=== PATIENT | female | born 1935 | race Caucasian/White ===

== ENCOUNTER → 2017-06-25 | Outpatient (CLI) | payer OTHER ==
[2017-06-25 12:34] LABS: BASO % 0.4 %; BASO ABS # 0.05 K/uL (0-0.2); EOS % 3.3 %; EOS ABS # 0.38 K/uL (0-0.5); HEMATOCRIT 41.9 % (37-47); IG# 0.01 K/uL (0.00-0.02); LYMPH % 25.4 %; LYMPH ABS # 2.89 K/uL (1.2-3.4); MEAN CELL VOLUME 92.9 fL (80-100); MEAN CORPUSCULAR HEMOGLOBIN 28.8 pg (25-34); MEAN PLATELET VOLUME 9.3 fL (7.4-10.4); MONO % 10.9 %; MONO ABS # 1.24 K/uL (0.11-0.59); NEUT % 59.9 %; NEUT ABS # 6.82 K/uL (1.4-6.5); PLATELET COUNT 523 K/uL (130-400); RED CELL DISTRIBUTION WIDTH CV 20.9 % (11.5-14.5); RED CELL DISTRIBUTION WIDTH SD 70.5 fL (36.4-46.3); WHITE BLOOD COUNT 11.39 K/uL (4.8-10.8)
[2017-06-25 12:59] LABS: ALBUMIN 3.4 gm/dl (3.4-5.0); ALT/SGPT 22 U/L (12-78); AST/SGOT 20 U/L (15-37); BLOOD UREA NITROGEN 23 mg/dl (7-18); CARBON DIOXIDE 32 mmol/L (21-32); CREATININE 0.82 mg/dl (0.60-1.20); GLUCOSE 84 mg/dl (70-99); POTASSIUM 4.1 mmol/L (3.5-5.1); SODIUM 138 mmol/L (136-145)
[2017-06-25 13:07] LABS: ALKALINE PHOSPHATASE 94 U/L (45-117); CHOLESTEROL 160 mg/dl (0-200); LDL CHOLESTEROL CALCULATED 76 mg/dl; TOTAL PROTEIN 7.3 gm/dl (6.4-8.2); TRANSFERRIN 253 mg/dl (200-360)
== END | disposition home or self-care (01) ==
LOC: C.LABMFLN 08:46
PROVIDERS: ATTEND Family Medicine
DX: E78.5 Hyperlipidemia, unspecified (principal); D64.9 Anemia, unspecified

== ENCOUNTER → 2017-07-31 | Outpatient (CLI) | payer OTHER ==
[2017-07-31 13:08] LABS: BASO % 0.3 %; BASO ABS # 0.03 K/uL (0-0.2); EOS % 1.1 %; EOS ABS # 0.13 K/uL (0-0.5); HEMATOCRIT 44.2 % (37-47); HEMOGLOBIN 13.9 g/dL (12.0-16.0); IG# 0.01 K/uL (0.00-0.02); LYMPH % 33.4 %; LYMPH ABS # 3.94 K/uL (1.2-3.4); MEAN CELL VOLUME 94.6 fL (80-100); MEAN CORPUSCULAR HEMOGLOBIN 29.8 pg (25-34); MEAN CORPUSCULAR HGB CONC 31.4 g/dl (32-36); MEAN PLATELET VOLUME 9.7 fL (7.4-10.4); MONO % 11.1 %; MONO ABS # 1.31 K/uL (0.11-0.59); NEUT ABS # 6.37 K/uL (1.4-6.5); PLATELET COUNT 481 K/uL (130-400); RED CELL DISTRIBUTION WIDTH SD 59.1 fL (36.4-46.3); WHITE BLOOD COUNT 11.79 K/uL (4.8-10.8)
== END | disposition home or self-care (01) ==
LOC: C.LABMFLN 09:23
PROVIDERS: ATTEND Family Medicine
DX: D64.9 Anemia, unspecified (principal)

== ENCOUNTER → 2017-09-04 | Outpatient (CLI) | payer OTHER ==
[2017-09-04 12:57] LABS: BASO % 0.3 %; BASO ABS # 0.04 K/uL (0-0.2); EOS % 1.5 %; EOS ABS # 0.17 K/uL (0-0.5); HEMATOCRIT 41.5 % (37-47); HEMOGLOBIN 13.6 g/dL (12.0-16.0); IG# 0.01 K/uL (0.00-0.02); LYMPH % 34.2 %; LYMPH ABS # 3.98 K/uL (1.2-3.4); MEAN CELL VOLUME 96.1 fL (80-100); MEAN CORPUSCULAR HEMOGLOBIN 31.5 pg (25-34); MEAN CORPUSCULAR HGB CONC 32.8 g/dl (32-36); MEAN PLATELET VOLUME 9.6 fL (7.4-10.4); MONO % 9.5 %; NEUT % 54.4 %; NEUT ABS # 6.33 K/uL (1.4-6.5); PLATELET COUNT 439 K/uL (130-400); RED CELL DISTRIBUTION WIDTH CV 15.2 % (11.5-14.5); RED CELL DISTRIBUTION WIDTH SD 53.1 fL (36.4-46.3); WHITE BLOOD COUNT 11.63 K/uL (4.8-10.8)
[2017-09-04 14:29] LABS: BLOOD UREA NITROGEN 20 mg/dl (7-18); CALCIUM 9.5 mg/dl (8.5-10.1); CARBON DIOXIDE 29 mmol/L (21-32); CREATININE 0.87 mg/dl (0.60-1.20); GLUCOSE 87 mg/dl (70-99); SODIUM 134 mmol/L (136-145)
[2017-09-04 14:32] LABS: TRANSFERRIN 307 mg/dl (200-360)
== END | disposition home or self-care (01) ==
LOC: C.LABMFLN 10:20
PROVIDERS: ATTEND Family Medicine
DX: D64.9 Anemia, unspecified (principal); I25.10 Atherosclerotic heart disease of native coronary artery without angina pectoris

== ENCOUNTER → 2017-09-24 | Outpatient (CLI) | payer OTHER ==
[2017-09-24 13:07] LABS: BASO % 0.2 %; BASO ABS # 0.03 K/uL (0-0.2); EOS % 1.5 %; HEMATOCRIT 40.9 % (37-47); HEMOGLOBIN 13.3 g/dL (12.0-16.0); IG# 0.02 K/uL (0.00-0.02); LYMPH ABS # 4.05 K/uL (1.2-3.4); MEAN CELL VOLUME 96.9 fL (80-100); MEAN CORPUSCULAR HEMOGLOBIN 31.5 pg (25-34); MEAN CORPUSCULAR HGB CONC 32.5 g/dl (32-36); MEAN PLATELET VOLUME 9.4 fL (7.4-10.4); MONO % 8.8 %; MONO ABS # 1.15 K/uL (0.11-0.59); NEUT % 58.3 %; NEUT ABS # 7.63 K/uL (1.4-6.5); PLATELET COUNT 490 K/uL (130-400); RED CELL DISTRIBUTION WIDTH CV 15.5 % (11.5-14.5); RED CELL DISTRIBUTION WIDTH SD 55.3 fL (36.4-46.3); WHITE BLOOD COUNT 13.08 K/uL (4.8-10.8)
[2017-09-24 13:32] LABS: BLOOD UREA NITROGEN 18 mg/dl (7-18); CALCIUM 9.1 mg/dl (8.5-10.1); CARBON DIOXIDE 33 mmol/L (21-32); CREATININE 0.92 mg/dl (0.60-1.20); GLUCOSE 76 mg/dl (70-99); POTASSIUM 4.1 mmol/L (3.5-5.1); SODIUM 139 mmol/L (136-145)
[2017-09-24 13:33] LABS: TRANSFERRIN 249 mg/dl (200-360)
== END | disposition home or self-care (01) ==
LOC: C.LABMFLN 09:15
PROVIDERS: ATTEND Family Medicine
DX: D64.9 Anemia, unspecified (principal); I25.10 Atherosclerotic heart disease of native coronary artery without angina pectoris

== ENCOUNTER → 2018-01-02 | Outpatient (CLI) | payer OTHER ==
[2018-01-02 12:36] LABS: BASO % 0.4 %; BASO ABS # 0.05 K/uL (0-0.2); EOS % 2.7 %; EOS ABS # 0.33 K/uL (0-0.5); HEMATOCRIT 42.3 % (37-47); HEMOGLOBIN 13.5 g/dL (12.0-16.0); IG# 0.01 K/uL (0.00-0.02); LYMPH % 39.3 %; LYMPH ABS # 4.89 K/uL (1.2-3.4); MEAN CELL VOLUME 97.5 fL (80-100); MEAN CORPUSCULAR HEMOGLOBIN 31.1 pg (25-34); MEAN CORPUSCULAR HGB CONC 31.9 g/dl (32-36); MEAN PLATELET VOLUME 9.5 fL (7.4-10.4); MONO % 11.1 %; MONO ABS # 1.38 K/uL (0.11-0.59); NEUT % 46.4 %; NEUT ABS # 5.77 K/uL (1.4-6.5); PLATELET COUNT 518 K/uL (130-400); RED CELL DISTRIBUTION WIDTH CV 13.9 % (11.5-14.5); RED CELL DISTRIBUTION WIDTH SD 49.7 fL (36.4-46.3); WHITE BLOOD COUNT 12.43 K/uL (4.8-10.8)
== END | disposition home or self-care (01) ==
LOC: C.LABMFLN 10:19
PROVIDERS: ATTEND Family Medicine
DX: D64.9 Anemia, unspecified (principal)

== ENCOUNTER 2019-09-22 16:28 | Inpatient (IN) ==
[2019-09-22] MEDS ORDERED: SODIUM CHLORIDE 0.9% 500 ML IV SCH (17:15)
--- NOTE | 2019-09-22 17:20 | Emergency Department Note ---
Impression & Plan Hypoxia, Mass of left lung, Atelectasis ED Provider Note NAME: IVAN SILVEIRA AGE: 83 SEX: F : 1935 ARRIVES VIA: Walk-In INFORMANT: Patient ED PROVIDER(S): Al Etienne DO CHIEF COMPLAINT: Shortness of breath HPI: Patient is an 83-year-old female who presents the ER for shortness of breath which started this past Friday. She notes that she was a previous smoker. No history of cancer. Shortness of breath has been getting gradually worse since Friday. She had an x-ray as an outpatient which showed a collapsed left upper lobe. She has pain on the left side of her chest which is been there since Friday as well. Pain has been fairly constant. Currently a 4 out of 10. No cough runny nose or fevers. No exposure to anyone with coronavirus. Denies any recent trips or travel. No travel out of state. No loss of taste or smell. No abdominal pain nausea vomiting diarrhea. No dysuria urgency or frequency. No other complaints with the exception of shortness of breath which is now resolved as she is on oxygen. ROS: See above HPI for pertinent positives & negatives. A total of 10 systems reviewed and were otherwise negative. PAST MEDICAL HISTORY:See Below PAST SURGICAL HISTORY:See Below FAMILY HISTORY:See Below SOCIAL HISTORY:See Below HOME MEDICATIONS:See Below ALLERGIES:See Below VITALS:See Below PHYSICAL EXAMINATION: GENERAL: Sitting up in bed, alert, well appearing, well nourished, no distress, non-toxic EYE EXAM: normal conjunctiva. PERRL and EOM's grossly intact. OROPHARYNX: no exudate, no erythema, lips, buccal mucosa, and tongue normal and mucous membranes are moist NECK: supple, no nuchal rigidity, no adenopathy, non-tender LUNGS: Loss of breath sounds in left upper lobe. Normal chest wall mechanics HEART: no murmurs, S1 normal and S2 normal ABDOMEN: abdomen soft, non-tender, normo-active bowel sounds, no masses, no rebound or guarding. BACK: Back is symmetrical on inspection and there is no deformity, no midline tenderness, no CVA tenderness. SKIN: no rashes and no bruising UPPER EXTREMITIES: upper extremities are grossly normal. LOWER EXTREMITIES: No pitting edema. Calves are equal bilateral NEURO EXAM: Normal sensorium, cranial nerves II-XII grossly intact, normal speech, no gross weakness of arms, no gross weakness of legs. MEDICAL DECISION MAKING: Patient is an 83-year-old female who presents the ER for left upper chest pain and shortness of breath which is been present since this past Friday. She had an x-ray performed as an outpatient which showed consolidation of the lung. She was referred into the ER. IV was established blood work was obtained. She was found to be hypoxic at 88% placed on 2 L nasal cannula. She had complete resolution of her symptoms at that time. Labs show mild leukocytosis of 12,000. Mild anemia at 11. INR unremarkable. BMP with a mild hypokalemia 2.9. She is given IV potassium. CO2 elevated at 33. LFTs bilirubin was unremarkable. Troponin was negative. BNP was elevated. UA was negative. COVID was negative and requested by the clay thrower. CT of the chest shows hilar adenopathy with a mass causing atelectasis. Discussed with the clay thrower and he was agreeable to keeping the patient here. Discussed with the hospitalist patient be admitted for further work-up. Patient was updated at bedside. Triage Nursing notes reviewed. Prior medical records reviewed Vital Signs: reviewed and remarkable for hypoxic Differential diagnosis: Differential diagnoses includes but is not limited to pneumonia, bronchitis, COPD/Asthma exacerbation, pneumothorax, pulmonary embolism, congestive heart failure, acute coronary syndrome ER treatment provided: See below Diagnostics interpreted by me: ECG: Sinus rhythm rate of 68 Normal axis T WI in the inferior leads Poor baseline PVC Normal QTC Cardiac Monitoring: An order was placed for continuous cardiac monitoring. The monitor shows a rate of 72 with sinus rhythm. Laboratory studies: As stated above and show below. Imaging studies: Portable AP upright 1 view of the chest shows n left mid lung/upper lobe infiltrate/atelectasis. CT of the chest shows left hilar mass causing atelectasis and collapse of the lung. Consultation(s): Discussed with Dr. Lopez from the clay thrower/stock wetter. Agreed with keeping the patient and recommended n.p.o. ED COURSE: Procedures: none Critical Care: I have personally spent 40 minutes of critical care time in the direct management of this patient. This includes bedside care, interpretation of diagnostic studies, and testing, discussion with consultants, patient, and family members, and other required patient management activities. This 40 minutes is in excess of all separately billable procedures. 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 Beliefs That Will Affect Care: None marital status: Current Living Situation: Alone current occupational status: retired Feels Safe at Home: Yes Smoking Status: Former smoker Tobacco Type: cigarettes ; Age Started Using Tobacco: 20 ; Age Quit Using Tobacco: 71 ; packs per day: 0.25 ; Second Hand Exposure: No ; Hx Alcohol Use: No Hx Substance Use: Yes substance use type: prescription drug Substance Use Type Other:: Hydrocodone-Acetaminophen Last Used Substance: Unknown Childhood Exposure to Second-Hand Smoke: No caffeine: Yes (tea and coffee) Dental Care, Regularly: Yes Physical Activity Frequency: Daily Seatbelt Use: always Sunscreen Use: Yes Do you think of yourself as: straight/heterosexual Allergies Allergies Allergy/AdvReac Type Severity Reaction Status Date / Time diclofenac Allergy Verified 09/21/19 10:57 dicloxacillin Allergy Verified 09/21/19 10:57 levofloxacin Allergy Verified 09/21/19 10:57 naproxen Allergy Verified 09/21/19 10:57 Penicillins Allergy Verified 09/21/19 10:57 risedronate sodium Allergy Verified 09/21/19 10:57 [From Actonel] Home Meds Home Medications Medication Instructions Recorded Confirmed rosuvastatin 20 mg tablet 20 mg PO HS tab 02/12/19 09/22/19 albuterol sulfate 2 puffs INHALATION Q4H PRN 09/22/19 09/22/19 albuterol sulfate 2.5 mg INHALATION QID 09/22/19 09/22/19 budesonide 1 mg INH QID 09/22/19 09/22/19 Previous Rx's Medication Instructions Recorded omeprazole 40 mg capsule,delayed 40 mg PO DAILY #90 cap 10/22/18 release Ca 600 mg-D3 800 unit-magnes 40 1 tab PO BID #180 tab 11/13/18 rb-sazh-krz-kevin-boron chewable tablet aspirin 81 mg tablet,delayed 81 mg PO DAILY #90 tab 11/13/18 release furosemide 40 mg tablet 40 mg PO DAILY #90 tab 07/05/19 metoprolol succinate 25 mg 12.5 mg PO DAILY #45 tab 11/13/18 tablet,extended release 24 hr multivitamin 1 tab PO DAILY #90 tab 11/13/18 nitroglycerin 0.4 mg sublingual 0.4 mg SL Q5M #30 tab 11/13/18 tablet Bifidobacterium infantis 4 mg 4 mg PO DAILY #30 cap 04/20/19 capsule acetaminophen 325 mg capsule 650 mg PO Q4H PRN #60 cap 04/20/19 chlorhexidine gluconate 0.12 % 15 ml BUCCAL BID #1500 ml 04/20/19 mouthwash cholecalciferol (vitamin D3) 50 2,000 units PO BID #30 tab 04/20/19 mcg (2,000 unit) tablet tiotropium bromide 18 mcg capsule 1 cap INH DAILY #20 puffs 05/06/19 with inhalation device tizanidine 2 mg capsule 1 mg PO TID PRN #90 cap 05/21/19 hydrocodone 5 mg-acetaminophen 325 1 tab PO Q6H PRN #120 tab 06/23/19 mg tablet gabapentin 300 mg capsule 300 mg PO QID #120 cap 08/16/19 sertraline 25 mg tablet 25 mg PO DAILY #90 tab 08/16/19 gabapentin 100 mg capsule 100 mg PO HS #90 cap 09/01/19 doxycycline hyclate 100 mg capsule 100 mg PO BID #20 cap 09/21/19 prednisone 20 mg tablet 20 mg PO DAILY #5 tab 09/21/19 Results & Data (ED) Vital Signs Vital Signs - 24 hr 09/22/19 16:29 09/22/19 18:17 09/22/19 19:17 Temperature 36.6 C Temperature Source Oral Pulse Rate 76 84 Pulse Rate [Left Finger] 66 Pulse Rate from SpO2 Sensor 76 Respiratory Rate 19 22 22 Blood Pressure 133/69 152/76 H Blood Pressure [Right Arm] 112/89 Blood Pressure Mean 90 111 Blood Pressure Mean [Right Arm] 96 Blood Pressure Position Sitting Pulse Oximetry 89 L 97 97 Oxygen Delivery Method Room Air Nasal Cannula Oxygen Flow Rate 2 Sepsis Recent Fever Within 48 Hours No Sepsis Action Taken by Nursing No Action Required 09/22/19 19:43 09/22/19 19:44 09/22/19 19:45 Temperature Temperature Source Pulse Rate 68 Pulse Rate [Left Finger] Pulse Rate from SpO2 Sensor 73 Respiratory Rate 24 Blood Pressure 133/83 Blood Pressure [Right Arm] Blood Pressure Mean 100 Blood Pressure Mean [Right Arm] Blood Pressure Position Pulse Oximetry 80 L 99 99 Oxygen Delivery Method Room Air Nasal Cannula Nasal Cannula Oxygen Flow Rate 2 2 Sepsis Recent Fever Within 48 Hours Sepsis Action Taken by Nursing 09/22/19 20:15 09/22/19 20:30 09/22/19 21:00 Temperature Temperature Source Pulse Rate 69 79 66 Pulse Rate [Left Finger] Pulse Rate from SpO2 Sensor 71 72 68 Respiratory Rate 24 22 24 Blood Pressure 147/85 H 116/95 127/76 Blood Pressure [Right Arm] Blood Pressure Mean 107 105 83 Blood Pressure Mean [Right Arm] Blood Pressure Position Pulse Oximetry 99 100 100 Oxygen Delivery Method Nasal Cannula Nasal Cannula Nasal Cannula Oxygen Flow Rate 2 2 2 Sepsis Recent Fever Within 48 Hours Sepsis Action Taken by Nursing 09/22/19 21:15 09/22/19 21:30 Temperature Temperature Source Pulse Rate 71 66 Pulse Rate [Left Finger] Pulse Rate from SpO2 Sensor 69 65 Respiratory Rate 24 22 Blood Pressure 139/66 129/76 Blood Pressure [Right Arm] Blood Pressure Mean 92 95 Blood Pressure Mean [Right Arm] Blood Pressure Position Pulse Oximetry 99 99 Oxygen Delivery Method Nasal Cannula Nasal Cannula Oxygen Flow Rate 2 2 Sepsis Recent Fever Within 48 Hours Sepsis Action Taken by Nursing Laboratory Data Result diagrams: 09/22/19 17:32 09/22/19 17:32 Lab Results 09/22/19 09/22/19 09/22/19 Range/Units 17:31 17:32 17:32 WBC 12.64 H (4.8-10.8) K/uL RBC 4.57 (4.2-5.4) M/uL Hgb 11.8 L (12.0-16.0) g/dL POC Hgb (12.0-16.0) g/dl Hct 37.8 (37-47) % POC Hct (37-47) % MCV 82.7 (80-100) fL MCH 25.8 (25-34) pg MCHC 31.2 L (32-36) g/dL RDW Std Deviation 55.9 H (36.4-46.3) fL RDW Coeff of Jj 18.7 H (11.5-14.5) % Plt Count 634 H (130-400) K/uL MPV 8.9 (7.4-10.4) fL Immature Gran % (Auto) 0.2 % Neut % (Auto) 84.1 % Lymph % (Auto) 10.7 % Jefferson % (Auto) 4.9 % Eos % (Auto) 0.0 % Baso % (Auto) 0.1 % Immature Gran # (Auto) 0.02 (0.00-0.02) K/uL Neut # (Auto) 10.64 H (1.4-6.5) K/uL Lymph # (Auto) 1.35 (1.2-3.4) K/uL Jefferson # (Auto) 0.62 H (0.11-0.59) K/uL Eos # (Auto) 0.00 (0-0.5) K/uL Baso # (Auto) 0.01 (0-0.2) K/uL PT 11.0 (9.0-12.0) Seconds INR 1.0 (0.9-1.1) APTT 29.3 (21.0-31.0) Seconds PTT Ratio 1.1 POC Sodium (135-144) mmol/L Sodium (136-145) mmol/L POC Potassium (3.3-5.0) mmol/L Potassium (3.5-5.1) mmol/L POC Chloride (101-112) mmol/L Chloride (98-107) mmol/L Carbon Dioxide (21-32) mmol/L POC Total CO2 (24-31) mmol/L Anion Gap (3-11) POC Anion Gap (16-25) mmol/L POC BUN (7-18) mg/dl BUN (7-18) mg/dl Creatinine (0.6-1.2) mg/dl POC Creatinine (0.6-1.3) mg/dl Est Cr Clr Drug Dosing Est GFR ( Amer) Est GFR (Non-Af Amer) BUN/Creatinine Ratio (10-20) Glucose (70-99) mg/dl POC Glucose (other) (70-99) mg/dl Calcium (8.5-10.1) mg/dl POC Ioniz Calcium Kedar (1.12-1.32) mmol/l Total Bilirubin (0.2-1) mg/dl AST (15-37) U/L ALT (12-78) U/L Alkaline Phosphatase (45-117) U/L Troponin I (0-0.045) ng/ml NT-Pro-B Natriuret Pep (0-1800) pg/ml Total Protein (6.4-8.2) gm/dl Albumin (3.4-5.0) gm/dl Globulin (2.5-4.0) gm/dl Albumin/Globulin Ratio (0.9-2) Urine Color Urine Appearance (Clear) Urine pH (4.5-7.5) Ur Specific Marion (1.000-1.030) Urine Protein (Negative) Urine Glucose (UA) (Negative) Urine Ketones (Negative) Urine Blood (Negative) Urine Nitrite (Negative) Urine Bilirubin (Negative) Urine Urobilinogen (Negative) Ur Leukocyte Esterase (Negative) COVID-19 PCR NEGATIVE (Negative) Influenza Type A (PCR) (Neg) Influenza Type B (PCR) (Neg) SARS-CoV-2 RNA (RT-PCR) 09/22/19 09/22/19 09/22/19 Range/Units 17:32 17:32 17:32 WBC (4.8-10.8) K/uL RBC (4.2-5.4) M/uL Hgb (12.0-16.0) g/dL POC Hgb (12.0-16.0) g/dl Hct (37-47) % POC Hct (37-47) % MCV (80-100) fL MCH (25-34) pg MCHC (32-36) g/dL RDW Std Deviation (36.4-46.3) fL RDW Coeff of Jj (11.5-14.5) % Plt Count (130-400) K/uL MPV (7.4-10.4) fL Immature Gran % (Auto) % Neut % (Auto) % Lymph % (Auto) % Jefferson % (Auto) % Eos % (Auto) % Baso % (Auto) % Immature Gran # (Auto) (0.00-0.02) K/uL Neut # (Auto) (1.4-6.5) K/uL Lymph # (Auto) (1.2-3.4) K/uL Jefferson # (Auto) (0.11-0.59) K/uL Eos # (Auto) (0-0.5) K/uL Baso # (Auto) (0-0.2) K/uL PT (9.0-12.0) Seconds INR (0.9-1.1) APTT (21.0-31.0) Seconds PTT Ratio POC Sodium (135-144) mmol/L Sodium 136 (136-145) mmol/L POC Potassium (3.3-5.0) mmol/L Potassium 2.9 L (3.5-5.1) mmol/L POC Chloride (101-112) mmol/L Chloride 97 L (98-107) mmol/L Carbon Dioxide 33 H (21-32) mmol/L POC Total CO2 (24-31) mmol/L Anion Gap 6.0 (3-11) POC Anion Gap (16-25) mmol/L POC BUN (7-18) mg/dl BUN 17 (7-18) mg/dl Creatinine 0.69 (0.6-1.2) mg/dl POC Creatinine (0.6-1.3) mg/dl Est Cr Clr Drug Dosing Not Reportable Est GFR ( Amer) 94.0 Est GFR (Non-Af Amer) 81.1 BUN/Creatinine Ratio 25.0 H (10-20) Glucose 119 H (70-99) mg/dl POC Glucose (other) (70-99) mg/dl Calcium 9.1 (8.5-10.1) mg/dl POC Ioniz Calcium Kedar (1.12-1.32) mmol/l Total Bilirubin 0.3 (0.2-1) mg/dl AST 23 (15-37) U/L ALT 17 (12-78) U/L Alkaline Phosphatase 82 (45-117) U/L Troponin I 0.018 (0-0.045) ng/ml NT-Pro-B Natriuret Pep 2691 H (0-1800) pg/ml Total Protein 7.6 (6.4-8.2) gm/dl Albumin 2.7 L (3.4-5.0) gm/dl Globulin 4.9 H (2.5-4.0) gm/dl Albumin/Globulin Ratio 0.6 L (0.9-2) Urine Color Urine Appearance (Clear) Urine pH (4.5-7.5) Ur Specific Marion (1.000-1.030) Urine Protein (Negative) Urine Glucose (UA) (Negative) Urine Ketones (Negative) Urine Blood (Negative) Urine Nitrite (Negative) Urine Bilirubin (Negative) Urine Urobilinogen (Negative) Ur Leukocyte Esterase (Negative) COVID-19 PCR (Negative) Influenza Type A (PCR) Neg for Influ A (Neg) Influenza Type B (PCR) Neg for Influ B (Neg) SARS-CoV-2 RNA (RT-PCR) Cancelled 09/22/19 09/22/19 Range/Units 17:44 19:37 WBC (4.8-10.8) K/uL RBC (4.2-5.4) M/uL Hgb (12.0-16.0) g/dL POC Hgb 13.3 (12.0-16.0) g/dl Hct (37-47) % POC Hct 39 (37-47) % MCV (80-100) fL MCH (25-34) pg MCHC (32-36) g/dL RDW Std Deviation (36.4-46.3) fL RDW Coeff of Jj (11.5-14.5) % Plt Count (130-400) K/uL MPV (7.4-10.4) fL Immature Gran % (Auto) % Neut % (Auto) % Lymph % (Auto) % Jefferson % (Auto) % Eos % (Auto) % Baso % (Auto) % Immature Gran # (Auto) (0.00-0.02) K/uL Neut # (Auto) (1.4-6.5) K/uL Lymph # (Auto) (1.2-3.4) K/uL Jefferson # (Auto) (0.11-0.59) K/uL Eos # (Auto) (0-0.5) K/uL Baso # (Auto) (0-0.2) K/uL PT (9.0-12.0) Seconds INR (0.9-1.1) APTT (21.0-31.0) Seconds PTT Ratio POC Sodium 138 (135-144) mmol/L Sodium (136-145) mmol/L POC Potassium 2.9 L (3.3-5.0) mmol/L Potassium (3.5-5.1) mmol/L POC Chloride 94 L (101-112) mmol/L Chloride (98-107) mmol/L Carbon Dioxide (21-32) mmol/L POC Total CO2 34 H (24-31) mmol/L Anion Gap (3-11) POC Anion Gap 14.0 L (16-25) mmol/L POC BUN 17 (7-18) mg/dl BUN (7-18) mg/dl Creatinine (0.6-1.2) mg/dl POC Creatinine 0.7 (0.6-1.3) mg/dl Est Cr Clr Drug Dosing Est GFR ( Amer) Est GFR (Non-Af Amer) BUN/Creatinine Ratio (10-20) Glucose (70-99) mg/dl POC Glucose (other) 118 H (70-99) mg/dl Calcium (8.5-10.1) mg/dl POC Ioniz Calcium Kedar 1.14 (1.12-1.32) mmol/l Total Bilirubin (0.2-1) mg/dl AST (15-37) U/L ALT (12-78) U/L Alkaline Phosphatase (45-117) U/L Troponin I (0-0.045) ng/ml NT-Pro-B Natriuret Pep (0-1800) pg/ml Total Protein (6.4-8.2) gm/dl Albumin (3.4-5.0) gm/dl Globulin (2.5-4.0) gm/dl Albumin/Globulin Ratio (0.9-2) Urine Color Yellow Urine Appearance Clear (Clear) Urine pH 5.0 (4.5-7.5) Ur Specific Marion > 1.045 H (1.000-1.030) Urine Protein Negative (Negative) Urine Glucose (UA) Negative (Negative) Urine Ketones Negative (Negative) Urine Blood Negative (Negative) Urine Nitrite Negative (Negative) Urine Bilirubin Negative (Negative) Urine Urobilinogen Negative (Negative) Ur Leukocyte Esterase Negative (Negative) COVID-19 PCR (Negative) Influenza Type A (PCR) (Neg) Influenza Type B (PCR) (Neg) SARS-CoV-2 RNA (RT-PCR) Administered Medications Ioversol (Optiray 320 100ml) 94 ml IV ONCE PRN PRN Reason: Interaction Checking Stop: 09/26/19 18:58 Last Admin: 09/22/19 19:00 Dose: 94 ml Documented by: [id number] Discontinued Medications Sodium Chloride (Nss) 500 mls @ 999 mls/hr IV .Q31M BLAS Stop: 09/22/19 17:45 Last Infusion: 09/22/19 19:23 Dose: 0 mls/hr Documented by: [id number] Admin: 09/22/19 17:30 Dose: 999 mls/hr Documented by: [id number] Potassium Chloride (K Alonso / Wtr) 10 meq in 100 mls @ 100 mls/hr IV Q1H BLAS Stop: 09/22/19 21:29 Last Admin: 09/22/19 21:14 Dose: 100 mls/hr Documented by: [id number] Infusion: 09/22/19 21:13 Dose: 0 mls/hr Documented by: [id number] Admin: 09/22/19 20:09 Dose: 100 mls/hr Documented by: [id number] Discharge Plan Visit Data Chief Complaint: Referred by Doctor Stated Complaint: CT SCAN, COLLAPSED LUNG ED Provider: Al Etienne Discharge Problem: Hypoxia, Mass of left lung, Atelectasis Forms Stand Alone Forms: [facility] Prescriptions Prescriptions: No Action omeprazole 40 mg capsule,delayed release(DR/EC) 40 mg PO DAILY Qty: 90 RF: 3 Align 4 mg capsule 4 mg PO DAILY Qty: 30 RF: 0 chlorhexidine gluconate 0.12 % mouthwash 15 ml BUCCAL BID Qty: 1500 RF: 0 cholecalciferol (vitamin D3) 2,000 unit tablet 2,000 units PO BID Qty: 30 RF: 0 acetaminophen 325 mg capsule 650 mg PO Q4H PRN (Reason: fever or pain) Qty: 60 RF: 0 Spiriva with HandiHaler 18 mcg capsule, w/inhalation device 1 cap INH DAILY Qty: 20 RF: 3 hydrocodone-acetaminophen 5-325 mg tablet 1 tab PO Q6H PRN (Reason: pain) Qty: 120 RF: 0 gabapentin 300 mg capsule 300 mg PO QID Qty: 120 RF: 3 sertraline 25 mg tablet 25 mg PO DAILY Qty: 90 RF: 0 gabapentin 100 mg capsule 100 mg PO HS Qty: 90 RF: 0 aspirin 81 mg tablet,delayed release (DR/EC) 81 mg PO DAILY Qty: 90 RF: 3 Caltrate 600-D Plus Minerals 600 mg calcium- 800 unit-40 mg tablet,chewable 1 tab PO BID Qty: 180 RF: 3 furosemide 40 mg tablet 40 mg PO DAILY Qty: 90 RF: 1 metoprolol succinate 25 mg tablet extended release 24 hr 12.5 mg PO DAILY Qty: 45 RF: 3 multivitamin [Daily Multi-Vitamin] tablet 1 tab PO DAILY Qty: 90 RF: 3 nitroglycerin 0.4 mg tablet, sublingual 0.4 mg SL Q5M Qty: 30 RF: 0 tizanidine 2 mg capsule 1 mg PO TID PRN (Reason: muscle spasticity) Qty: 90 RF: 3 rosuvastatin 20 mg tablet 20 mg PO HS RF: 0 doxycycline hyclate 100 mg capsule 100 mg PO BID Qty: 20 RF: 0 prednisone 20 mg tablet 20 mg PO DAILY Qty: 5 RF: 0 albuterol sulfate 2.5 mg /3 mL (0.083 %) solution for nebulization 2.5 mg inhalation QID RF: 0 albuterol sulfate 90 mcg/actuation HFA aerosol inhaler 2 puffs inhalation Q4H PRN (Reason: Shortness Of Breath Or Wheezing) RF: 0 budesonide 1 mg/2 mL suspension for nebulization 1 mg INH QID RF: 0
[2019-09-22 17:44] LABS: Basophils # (auto) 0.01 K/uL (0-0.2); Basophils % (auto) 0.1 %; Hematocrit (blood only) 37.8 % (37-47); Hemoglobin 11.8 g/dL (12.0-16.0); Immature Granulocytes # (auto) 0.02 K/uL (0.00-0.02); Immature Granulocytes % (auto) 0.2 %; Lymphocytes # (auto) 1.35 K/uL (1.2-3.4); Lymphocytes % (auto) 10.7 %; Mean Corpuscular Hemoglobin 25.8 pg (25-34); Mean Corpuscular Hgb Conc 31.2 g/dL (32-36); Mean Corpuscular Volume 82.7 fL (80-100); Mean Platelet Volume 8.9 fL (7.4-10.4); Monocytes # (auto) 0.62 K/uL (0.11-0.59); Monocytes % (auto) 4.9 %; Neutrophils # (auto) 10.64 K/uL (1.4-6.5); Neutrophils % (auto) 84.1 %; Platelet Count 634 K/uL (130-400); RDW Coefficient of Variation 18.7 % (11.5-14.5); RDW Standard Deviation 55.9 fL (36.4-46.3); Red Blood Count 4.57 M/uL (4.2-5.4); White Blood Count 12.64 K/uL (4.8-10.8)
[2019-09-22 17:55] LABS: Partial Thromboplastin Ratio 1.1; Partial Thromboplastin Time 29.3 Seconds (21.0-31.0)
--- NOTE | 2019-09-22 17:56 | XRay Report ---
XR chest 1V portable CLINICAL HISTORY: Dyspnea COMPARISON STUDY: No previous studies for comparison. FINDINGS: Patient is rotated. Incidental note is made of multiple healing right-sided rib fractures a nd an old right clavicular fracture. Intracanalicular electrode is partially imaged. There is no pneu mothorax. Linear right basilar opacity suggests atelectasis. Elevation of left hemidiaphragm is suspe cted. There may be a small to moderate left pleural effusion. Hazy left mid and upper lung opacity is noted with lucency adjacent to the aortic arch. Left hilar prominence is noted. IMPRESSION: 1. Left lung volume loss with elevation of the left hemidiaphragm and hazy left mid and upper lung ai rspace opacity with lucency outlining the aortic arch. This raises the possibility of left upper lobe collapse. A chest CT is recommended to exclude an underlying mass. 2. Suspected left pleural effusion. ACT 112: Negative or not required by law. Electronically signed by: Brian Last M.D. 09/22/2019 5:55 PM
[2019-09-22 17:57] LABS: iSTAT Creatinine 0.7 mg/dl (0.6-1.3); iSTAT Hemoglobin 13.3 g/dl (12.0-16.0); iSTAT Ionized Calcium 1.14 mmol/l (1.12-1.32); iSTAT Potassium 2.9 mmol/L (3.3-5.0)
[2019-09-22 18:01] LABS: Alanine Aminotransferase 17 U/L (12-78); Albumin Level 2.7 gm/dl (3.4-5.0); Aspartate Aminotransferase 23 U/L (15-37); Blood Urea Nitrogen 17 mg/dl (7-18); Calcium 9.1 mg/dl (8.5-10.1); Carbon Dioxide 33 mmol/L (21-32); Chloride 97 mmol/L (98-107); Est GFR (Non-African American) 81.1; Glucose 119 mg/dl (70-99); Potassium 2.9 mmol/L (3.5-5.1); Sodium 136 mmol/L (136-145)
[2019-09-22 18:06] LABS: Albumin Globulin Ratio 0.6 (0.9-2); Alkaline Phosphatase 82 U/L (45-117); Bilirubin,Total 0.3 mg/dl (0.2-1); Globulin 4.9 gm/dl (2.5-4.0); NT Pro B Type Natriuretic Pept 2691 pg/ml (0-1800); Total Protein 7.6 gm/dl (6.4-8.2); Troponin I 0.018 ng/ml (0-0.045)
[2019-09-22 18:47] LABS: Influenza A virus by PCR Neg for Influ A (Neg); Influenza B virus by PCR Neg for Influ B (Neg)
[2019-09-22] MEDS ORDERED: IOVERSOL 100ml IV PRN (18:59)
--- NOTE | 2019-09-22 19:16 | CT Scan Report ---
CT OF THE CHEST WITH IV CONTRAST CLINICAL HISTORY: Left upper lobe collapse. Possible mass. Abnormal chest x-ray. COMPARISON STUDY: Chest x-ray dated 09/22/2019 TECHNIQUE: Following the IV administration of 94 mL of Optiray-320, CT of the thorax was performed f rom the thoracic inlet to the lung bases. Images are reviewed in the axial, sagittal, and coronal yohan maye. IV contrast was administered without complication. A dose lowering technique was utilized adher ing to the principles of ALARA. CT DOSE: 269.44 mGycm FINDINGS: Thyroid: Imaged portions of the thyroid gland are normal in appearance. Thoracic aorta: The thoracic aorta is normal in course and caliber, noting standard 3-vessel arch maame amaury. No aneurysm or dissection is seen. Pulmonary vasculature: The pulmonary trunk is normal in caliber. There are no central filling defects identified to suggest pulmonary embolus. Note that this examination was not protocoled for the evalu ation of pulmonary emboli. HEART: The heart is enlarged. There are coronary artery calcifications. Lungs and pleural spaces: There is a small to moderate left pleural effusion. There is left upper lob e collapse secondary to a mass obstructing the left upper lobe bronchus. There is left infrahilar ate lectasis/consolidation with multifocal areas of subsegmental bronchial occlusion, mucous plugging afua ruel tumor. There is mild pulmonary emphysema. There are basilar atelectatic changes. There is right l ower lobe peribronchial thickening. Mediastinum: There is a 5 cm subcarinal mass/adenopathy. There is a left hilar mass obstructing the l eft upper lobe bronchus. The margin of the mass are difficult to distinguish from the collapsed left upper lobe. There is a pathologically enlarged 27 mm prevascular lymph node. There are mildly enlarge d right paratracheal lymph nodes. There is an enlarged precarinal lymph node. Kelsey: There is a left hilar mass/adenopathy. There are minimally enlarged right hilar lymph nodes. Axilla: Clear. Upper abdomen: Partially visualized upper abdominal viscera is within normal limits. Skeletal structures: Intraspinal catheter is visualized. No destructive skeletal lesions are evident. IMPRESSION: 1. Large left hilar and mediastinal mass measuring at least 5 cm with secondary occlusion of the left upper lobe bronchus and secondary left upper lobe consolidation/collapse 2. Pathologic mediastinal lymphadenopathy including a 24 mm precarinal lymph node, and 27 mm prevascu lar lymph node 3. [id number] left pleural effusion ACT 112: Negative or not required by law. Electronically signed by: Jose Fisher M.D. 09/22/2019 7:15 PM
[2019-09-22 19:52] LABS: Appearance Urine Clear (Clear); Bilirubin Urine Negative (Negative); Blood Urine Negative (Negative); Color Urine Yellow; Glucose Urine UA Negative (Negative); Ketones Urine Negative (Negative); Leukocyte Esterase Urine Negative (Negative); Nitrite Urine Negative (Negative); Protein Urine Negative (Negative); Specific Gravity Urine > 1.045 (1.000-1.030); Urobilinogen Urine Negative (Negative)
[2019-09-22] MEDS: POTASSIUM CHLORIDE / WTR 10 MEQ/100 ML PLCT IV SCH ×3 (20:09→23:39)
--- NOTE | 2019-09-22 21:17 | History & Physical Report ---
Date of Service September 22, 2019 Assessment & Plan (1) Mass of left lun yo F with PMH Afib, CAD s/p stent placement x2, COPD, HLD, lumbar disc disease admitted to the hospital for hypoxia secondary to a new left lung mass found on CXR and CT Chest. 1) Hypoxia secondary to new Left Lung Mass compressing left upper lobe bronchus - CT Chest: 1. Large left hilar and mediastinal mass measuring at least 5 cm with secondary occlusion of the left upper lobe bronchus and secondary left upper lobe consolidation/collapse 2. Pathologic mediastinal lymphadenopathy including a 24 mm precarinal lymph node, and 27 mm prevascular lymph node 3. [id number] left pleural effusion - dyspnea resolved on 2L NC - Pulmonary team consulted for bronchoscopy, management of new mass and lung collapse, appreciate recommendations going forward - Heme/Onc consulted for future management of mass, appreciate recommendations 2) Pleural Effusion - possible postobstructive pneumonia vs. parapneumonic effusion - WBC elevated to 12, afebrile at this time - initiated broad spectrum antibiotics with Vanc and Aztreonam to cover MRSA, G- , Anaerobes in setting of penicillin allergy 3) Hypokalemia - received 2 bags K in ED after initial K 2.9 - repeat BMP on transfer to floor showed K of 3.7; stopped K repletion after 1 bag. - with hx of CAD and stent placement, goal of K 3.5-4 4) Elevated BNP - no hx heart failure; per cardiology note, ECHO in 07/2017 showed EF 55-59% with hypo to a-kinetic basal inferior and basal inferoseptal segments - most likely increased cardiac stress secondary to compression from left sided lung mass - TTE ordered for AM for re-evaluation of cardiac function - home Lasix 40 mg PO continued - no peripheral edema on exam, however in setting of new mass and low albumin, she may be third spacing fluid into the effusion and tissues. Could benefit from IV lasix during hospital stay to offload 5) COPD - continued budesonide inhaler 6)CAD s/p stent placement x2 - continued metoprolol succ 12.5 daily - continued ASA 81, rosuvastatin 20 7) GERD - continued Pantoprazole 40 daily DVT ppx: lovenox FEN/GI: NPO, IV NS @ 92ml/hr Code Status: Full Code Dispo: Med/Surg (2) Dyspnea: (3) Lumbar disc disease: (4) Hyperlipidemia: (5) History of TIA (transient ischemic attack): (6) History of atrial fibrillation: (7) CAD (coronary artery disease): (8) COPD (chronic obstructive pulmonary disease): History of Present Illness 83 yo F with PMH Afib, CAD s/p stent placement x2, COPD, HLD, lumbar disc disease who presented to the emergency department after feeling short of breath for the past few days. She attests to increased dyspnea with exertion as well as at rest, which was resolved with initiation of 2L NC in the ED. Denies any associated cough, pain with inspiration, chest pain, nausea, vomiting. She has a remote 7.5 pack year smoking history (1/2 pack x 15 years) but quit 15 years ago. Denies any sick contacts, recent fevers or chills. Primary Care Provider: Rolo Ron DO Allergies Allergy/AdvReac Type Severity Reaction Status Date / Time diclofenac Allergy Verified 09/21/19 10:57 dicloxacillin Allergy Verified 09/21/19 10:57 levofloxacin Allergy Verified 09/21/19 10:57 naproxen Allergy Verified 09/21/19 10:57 Penicillins Allergy Verified 09/21/19 10:57 risedronate sodium Allergy Verified 09/21/19 10:57 [From Actonel] Home Medications Home Medications Medication Instructions Recorded Confirmed Type omeprazole 40 mg capsule,delayed 40 mg PO DAILY #90 cap 10/22/18 09/22/19 Rx release Ca 600 mg-D3 800 unit-magnes 40 1 tab PO BID #180 tab 11/13/18 09/22/19 Rx eo-gkun-xwz-kevin-boron chewable tablet aspirin 81 mg tablet,delayed 81 mg PO DAILY #90 tab 11/13/18 09/22/19 Rx release furosemide 40 mg tablet 40 mg PO DAILY #90 tab 11/13/18 09/22/19 Rx metoprolol succinate 25 mg 12.5 mg PO DAILY #45 tab 11/13/18 09/22/19 Rx tablet,extended release 24 hr multivitamin 1 tab PO DAILY #90 tab 11/13/18 09/22/19 Rx nitroglycerin 0.4 mg sublingual 0.4 mg SL Q5M #30 tab 11/13/18 09/22/19 Rx tablet rosuvastatin 20 mg tablet 20 mg PO HS tab 02/12/19 09/22/19 History Bifidobacterium infantis 4 mg 4 mg PO DAILY #30 cap 04/20/19 09/22/19 Rx capsule acetaminophen 325 mg capsule 650 mg PO Q4H PRN #60 cap 04/20/19 09/22/19 Rx chlorhexidine gluconate 0.12 % 15 ml BUCCAL BID #1500 ml 04/20/19 09/22/19 Rx mouthwash cholecalciferol (vitamin D3) 50 2,000 units PO BID #30 tab 04/20/19 09/22/19 Rx mcg (2,000 unit) tablet tiotropium bromide 18 mcg capsule 1 cap INH DAILY #20 puffs 05/06/19 09/22/19 Rx with inhalation device tizanidine 2 mg capsule 1 mg PO TID PRN #90 cap 05/21/19 09/22/19 Rx hydrocodone 5 mg-acetaminophen 325 1 tab PO Q6H PRN #120 tab 06/23/19 09/22/19 Rx mg tablet gabapentin 300 mg capsule 300 mg PO QID #120 cap 08/16/19 09/22/19 Rx sertraline 25 mg tablet 25 mg PO DAILY #90 tab 08/16/19 09/22/19 Rx gabapentin 100 mg capsule 100 mg PO HS #90 cap 09/01/19 09/22/19 Rx doxycycline hyclate 100 mg capsule 100 mg PO BID #20 cap 09/21/19 09/22/19 Rx prednisone 20 mg tablet 20 mg PO DAILY #5 tab 09/21/19 09/22/19 Rx albuterol sulfate 2 puffs INHALATION Q4H PRN 09/22/19 09/22/19 History albuterol sulfate 2.5 mg INHALATION QID 09/22/19 09/22/19 History budesonide 1 mg INH QID 09/22/19 09/22/19 History Past Med/Surg History Medical History Acid reflux (Chronic) Acquired lymphocytosis (Chronic) Anemia (Chronic) Arthritis (Chronic) CAD (coronary artery disease) (Chronic) COPD exacerbation (Chronic) History of atrial fibrillation (Chronic) History of [place] (myocardial infarction) (Chronic) History of TIA (transient ischemic attack) (Chronic) Hyperlipidemia (Chronic) Lumbar disc disease (Chronic) 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) Vitamin D deficiency (Chronic) Surgical History History of appendectomy History of cataract surgery History of cholecystectomy History of inguinal hernia repair History of splenectomy Family History Mother Hypertension Brother Gallbladder disease Denies family history of Ovarian cancer Prostate cancer Myocardial infarction Breast cancer Colorectal cancer Social History Preferred Language: Nepali Communication Ability: Unable Visual Impairment: Limited Hearing Ability: Normal 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 Beliefs That Will Affect Care: None marital status: Current Living Situation: Alone current occupational status: retired Other Information That Helps Us Care for You: No Feels Safe at Home: Yes Safety Concerns: Feels Safe At This Time Smoking Status: Former smoker Tobacco Type: cigarettes ; Age Started Using Tobacco: 20 ; Age Quit Using Tobacco: 71 ; packs per day: 0.25 ; Second Hand Exposure: No ; Hx Alcohol Use: No Hx Substance Use: Yes substance use type: does not use Substance Use Type Other:: Hydrocodone-Acetaminophen Last Used Substance: Unknown Childhood Exposure to Second-Hand Smoke: No caffeine: Yes (tea and coffee) Dental Care, Regularly: Yes Physical Activity Frequency: Daily Seatbelt Use: always Sunscreen Use: Yes Do you think of yourself as: straight/heterosexual Review of Systems Constitutional: no fever, no chills, no body aches and no fatigue Respiratory: + dyspnea and + dyspnea on exertion; no cough, no change in sputum, no hemoptysis and no pain on inspiration Cardiovascular: no chest pain, no dyspnea, no palpitations and no edema Gastrointestinal: no abdominal pain, no nausea, no vomiting, no constipation and no diarrhea/loose stools Genitourinary: no dysuria Physical Exam Constitutional: well developed and + thin; not ill appearing and not in distress Eyes: PERRL, conjunctivae normal, anicteric sclerae ENMT: external ear and nose normal, oropharynx normal Neck: trachea midline, no thyromegaly Respiratory: Respiratory effort normal, no breath sounds in left mid to upper lobe, no wheezes, rhonchi or crackles auscultated,no accessory muscle use Cardiovascular: atrial fibrillation with regular rate, no murmurs, rubs or gallops, no peripheral edema, no calf tenderness, normal capillary refill Gastrointestinal (Abdomen): normal bowel sounds, soft, nontender, no hepatos plenomegaly Results & Data Results & Data ([facility]) Vital Signs (Past 12 Hours) Vital Signs Temp Pulse Pulse Resp BP BP Pulse Ox 09/22/19 20:30 79 22 116/95 100 09/22/19 20:15 69 24 147/85 H 99 09/22/19 19:45 68 24 133/83 99 09/22/19 19:44 99 09/22/19 19:43 80 L 09/22/19 19:17 84 22 152/76 H 97 09/22/19 18:17 66 22 112/89 97 09/22/19 16:29 36.6 C 76 19 133/69 89 L Laboratory Results WBC 12.64 K/uL (4.8-10.8) H 09/22/19 17:32 RBC 4.57 M/uL (4.2-5.4) 09/22/19 17:32 Hgb 11.8 g/dL (12.0-16.0) L 09/22/19 17:32 POC Hgb 13.3 g/dl (12.0-16.0) 09/22/19 17:44 Hct 37.8 % (37-47) 09/22/19 17:32 POC Hct 39 % (37-47) 09/22/19 17:44 MCV 82.7 fL (80-100) 09/22/19 17:32 MCH 25.8 pg (25-34) 09/22/19 17:32 MCHC 31.2 g/dL (32-36) L 09/22/19 17:32 RDW Std Deviation 55.9 fL (36.4-46.3) H 09/22/19 17:32 RDW Coeff of Jj 18.7 % (11.5-14.5) H 09/22/19 17:32 Plt Count 634 K/uL (130-400) H 09/22/19 17:32 MPV 8.9 fL (7.4-10.4) 09/22/19 17:32 Immature Gran % (Auto) 0.2 % 09/22/19 17:32 Neut % (Auto) 84.1 % 09/22/19 17:32 Lymph % (Auto) 10.7 % 09/22/19 17:32 [place] % (Auto) 4.9 % 09/22/19 17:32 Eos % (Auto) 0.0 % 09/22/19 17:32 Baso % (Auto) 0.1 % 09/22/19 17:32 Immature Gran # (Auto) 0.02 K/uL (0.00-0.02) 09/22/19 17:32 Neut # (Auto) 10.64 K/uL (1.4-6.5) H 09/22/19 17:32 Lymph # (Auto) 1.35 K/uL (1.2-3.4) 09/22/19 17:32 [place] # (Auto) 0.62 K/uL (0.11-0.59) H 09/22/19 17:32 Eos # (Auto) 0.00 K/uL (0-0.5) 09/22/19 17:32 Baso # (Auto) 0.01 K/uL (0-0.2) 09/22/19 17:32 PT 11.0 Seconds (9.0-12.0) 09/22/19 17:32 INR 1.0 (0.9-1.1) 09/22/19 17:32 APTT 29.3 Seconds (21.0-31.0) 09/22/19 17:32 PTT Ratio 1.1 09/22/19 17:32 POC Sodium 138 mmol/L (135-144) 09/22/19 17:44 Sodium 136 mmol/L (136-145) 09/22/19 22:59 POC Potassium 2.9 mmol/L (3.3-5.0) L 09/22/19 17:44 Potassium 3.7 mmol/L (3.5-5.1) D 09/22/19 22:59 POC Chloride 94 mmol/L (101-112) L 09/22/19 17:44 Chloride 100 mmol/L (98-107) 09/22/19 22:59 Carbon Dioxide 31 mmol/L (21-32) 09/22/19 22:59 POC Total CO2 34 mmol/L (24-31) H 09/22/19 17:44 Anion Gap 5.0 (3-11) 09/22/19 22:59 POC Anion Gap 14.0 mmol/L (16-25) L 09/22/19 17:44 POC BUN 17 mg/dl (7-18) 09/22/19 17:44 BUN 14 mg/dl (7-18) 09/22/19 22:59 Creatinine 0.59 mg/dl (0.6-1.2) L 09/22/19 22:59 POC Creatinine 0.7 mg/dl (0.6-1.3) 09/22/19 17:44 Est Cr Clr Drug Dosing 58.1 ml/min 09/22/19 22:59 Est GFR ( Amer) 98.9 09/22/19 22:59 Est GFR (Non-Af Amer) 85.4 09/22/19 22:59 BUN/Creatinine Ratio 24.1 (10-20) H 09/22/19 22:59 Glucose 104 mg/dl (70-99) H 09/22/19 22:59 POC Glucose (other) 118 mg/dl (70-99) H 09/22/19 17:44 Calcium 8.7 mg/dl (8.5-10.1) 09/22/19 22:59 POC Ioniz Calcium [place] 1.14 mmol/l (1.12-1.32) 09/22/19 17:44 Total Bilirubin 0.3 mg/dl (0.2-1) 09/22/19 17:32 AST 23 U/L (15-37) 09/22/19 17:32 ALT 17 U/L (12-78) 09/22/19 17:32 Alkaline Phosphatase 82 U/L (45-117) 09/22/19 17:32 Troponin I 0.018 ng/ml (0-0.045) 09/22/19 17:32 NT-Pro-B Natriuret Pep 2691 pg/ml (0-1800) H 09/22/19 17:32 Total Protein 7.6 gm/dl (6.4-8.2) 09/22/19 17:32 Albumin 2.7 gm/dl (3.4-5.0) L 09/22/19 17:32 Globulin 4.9 gm/dl (2.5-4.0) H 09/22/19 17:32 Albumin/Globulin Ratio 0.6 (0.9-2) L 09/22/19 17:32 Urine Color Yellow 09/22/19 19:37 Urine Appearance Clear (Clear) 09/22/19 19:37 Urine pH 5.0 (4.5-7.5) 09/22/19 19:37 Ur Specific [place] > 1.045 (1.000-1.030) H 09/22/19 19:37 Urine Protein Negative (Negative) 09/22/19 19:37 Urine Glucose (UA) Negative (Negative) 09/22/19 19:37 Urine Ketones Negative (Negative) 09/22/19 19:37 Urine Blood Negative (Negative) 09/22/19 19:37 Urine Nitrite Negative (Negative) 09/22/19 19:37 Urine Bilirubin Negative (Negative) 09/22/19 19:37 Urine Urobilinogen Negative (Negative) 09/22/19 19:37 Ur Leukocyte Esterase Negative (Negative) 09/22/19 19:37 Nasal Screen MRSA (PCR) Negative (Negative) 09/22/19 21:55 COVID-19 PCR NEGATIVE (Negative) 09/22/19 17:31 Influenza Type A (PCR) Neg for Influ A (Neg) 09/22/19 17:32 Influenza Type B (PCR) Neg for Influ B (Neg) 09/22/19 17:32 SARS-CoV-2 RNA (RT-PCR) Cancelled 09/22/19 17:32 CT Chest: 1. Large left hilar and mediastinal mass measuring at least 5 cm with secondary occlusion of the left upper lobe bronchus and secondary left upper lobe consolidation/collapse 2. Pathologic mediastinal lymphadenopathy including a 24 mm precarinal lymph node, and 27 mm prevascular lymph node 3. [id number] left pleural effusion Code Status & VTE Plan VTE Prophylaxis Plan VTE Prophylaxis will be ordered: Yes Supervising Physician Co-Signing Physician Notes Attending addendum: I have physically seen this patient, have supervised the medical residents activities, and agree with the H&P unless as otherwise noted. Assessment and Plan: New left lung mass with left upper lobe collapse/postobstructive pneumonia/parapneumonic effusion/COPD- Admit to monitored bed. Duonebs every 4 hours while awake and every 2 hours when necessary. Vancomycin IV and aztreonam IV. Sputum Gram stain and culture. Nasal cannula 2 L, titrate to keep pulse ox 94%. Consult pulmonology. Will need hematology/oncology in the future. Hypokalemia- Replace IV with riders and IV fluids. Repeat laboratories in a.m. Remainder of orders and notations as noted. Resident Activity Tracking Resident Involvement: Resident Care Provided Care Provided: [facility]
[2019-09-22] MEDS ORDERED: PATIENT'S HEIGHT AND/OR WEIGHT NEEDED SCH (21:30)
[2019-09-22] MEDS ORDERED: VANCOMYCIN CONSULT ACTIVE PRN ×2 (22:47)
[2019-09-22] MEDS ORDERED: VANCOMYCIN HCL 2,000 MG in SODIUM CHLORIDE 0.9% 500 ML IV ONE (22:47)
[2019-09-22] MEDS ORDERED: VANCOMYCIN HCL 1,250 MG in SODIUM CHLORIDE 0.9% 250 ML IV SCH (23:00)
[2019-09-22 23:34] LABS: BUN Creatinine Ratio 24.1 (10-20); Calcium 8.7 mg/dl (8.5-10.1); Creatinine Clr Calc Pharmacy 58.1 ml/min; Est GFR (African American) 98.9; Est GFR (Non-African American) 85.4; Potassium 3.7 mmol/L (3.5-5.1)
[2019-09-22] MEDS: GABAPENTIN 300 MG CAP PO SCH (23:40)
[2019-09-22] MEDS: GABAPENTIN 100 MG CAP PO SCH (23:40)
[2019-09-22] MEDS: ROSUVASTATIN CALCIUM 20 MG TAB PO SCH (23:40)
[2019-09-23] MEDS: ALBUTEROL 0.5% NEB SOLN 2.5 MG/0.5 ML VIAL NEB SCH ×3 (00:42→13:13)
[2019-09-23] MEDS ORDERED: Nursing to Pharmacy Communication ONE (01:19)
[2019-09-23] MEDS: POTASSIUM CHLORIDE / WTR 10 MEQ/100 ML PLCT IV SCH (01:22)
[2019-09-23] MEDS: AZTREONAM 2,000 MG in DEXTROSE 5% 100 ML IV SCH ×3 (02:26→18:02)
[2019-09-23] MEDS: SODIUM CHLORIDE 0.9% 1000ML 1,000 ML IV SCH ×2 (02:26→14:06)
[2019-09-23] MEDS: BUDESONIDE 0.5 MG/2 ML VIAL (PULMICORT) INH SCH ×2 (07:11→13:13)
[2019-09-23] MEDS ORDERED: FUROSEMIDE 40 MG TAB PO SCH (09:00)
--- NOTE | 2019-09-23 10:26 | Pulmonary Consultation ---
Date of Consultation September 23, 2019 Assessment & Plan (1) Mass of left lung: --Acute hypoxic respiratory failure secondary to left upper lobe mass with mediastinal lymphadenopathy In a patient who is a smoker High likelihood of malignancy Plan is to do a bronchoscopy with EBUS today Risk and benefits of the procedure explained to the patient in depth. All questions were answered. Will proceed with the procedure later today. --Left-sided pleural effusion We will address it once the bronchoscopy has been done. --History of A. fib Not on anticoagulation with history of subdural hematoma in the past. CT chest personally reviewed: Patient has total collapse of the left upper lobe with mediastinal shift to the left, mediastinal lymph nodes are enlarged station 4L station 7 and big lung masses appreciated in the left main. Please note the above document was generated using voice recognition software. It may contain grammatical, syntax or spelling errors. (2) COPD (chronic obstructive pulmonary disease): (3) History of atrial fibrillation: History of Present Illness Attending Physician: Al Mi DO History of Present Illness 83-year-old female with past medical history of COPD, subdural hematoma, A. fib not on anticoagulation, coronary artery disease status post stents in 2016 was admitted to hospital because of finding on the chest x-ray left upper lobe pneumonia with mediastinal mass. At the time of examination patient was complaining of shortness of breath which has been going on since last couple of weeks progressively getting worse. On further asking if this is only going on since the last 2 to 3 weeks she said this has been going on for years but in the last 3 weeks it has been getting worse. Patient does complain of weight loss. Denies any night sweats, no dysuria, no diarrhea, no hematuria, no hematochezia. Patient denies any headache, no blurry vision. No recent travel history Social history: Approximately 07-60-kyir-year history quit 15 years ago, no illicit drug use, no alcohol use Has a dog at home which is not allergic to Allergies Allergy/AdvReac Type Severity Reaction Status Date / Time diclofenac Allergy Verified 09/21/19 10:57 dicloxacillin Allergy Verified 09/21/19 10:57 levofloxacin Allergy Verified 09/21/19 10:57 naproxen Allergy Verified 09/21/19 10:57 Penicillins Allergy Verified 09/21/19 10:57 risedronate sodium Allergy Verified 09/21/19 10:57 [From Actonel] Home Medications Home Medications Medication Instructions Recorded Confirmed Type omeprazole 40 mg capsule,delayed 40 mg PO DAILY #90 cap 10/22/18 09/22/19 Rx release Ca 600 mg-D3 800 unit-magnes 40 1 tab PO BID #180 tab 11/13/18 09/22/19 Rx ur-jdui-csa-kevin-boron chewable tablet aspirin 81 mg tablet,delayed 81 mg PO DAILY #90 tab 11/13/18 09/22/19 Rx release furosemide 40 mg tablet 40 mg PO DAILY #90 tab 11/13/18 09/22/19 Rx metoprolol succinate 25 mg 12.5 mg PO DAILY #45 tab 11/13/18 09/22/19 Rx tablet,extended release 24 hr multivitamin 1 tab PO DAILY #90 tab 11/13/18 09/22/19 Rx nitroglycerin 0.4 mg sublingual 0.4 mg SL Q5M #30 tab 11/13/18 09/22/19 Rx tablet rosuvastatin 20 mg tablet 20 mg PO HS tab 02/12/19 09/22/19 History Bifidobacterium infantis 4 mg 4 mg PO DAILY #30 cap 04/20/19 09/22/19 Rx capsule acetaminophen 325 mg capsule 650 mg PO Q4H PRN #60 cap 04/20/19 09/22/19 Rx chlorhexidine gluconate 0.12 % 15 ml BUCCAL BID #1500 ml 04/20/19 09/22/19 Rx mouthwash cholecalciferol (vitamin D3) 50 2,000 units PO BID #30 tab 04/20/19 09/22/19 Rx mcg (2,000 unit) tablet tiotropium bromide 18 mcg capsule 1 cap INH DAILY #20 puffs 05/06/19 09/22/19 Rx with inhalation device tizanidine 2 mg capsule 1 mg PO TID PRN #90 cap 05/21/19 09/22/19 Rx hydrocodone 5 mg-acetaminophen 325 1 tab PO Q6H PRN #120 tab 06/23/19 09/22/19 Rx mg tablet gabapentin 300 mg capsule 300 mg PO QID #120 cap 08/16/19 09/22/19 Rx sertraline 25 mg tablet 25 mg PO DAILY #90 tab 04/06/20 05/13/20 Rx gabapentin 100 mg capsule 100 mg PO HS #90 cap 09/01/19 09/22/19 Rx doxycycline hyclate 100 mg capsule 100 mg PO BID #20 cap 09/21/19 09/22/19 Rx prednisone 20 mg tablet 20 mg PO DAILY #5 tab 09/21/19 09/22/19 Rx albuterol sulfate 2 puffs INHALATION Q4H PRN 09/22/19 09/22/19 History albuterol sulfate 2.5 mg INHALATION QID 09/22/19 09/22/19 History budesonide 1 mg INH QID 09/22/19 09/22/19 History Patient History Medical History Acid reflux (Chronic) Acquired lymphocytosis (Chronic) Anemia (Chronic) Arthritis (Chronic) CAD (coronary artery disease) (Chronic) COPD exacerbation (Chronic) History of atrial fibrillation (Chronic) History of [place] (myocardial infarction) (Chronic) History of TIA (transient ischemic attack) (Chronic) Hyperlipidemia (Chronic) Lumbar disc disease (Chronic) 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) Vitamin D deficiency (Chronic) Surgical History History of appendectomy History of cataract surgery History of cholecystectomy History of inguinal hernia repair History of splenectomy Family History Mother Hypertension Brother Gallbladder disease Denies family history of Ovarian cancer Prostate cancer Myocardial infarction Breast cancer Colorectal cancer Social History Preferred Language: [place] Communication Ability: Effective Visual Impairment: Limited Hearing Ability: Normal 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 Beliefs That Will Affect Care: None marital status: Current Living Situation: Alone current occupational status: retired Other Information That Helps Us Care for You: No Feels Safe at Home: Yes Safety Concerns: Feels Safe At This Time Smoking Status: Former smoker Tobacco Type: cigarettes ; 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20 ; Age Quit Using Tobacco: 71 ; packs per day: 0.25 ; Second Hand Exposure: No ; Hx Alcohol Use: No Hx Substance Use: Yes substance use type: does not use Substance Use Type Other:: Hydrocodone-Acetaminophen Last Used Substance: Unknown Childhood Exposure to Second-Hand Smoke: No caffeine: Yes (tea and coffee) Dental Care, Regularly: Yes Physical Activity Frequency: Daily Seatbelt Use: always Sunscreen Use: Yes Do you think of yourself as: straight/heterosexual Review of Systems Review of Systems: All systems reviewed & are unremarkable except as noted in HPI & below Physical Exam Physical Exam: Constitutional: No acute distress HEENT: EOMI, PERRLA, arcus senilis bilaterally Respiratory system: Decreased air entry on the left side, no wheeze, no rhonchi, positive crackles left lower lobe CVS: S1-S2 positive, no murmurs or gallops Abdomen: Soft, nontender, nondistended, positive bowel sounds x4 Extremities: +2 pulses bilaterally radialis/ dorsalis pedis, no cyanosis, no edema, weak left upper extremity Neuro: Awake alert oriented x3 Psych: Normal mood and affect G/U: No [place] Skin: no rashes, warm and dry Lymphatic: no cervical or axillary lymphadenopathy Results & Data Results & Data ([facility]) Vital Signs (Past 12 Hours) Vital Signs Temp Pulse Pulse Resp BP Pulse Ox 09/23/19 07:26 36.6 C 76 18 136/72 96 09/23/19 07:16 83 09/23/19 07:11 81 18 96 09/23/19 03:01 36.8 C 82 20 134/68 92 09/23/19 02:18 81 09/23/19 00:45 70 16 95 09/22/19 23:13 36.8 C 69 18 150/73 H 98 09/22/19 17:32 09/22/19 22:59 PG Care Time/CCT Total # of Minutes Spent Total Time Spent with Patient: Total time spent is greater than 50% in coordination of care (as documented) at patient's floor/unit and/or counseling patient: [place] [address] Initial Inpt Care Lvl 3 Patient Type New Diagnoses Mass of left lung R91.8 COPD (chronic obstructive pulmonary disease) J44.9 History of atrial fibrillation Z86.79
--- NOTE | 2019-09-23 10:27 | History & Physical Bridge Note ---
Date of Service September 23, 2019 History & Physical Bridge Note I have examined the patient, reviewed the History & Physical and in the interval since the performance of the History & Physical I have noted the following changes of clinical significance: no changes noted
--- NOTE | 2019-09-23 10:27 | Pre Anesthesia Assessment ---
Date of Service September 23, 2019 Pre Sedation Assessment Vital Signs Temp Pulse Pulse Resp BP BP Pulse Ox 09/23/19 12:05 108 H 14 126/83 93 09/23/19 12:00 108 H 14 93/72 L 95 09/23/19 11:55 124 H 14 92/64 L 96 09/23/19 11:50 117 H 14 127/73 97 09/23/19 11:47 153 H 111/87 09/23/19 11:45 145 H 14 81/71 L 96 09/23/19 11:40 128 H 14 111/87 91 09/23/19 11:35 124 H 14 114/65 90 09/23/19 11:30 145 H 12 122/84 89 L 09/23/19 11:25 148 H 12 117/79 90 09/23/19 11:20 148 H 12 147/93 H 89 L 09/23/19 11:15 109 H 12 156/130 H 86 L 09/23/19 11:10 101 H 14 146/103 H 88 L 09/23/19 11:05 104 H 12 159/75 H 90 09/23/19 11:00 89 12 138/67 88 L 09/23/19 10:55 96 H 14 136/78 88 L 09/23/19 10:50 90 14 116/65 96 09/23/19 10:45 78 14 132/63 98 09/23/19 10:30 80 14 138/74 99 09/23/19 10:25 87 14 129/88 100 09/23/19 07:26 36.6 C 76 18 136/72 96 09/23/19 07:16 83 09/23/19 07:11 81 18 96 09/23/19 03:01 36.8 C 82 20 134/68 92 09/23/19 02:18 81 09/23/19 00:45 70 16 95 09/22/19 23:13 36.8 C 69 18 150/73 H 98 09/22/19 22:15 64 22 137/70 97 09/22/19 22:01 92 H 24 138/81 93 09/22/19 22:00 70 30 H 94 09/22/19 21:30 66 22 129/76 99 09/22/19 21:15 71 24 139/66 99 09/22/19 21:00 66 24 127/76 100 09/22/19 20:30 79 22 116/95 100 09/22/19 20:15 69 24 147/85 H 99 09/22/19 19:45 68 24 133/83 99 09/22/19 19:44 99 09/22/19 19:43 80 L 09/22/19 19:17 84 22 152/76 H 97 09/22/19 18:17 66 22 112/89 97 09/22/19 16:29 36.6 C 76 19 133/69 89 L Cardiovascular RRR, no murmur, no edema Respiratory + respiratory effort normal Pre-Sedation Airway Assessment Smoking Status: Former smoker Hx Sleep Apnea: No Hx Difficult Intubation: No Short, Thick Neck: No Mallampati Class: II ASA: ASA3 Procedure Planning Contraindications for Sedation: none Current Medications Reviewed: Yes Notes The planned sedation has been discussed with the patient. Informed Consent was obtained. I have identified the patient, determined the appropriateness of sedation and have assessed the patient immediately prior to the procedure. All medicine(s) and interventions are by my order.
[2019-09-23] MEDS: ENOXAPARIN INJ 40 MG/0.4 ML SYR SQ SCH (10:56)
[2019-09-23] MEDS: ASPIRIN 81 MG ECTAB PO SCH (10:56)
[2019-09-23] MEDS ORDERED: LIDOCAINE HCL 2% (LOCAL) INJ 50 ML VIAL INSTIL ONE (11:38)
[2019-09-23] MEDS ORDERED: MIDAZOLAM HCL 1 MG/ML 2ML VIAL IV STA (11:38)
[2019-09-23] MEDS ORDERED: fentaNYL citrate 100 MCG/2 ML VIAL IV ONE (11:38)
--- NOTE | 2019-09-23 11:40 | Procedure Note ---
Procedure Note Date of Service September 23, 2019 PREOPERATIVE DIAGNOSIS: Left upper lobe mass with mediastinal lymphadenopathy POSTOPERATIVE DIAGNOSIS: Left upper lobe mass with mediastinal adenopathy PROCEDURE PERFORMED: EBUS with TBNA, FNA of the mass, flexible bronchoscopy COMPLICATIONS: None. INDICATION: As above PROCEDURE: After obtaining an informed consent, the patient was brought to the Bronchoscopy Suite. The patient had appropriate oxygen, blood pressure, heart rate, and respiratory rate monitoring applied and monitored continuously throughout the procedure. Supplemental oxygen via nasal cannula as per nursing records was applied to the nasopharynx with adequate saturations achieved. Topical anesthesia with nebulized 1% lidocaine was achieved. Subsequent to this, the patient was premedicated with 8 mg of midazolam and 100 mcg of fentanyl. Upper Airway: The oropharynx and larynx were well visualized and did not show any deformity. There was normal vocal cord motion without masses or lesions. Additional topical anesthesia with 1% lidocaine was applied to the trachea and taina. The trachea appeared normal.The bronchoscope was then advanced through the taina, which was sharp. The scope was then advanced into the right main stem and each segment, subsegement in the right upper lobe, right middle lobe and right lower lobe were visualized. There was copious amount of thick whitish secretion. There were no other findings including evidence of mass, anatomic distortions, or hemorrhage. The bronchoscope was subsequently withdrawn and advanced into the left mainstem. Again, each segment and subsegment was well visualized. The left main lumen was constricted. There was intraluminal growth appreciated. Bronchoscope was able to be passed through it. The mucosa was very friable. No significant secretions appreciated. EBUS was inserted and station 4L, station 7 in the left upper lobe mass was b iopsied. The bronchoscope was then withdrawn to the mainstem. The area was suctioned clear. The bronchoscope was then withdrawn. TBNA samples were sent for cell count, Gram stain and cytology. During the end of the procedure patient went into A. fib with RVR. Forceps biopsy was not performed. And the procedure was terminated. Recommendations: Follow-up cytology and culture. Coding CPT Codes Pulmonary/Thoracic - Pulmonary and Thoracic: 72507 Bronchoscopy w bronchial or endobronchial bx ([id number]) Pulmonary/Thoracic - Pulmonary and Thoracic: 46944 Bronchoscopy, w/EBUS 1 or 2 mediastinal ([id number]) Sedation/Anesthesia - Sedation/Anesthesia: 02737 Mod Sedation by the same physician;Init15 Min Child Age 5 & Up ([id number]) Sedation/Anesthesia - Sedation/Anesthesia: 32046 Mod Sedation by a different physician;Ea Additional 15 Minutes ([id number]) Sedation/Anesthesia - Sedation/Anesthesia: 01375 Mod Sedation by a different physician;Ea Additional 15 Minutes ([id number]) [facility] [place] Codes (Charges) Pulmonary/Thoracic Procedure 1: Pulmonary and Thoracic: 91152 Bronchoscopy w bronchial or endobronchial bx Procedure 2: Pulmonary and Thoracic: 12961 Bronchoscopy, w/EBUS 1 or 2 mediastinal Sedation/Anesthesia Procedure 1: Sedation/Anesthesia: 79917 Mod Sedation by the same physician;Init15 Min Child Age 5 & Up Total Sedation Time (minutes): 42 Procedure 2: Sedation/Anesthesia: 63650 Mod Sedation by a different physician;Ea Additional 15 Minutes Total Sedation Time (minutes): 42 Procedure 3: Sedation/Anesthesia: 55419 Mod Sedation by a different physician;Ea Additional 15 Minutes Total Sedation Time (minutes): 42
[2019-09-23] MEDS ORDERED: METOPROLOL TARTRATE 1 MG/ML VIAL IV ONE (11:44)
[2019-09-23] MEDS ORDERED: METOPROLOL TARTRATE 1 MG/ML VIAL IV STA (11:45)
[2019-09-23] MEDS ORDERED: LIDOCAINE 4% INH SOLN 4 ML BTL NAE ONE (11:58)
--- NOTE | 2019-09-23 12:10 | Post Anesthesia Assessment ---
Date of Service September 23, 2019 Post Sedation Assessment Vital Signs Temp Pulse Pulse Resp BP BP Pulse Ox 09/23/19 12:05 108 H 14 126/83 93 09/23/19 12:00 108 H 14 93/72 L 95 09/23/19 11:55 124 H 14 92/64 L 96 09/23/19 11:50 117 H 14 127/73 97 09/23/19 11:47 153 H 111/87 09/23/19 11:45 145 H 14 81/71 L 96 09/23/19 11:40 128 H 14 111/87 91 09/23/19 11:35 124 H 14 114/65 90 09/23/19 11:30 145 H 12 122/84 89 L 09/23/19 11:25 148 H 12 117/79 90 09/23/19 11:20 148 H 12 147/93 H 89 L 09/23/19 11:15 109 H 12 156/130 H 86 L 09/23/19 11:10 101 H 14 146/103 H 88 L 09/23/19 11:05 104 H 12 159/75 H 90 09/23/19 11:00 89 12 138/67 88 L 09/23/19 10:55 96 H 14 136/78 88 L 09/23/19 10:50 90 14 116/65 96 09/23/19 10:45 78 14 132/63 98 09/23/19 10:30 80 14 138/74 99 09/23/19 10:25 87 14 129/88 100 09/23/19 07:26 36.6 C 76 18 136/72 96 09/23/19 07:16 83 09/23/19 07:11 81 18 96 09/23/19 03:01 36.8 C 82 20 134/68 92 09/23/19 02:18 81 09/23/19 00:45 70 16 95 09/22/19 23:13 36.8 C 69 18 150/73 H 98 09/22/19 22:15 64 22 137/70 97 09/22/19 22:01 92 H 24 138/81 93 09/22/19 22:00 70 30 H 94 09/22/19 21:30 66 22 129/76 99 09/22/19 21:15 71 24 139/66 99 09/22/19 21:00 66 24 127/76 100 09/22/19 20:30 79 22 116/95 100 09/22/19 20:15 69 24 147/85 H 99 09/22/19 19:45 68 24 133/83 99 09/22/19 19:44 99 09/22/19 19:43 80 L 09/22/19 19:17 84 22 152/76 H 97 09/22/19 18:17 66 22 112/89 97 09/22/19 16:29 36.6 C 76 19 133/69 89 L Recovery Score Activity: Moves 4 extremities Respiration: Dyspnea/Limited Breathing Circulation: +/-20% PreAnes Value Consciousness: Arouseable (by name) Oxygen Saturation: O2 needed for >90% Post Anesthesia Score: 7 Discharge Sedation Level of Care: Phase I Post Sedation Plan On clinical assessment, the patient appears to have tolerated the sedation without complications. Patient is recovering as anticipated. Patient will continue to be monitored by nursing and may be discharged when sedation discharge criteria are met per below protocol. Upon Completions of procedure up to 15 minutes continue every 5 minute vital signs and the P.A.R. score; then discharge to a Phase I or Fast Track to Phase II per the following guidelines: * Discharge Patient to appropriate Phase II area if PAR is 8 or greater or return to pre- procedure baseline. The post - procedure orders will be as directed. * If PAR score is less than 8 or not return to pre-procedure baseline then patient will follow Phase I monitoring till PAR is reached for Phase II. The Phase I may be done in procedure room or may call to secure a Phase I area. * If naloxone or flumazenil are used for reversal, hold in Phase I for continued monitoring from when last reversal dose was given for a minimum of 60 minutes or longer pending the nurse and/or physician discretion of patient condition before discharge to Phase II. Please call the Sedation Physician to re-evaluate and complete post-note for discharge to Phase II area. Do NOT discharge from procedure sedation or Phase 1 until post- sedation nanette luation note is complete by procedure /sedation MD Sedation Discharge Instructions to be given to the patient at discharge to home.
[2019-09-23] MEDS ORDERED: METOPROLOL TARTRATE 1 MG/ML VIAL IV PRN (12:22)
[2019-09-23] MEDS ORDERED: NALOXONE HCL 0.4 MG/1 ML VIAL/CARP IV STA (12:32)
--- NOTE | 2019-09-23 12:34 | XRay Report ---
XR chest 1V portable HISTORY: 83 years-old Female s/p bronch status post bronchoscopy. COMPARISON: Chest CT and chest radiograph 09/22/2019 TECHNIQUE: Portable AP view of the chest FINDINGS: Limited exam secondary to patient positioning. There is near complete opacification of the left hemit horax redemonstrated secondary to left upper lobe collapse and left lower lobe opacities. No postproc edural pneumothorax identified. Unchanged left pleural effusion with left perihilar opacity. Chronic interstitial coarsening. Patchy and linear right lung base opacities are have mildly progressed. Dege nerative changes of the shoulders and spine. Stimulator lead is again noted projecting over the midth oracic spine. Multiple healed remote left-sided rib fractures. IMPRESSION: 1. Near complete opacification of the left hemithorax redemonstrated secondary to left upper lobe col lapse and left lower lobe opacities. 2. No pneumothorax. 3. Left perihilar opacities redemonstrated, better evaluated on CT of the chest from 09/22/2019. 4. Right lung base opacities have mildly progressed suggestive of admixture of atelectasis with pneum onitis. ACT 112: Negative or not required by law. The above report was generated using voice recognition software. It may contain grammatical, syntax o r spelling errors. Electronically signed by: Ke Reina M.D. 09/23/2019 12:33 PM
[2019-09-23] MEDS ORDERED: FLUMAZENIL 0.1 MG/1 ML 10 ML VIAL IV STA ×3 (12:36→13:04)
[2019-09-23] MEDS ORDERED: dilTIAZem HCl 5 MG/ML 5 ML VIAL IV STA (12:46)
[2019-09-23] MEDS ORDERED: STAT IV Infusion **Titration per Protocol STA ×2 (12:46→13:53)
--- NOTE | 2019-09-23 12:50 | Communication Note ---
Date of Service: September 23, 2019 Pulmonary addendum: Patient got total of 8 mg of midazolam and 100 MCG of fentanyl during the bronchoscopy. At the end of the bronchoscopy patient did develop A. fib with RVR. She has a history of A. fib in the past not on anticoagulation because history of subdural hematoma. Patient was given total of 7.5 mg of metoprolol. Heart rate is still in the 130s. Patient was given 0.2 mg of flumazenil and 0.4 mg of Narcan to reverse the sedation. We will start the patient on diltiazem drip. Based on how the patient does in the next 15-20 minutes will decide if the patient will benefit from being in the ICU monitored. Coding Level of Care Code None
[2019-09-23] MEDS ORDERED: dilTIAZem HCL 125 MG in DEXTROSE 5% 100 ML IV SCH (13:00)
[2019-09-23] MEDS ORDERED: RAPID SEQUENCE INDUCTION BAG ONE (13:08)
[2019-09-23] MEDS ORDERED: FENTANYL BOLUS FROM BAG IV PRN (13:53)
[2019-09-23] MEDS ORDERED: PROPOFOL BOLUS FROM BAG IV PRN (13:53)
--- NOTE | 2019-09-23 13:53 | Procedure Note ---
Procedure Note Date of Service September 23, 2019 INTUBATION PROCEDURE NOTE: Attending: Dr Teresa Jimenez MD Patient was evaluated and plan to intubate was made for respiratory distress. Sedative agent used: 10 mg etomidate, 100 mg lidocaine Paralysis agent used: Succinylcholine 50 mg Emergent consent was implied given patients rapidly declining clinical status and need for airway protection. The patient was prepared in the appropriate fashion. The patient was easily pre-oxygenated by using [id number] ventilation. With help ofGlidoscope grade 1 vocal cords were visualized and 7.5 Slovenian ETT was introduced on first attempt to 22 cm at the lip. The stylette was removed and balloon was inflated with 10mL of air. Appropriate Colorimetric change was appreciated for at least 10 breaths. Bilateral chest rise and breath sounds were appreciated without air sounds in the epigastrium. Patient tolerated the procedure well and there were no immediate complications. Chest Xray to follow for confirming placement. Coding CPT Codes Resuscitation - Resuscitation: 90484 Endotracheal Intubation, emergency ([id number]) [facility] [place] Procedure Codes (Charges) Resuscitation Resuscitation: 94525 Endotracheal Intubation, emergency
[2019-09-23] MEDS ORDERED: PROPOFOL IV EMULSION 10 MG/ML 100 ML VIAL IV ONE (13:57)
--- NOTE | 2019-09-23 13:58 | Critical Care Consultation ---
Date of Consultation September 23, 2019 Assessment & Plan (1) Mass of left lung: --Vent dependent respiratory failure with acute hypoxia and hypercapnia Multifactorial secondary to A. fib with RVR on top of sedation and underlying lung malignancy Continue with ventilatory support Keep RASS -1 Daily sedation holidays and SBT's Chlorhexidine mouthwash --Left upper lobe mass with mediastinal lymphadenopathy with postobstructive pneumonia In a patient who is a smoker High likelihood of malignancy Status post EBUS 09/23/2019, preliminary diagnosis of small cell cancer Follow-up final path report Continue with antibiotics. Follow-up septic work-up --Left-sided pleural effusion We will address this later. --A. fib with RVR Start the patient on Cardizem drip if not rate controlled after intubation. Not on anticoagulation with history of subdural hematoma in the past. --Altered mental status Likely secondary to under the effect of conscious sedation If the patient does not respond after intubation will think about CT head without contrast --Elevated BNP Echo 07/2017 showed ejection fraction 55 to 60% Continue with diuretics Keep euvolemic to negative balance --COPD Not in exacerbation Continue with inhaled bronchodilators. --History of back surgery On chronic gabapentin --Erythrocytosis Likely secondary from malignancy on top of infection Monitor --Prophylaxis DVT: Lovenox GI: Pantoprazole All the events and current condition of the patient were discussed with daughter on the phone. She understands and wants to be kept updated. Patient is full code. Later after intubation patient's A. fib with RVR converted into sinus rhythm, patient was alert answering question moving all the extremities appropriately, asking to take the tube out. I have personally spent 65 minutes of critical care time in the direct manageme nt of this patient. This is a life/limb threatening event. This includes time spent evaluating yoselin ent, direct bedside care, chart review, placing orders, interpretation of diagnostic studies, discussion with consultants, patient, and family members, as well as other required patient management activities. This time is exclusive of all separately billable procedures, and teaching time and separate from and in addition to any other critical care service time. Please note the above document was generated using voice recognition software. It may contain grammatical, syntax or spelling errors. Please note the above document was generated using voice recognition software. It may contain grammatical, syntax or spelling errors. (2) COPD (chronic obstructive pulmonary disease): (3) History of atrial fibrillation: History of Present Illness Attending Physician: Al Mi DO History of Present Illness 83-year-old female with past medical history of COPD, subdural hematoma, A. fib not on anticoagulation, coronary artery disease status post stents in 2016 was admitted to hospital because of finding on the chest x-ray left upper lobe pneumonia with mediastinal mass. Patient underwent bronchoscopy 09/23/2019 by me. At the end of bronchoscopy p atient went into A. fib with RVR which resulted in a portion of the final forceps biopsy. Patient had gotten total of 8 mg of midazolam and 100 MCG of fentanyl. Patient was given a total of 7.5 mg of metoprolol IV push but it did not break her A. fib. Patient was breathing heavily and not responding to commands even after giving 0.6 of flumazenil and 0.4 of Narcan. Given that the patient was hypoxic, breathing heavily using necessary muscles and in A. fib with RVR. Plan was made to intubate the patient. Patient's daughter was called prior to intubation and informed about the situation. She did say that when patient had spinal surgery she had similar episode with sedation. Social history: Approximately 46-82-psaq-year history quit 15 years ago, no illicit drug use, no alcohol use Has a dog at home which is not allergic. Allergies Allergy/AdvReac Type Severity Reaction Status Date / Time diclofenac Allergy Verified 09/21/19 10:57 dicloxacillin Allergy Verified 09/21/19 10:57 levofloxacin Allergy Verified 09/21/19 10:57 naproxen Allergy Verified 09/21/19 10:57 Penicillins Allergy Verified 09/21/19 10:57 risedronate sodium Allergy Verified 09/21/19 10:57 [From Actonel] Home Medications Home Medications Medication Instructions Recorded Confirmed Type omeprazole 40 mg capsule,delayed 40 mg PO DAILY #90 cap 10/22/18 09/22/19 Rx release Ca 600 mg-D3 800 unit-magnes 40 1 tab PO BID #180 tab 11/13/18 09/22/19 Rx wd-pnof-wle-kevin-boron chewable tablet aspirin 81 mg tablet,delayed 81 mg PO DAILY #90 tab 11/13/18 09/22/19 Rx release furosemide 40 mg tablet 40 mg PO DAILY #90 tab 11/13/18 09/22/19 Rx metoprolol succinate 25 mg 12.5 mg PO DAILY #45 tab 11/13/18 09/22/19 Rx tablet,extended release 24 hr multivitamin 1 tab PO DAILY #90 tab 11/13/18 09/22/19 Rx nitroglycerin 0.4 mg sublingual 0.4 mg SL Q5M #30 tab 11/13/18 09/22/19 Rx tablet rosuvastatin 20 mg tablet 20 mg PO HS tab 02/12/19 09/22/19 History Bifidobacterium infantis 4 mg 4 mg PO DAILY #30 cap 04/20/19 09/22/19 Rx capsule acetaminophen 325 mg capsule 650 mg PO Q4H PRN #60 cap 04/20/19 09/22/19 Rx chlorhexidine gluconate 0.12 % 15 ml BUCCAL BID #1500 ml 04/20/19 09/22/19 Rx mouthwash cholecalciferol (vitamin D3) 50 2,000 units PO BID #30 tab 04/20/19 09/22/19 Rx mcg (2,000 unit) tablet tiotropium bromide 18 mcg capsule 1 cap INH DAILY #20 puffs 05/06/19 09/22/19 Rx with inhalation device tizanidine 2 mg capsule 1 mg PO TID PRN #90 cap 05/21/19 09/22/19 Rx hydrocodone 5 mg-acetaminophen 325 1 tab PO Q6H PRN #120 tab 06/23/19 09/22/19 Rx mg tablet gabapentin 300 mg capsule 300 mg PO QID #120 cap 08/16/19 09/22/19 Rx sertraline 25 mg tablet 25 mg PO DAILY #90 tab 08/16/19 09/22/19 Rx gabapentin 100 mg capsule 100 mg PO HS #90 cap 09/01/19 09/22/19 Rx doxycycline hyclate 100 mg capsule 100 mg PO BID #20 cap 09/21/19 09/22/19 Rx prednisone 20 mg tablet 20 mg PO DAILY #5 tab 09/21/19 09/22/19 Rx albuterol sulfate 2 puffs INHALATION Q4H PRN 09/22/19 09/22/19 History albuterol sulfate 2.5 mg INHALATION QID 09/22/19 09/22/19 History budesonide 1 mg INH QID 09/22/19 09/22/19 History Patient History Medical History Acid reflux (Chronic) Acquired lymphocytosis (Chronic) Anemia (Chronic) Arthritis (Chronic) CAD (coronary artery disease) (Chronic) COPD exacerbation (Chronic) History of atrial fibrillation (Chronic) History of KS (myocardial infarction) (Chronic) History of TIA (transient ischemic attack) (Chronic) Hyperlipidemia (Chronic) Lumbar disc disease (Chronic) 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) Vitamin D deficiency (Chronic) Surgical History History of appendectomy History of cataract surgery History of cholecystectomy History of inguinal hernia repair History of splenectomy Family History Mother Hypertension Brother Gallbladder disease Denies family history of Ovarian cancer Prostate cancer Myocardial infarction Breast cancer Colorectal cancer Social History Preferred Language: Micronesian Communication Ability: Unable Visual Impairment: Limited Hearing Ability: Normal Email Marketing Executive Required: No Beliefs That Will Affect Care: None marital status: Current Living Situation: Alone current occupational status: retired Other Information That Helps Us Care for You: No Feels Safe at Home: Yes Safety Concerns: Feels Safe At This Time Smoking Status: Former smoker Tobacco Type: cigarettes ; Age Started Using Tobacco: 20 ; Age Quit Using Tobacco: 71 ; packs per day: 0.25 ; Second Hand Exposure: No ; Hx Alcohol Use: No Hx Substance Use: Yes substance use type: does not use Substance Use Type Other:: Hydrocodone-Acetaminophen Last Used Substance: Unknown Childhood Exposure to Second-Hand Smoke: No caffeine: Yes (tea and coffee) Dental Care, Regularly: Yes Physical Activity Frequency: Daily Seatbelt Use: always Sunscreen Use: Yes Do you think of yourself as: straight/heterosexual Review of Systems Review of Systems: Unobtainable due to cognitive status Physical Exam Physical Exam: Constitutional: In respiratory distress HEENT: PERRLA, arcus senilis bilaterally Respiratory system: Decreased air entry on the left side, no wheeze, no rhonchi, positive crackles left lower lobe CVS: S1-S2 positive, no murmurs or gallops, irregular rhythm, tachycardia Abdomen: Soft, nontender, nondistended, positive bowel sounds x4 Extremities: +2 pulses bilaterally radialis/ dorsalis pedis, no cyanosis, no edema, weak left upper extremity Neuro: Restless Psych: Unable to assess G/U: Positive [place] Skin: no rashes, warm and dry Lymphatic: no cervical or axillary lymphadenopathy Results & Data Results & Data ([facility]) Vital Signs (Past 12 Hours) Vital Signs Temp Pulse Pulse Resp BP BP Pulse Ox 09/23/19 13:10 130 H 18 162/86 H 94 09/23/19 13:05 145 H 18 149/130 H 94 09/23/19 13:00 144 H 18 162/78 H 93 09/23/19 12:55 135 H 18 138/102 H 93 09/23/19 12:50 156 H 18 166/118 H 96 09/23/19 12:45 147 H 18 154/109 H 97 09/23/19 12:40 157 H 14 164/115 H 96 09/23/19 12:36 113 H 16 141/83 H 95 09/23/19 12:35 113 H 16 141/83 H 95 09/23/19 12:30 113 H 16 114/97 92 09/23/19 12:25 119 H 16 171/106 H 94 09/23/19 12:21 151 H 171/106 H 09/23/19 12:20 151 H 16 151/133 H 97 09/23/19 12:15 155 H 16 179/94 H 164 H 09/23/19 12:10 127 H 16 142/94 H 144 H 09/23/19 12:05 108 H 14 126/83 93 09/23/19 12:00 108 H 14 93/72 L 95 09/23/19 11:55 124 H 14 92/64 L 96 09/23/19 11:50 117 H 14 127/73 97 09/23/19 11:47 153 H 111/87 09/23/19 11:45 145 H 14 81/71 L 96 09/23/19 11:40 128 H 14 111/87 91 09/23/19 11:35 124 H 14 114/65 90 09/23/19 11:30 145 H 12 122/84 89 L 09/23/19 11:25 148 H 12 117/79 90 09/23/19 11:20 148 H 12 147/93 H 89 L 09/23/19 11:15 109 H 12 156/130 H 86 L 09/23/19 11:10 101 H 14 146/103 H 88 L 09/23/19 11:05 104 H 12 159/75 H 90 09/23/19 11:00 89 12 138/67 88 L 09/23/19 10:55 96 H 14 136/78 88 L 09/23/19 10:50 90 14 116/65 96 09/23/19 10:45 78 14 132/63 98 09/23/19 10:30 80 14 138/74 99 09/23/19 10:25 87 14 129/88 100 09/23/19 07:26 36.6 C 76 18 136/72 96 09/23/19 07:16 83 09/23/19 07:11 81 18 96 09/23/19 03:01 36.8 C 82 20 134/68 92 09/23/19 02:18 81 09/22/19 17:32 09/22/19 22:59 Coding Level of Care Code Critical Care 1st 30-74 mins Diagnoses Mass of left lung R91.8 COPD (chronic obstructive pulmonary disease) J44.9 History of atrial fibrillation Z86.79 Time Spent (min) 65
[2019-09-23] MEDS ORDERED: fentaNYL DRIP 1,250 MCG/250 ML BAG IV SCH (14:00)
[2019-09-23] MEDS: UMECLIDINIUM BROMIDE 62.5MCG/BLISTER 7 PUFFS/INHALER INH SCH (14:05)
[2019-09-23] MEDS: PANTOprazole 40 MG TAB PO SCH (14:05)
[2019-09-23] MEDS: GABAPENTIN 300 MG CAP PO SCH ×4 (14:05→21:56)
[2019-09-23 14:26] LABS: iSTAT Allen Test Pass; iSTAT Arterial Blood Gas HCO3 28 meg/L (19-24); iSTAT Arterial Blood Gas pCO2 56 mmHg (35-46); iSTAT Arterial Blood Gas pH 7.31 (7.35-7.45); iSTAT Arterial Blood Gas pO2 276 mmHg (80-95); iSTAT Carbon Dioxide 30 mmol/L (24-31); iSTAT FiO2 100 %; iSTAT Site R Radial
--- NOTE | 2019-09-23 14:26 | XRay Report ---
XR chest 1V portable HISTORY: 83 years-old Female s/p intubation acute respiratory failure COMPARISON: Chest radiograph 09/23/2019, chest CT 09/22/2019 TECHNIQUE: Portable AP view of the chest FINDINGS: Endotracheal tube overlies the midline, 3.6 cm superior to the taina. Enteric tube courses below the diaphragm outside the [id number].There is near complete opacification of the left hemithorax rede monstrated secondary to left upper lobe collapse and left lower lobe opacities. No postprocedural pne umothorax identified. Unchanged left pleural effusion with left perihilar opacity. Chronic interstiti al coarsening. Progressively worsened mixed interstitial and alveolar opacities throughout the right lung. Degenerative changes of the shoulders and spine. Stimulator lead is again noted projecting over the midthoracic spine. Multiple healed remote left-sided rib fractures. Healed remote right-sided cl avicular fracture. IMPRESSION: 1. Endotracheal tube terminates 3.6 cm superior to the taina. 2. Enteric tube courses below the diaphragm outside the [id number]. 3. Left upper lobe collapse with left lower lobe opacities redemonstrated. 4. Mixed interstitial and alveolar opacities of the right lung have progressively worsened from the s tudy conducted approximately 2 hours earlier suggestive of asymmetric pulmonary edema versus aspirati on pneumonitis. ACT 112: Negative or not required by law. The above report was generated using voice recognition software. It may contain grammatical, syntax o r spelling errors. Electronically signed by: Ke Reina M.D. 09/23/2019 2:24 PM
[2019-09-23] MEDS ORDERED: ETOMIDATE 2 MG/ML 20 ML VIAL IV ONE (15:23)
[2019-09-23] MEDS ORDERED: SUCCINYLCHOLINE 100MG/5ML SYR IV ONE (15:23)
[2019-09-23] MEDS ORDERED: LIDOCAINE 2% 20 MG/ML 5 ML SYR IV ONE (15:23)
[2019-09-23] MEDS: METOPROLOL SUCC 25MG EXT REL TAB PO SCH (16:21)
[2019-09-23] MEDS: SERTRALINE HCL 50 MG TABLET PO SCH (16:21)
[2019-09-23] MEDS ORDERED: FUROSEMIDE 20 MG in SYRINGE 0 ML IV ONE (17:30)
--- NOTE | 2019-09-23 17:44 | Hospitalist Progress Note ---
Date of Service September 23, 2019 Assessment & Plan (1) Mass of left lun yo F with PMH Afib, CAD s/p stent placement x2, COPD, HLD, lumbar disc disease admitted to the hospital for hypoxia secondary to a new left lung mass found on CXR and CT Chest. # Hypoxia secondary to new Left Lung Mass compressing left upper lobe bronchus - CT Chest: 1. Large left hilar and mediastinal mass measuring at least 5 cm with secondary occlusion of the left upper lobe bronchus and secondary left upper lobe consolidation/collapse 2. Pathologic mediastinal lymphadenopathy including a 24 mm precarinal lymph node, and 27 mm prevascular lymph node 3. Xhjps-vk-emqpsuat left pleural effusion - Pulmonary / fashion photographer consulted, s/p bronch with mass visualized, see related notes - appreciate ongoing management. - Currently intubated, planning for extubation as soon as tomorrow. - heme onc to follow upon discharge. # AFIB w RVR - remote h/o such - on diltiazem drip, titrate per protocol # Hypokalemia - repleting - with hx of CAD and stent placement, goal of K 3.5-4 # Elevated BNP - no hx heart failure; per cardiology note, ECHO in 07/2017 showed EF 55-59% with hypo to a-kinetic basal inferior and basal inferoseptal segments - TTE shows normal EF, moderate MR. # COPD - continued budesonide inhaler # CAD s/p stent placement x2 - continued metoprolol succ 12.5 daily - continued ASA 81, rosuvastatin 20 # GERD - continued Pantoprazole 40 daily DVT ppx: lovenox FEN/GI: NPO, IV NS @ 92ml/hr Code Status: Full Code Dispo: ICU (2) Dyspnea: (3) Lumbar disc disease: (4) Hyperlipidemia: (5) History of TIA (transient ischemic attack): (6) History of atrial fibrillation: (7) CAD (coronary artery disease): (8) COPD (chronic obstructive pulmonary disease): Admission and Anticipated Discharge Date Admission Date: September 22, 2019 Supervising Physician Co-Signing Physician Notes I personally examined the patient and verified all valle points of history and exam, discussed case, and agree with decision making with Dr Armenta. ventilated, sedated. d/w pulmonary. d/w oncology as well - given that they are unable to initiate anything without tissue, asked that consult be as outpt after bx back - which is quite reasonable. no HPI or ROS obtainable from pt gen ventilated sedated, appearing in nad. hypoxia - due to mass - bronch completed, await pathology, continue vent support for now related to respiratory failure, otherwise as above and as per critical care Subjective Discussed with fashion photographer (see related notes) -- during bronchoscopy went in afib with RVR (which pt has h/o ) and then required support and so [facility] ventilation was begun. Upon my examination she is intubated in the ICU. Per nursing, family was updated. I did try to reach pt's POA on file, left VM. Review of Systems Review of Systems: Unobtainable due to endotracheal tube Physical Exam Physical Exam: Vitals noted and reviewed, as above GENERAL: no acute distress. inubated. HEAD: normocephalic atraumatic ENT: sclerae normal, trachea midline. Inutubated. RESP: normal work of breathing CV: afib with rvr ABDOMEN: nondistended SKIN: no rashes or jaundice PSYCH: appropriate mood and affect Results & Data Results & Data ([facility]) Vital Signs (Past 12 Hours) Vital Signs Temp Pulse Pulse Resp BP BP Pulse Ox 09/23/19 15:59 65 109/61 99 09/23/19 15:25 72 28 H 100 09/23/19 15:00 76 96/54 L 100 09/23/19 14:29 77 99/56 L 09/23/19 13:53 103 H 28 H 100 09/23/19 13:36 113 H 79/55 L 09/23/19 13:28 136 H 24 136/90 91 09/23/19 13:10 130 H 18 162/86 H 94 09/23/19 13:05 145 H 18 149/130 H 94 09/23/19 13:00 144 H 18 162/78 H 93 09/23/19 12:55 135 H 18 138/102 H 93 09/23/19 12:50 156 H 18 166/118 H 96 09/23/19 12:45 147 H 18 154/109 H 97 09/23/19 12:40 157 H 14 164/115 H 96 09/23/19 12:36 113 H 16 141/83 H 95 09/23/19 12:35 113 H 16 141/83 H 95 09/23/19 12:30 113 H 16 114/97 92 09/23/19 12:25 119 H 16 171/106 H 94 09/23/19 12:21 151 H 171/106 H 09/23/19 12:20 151 H 16 151/133 H 97 09/23/19 12:15 155 H 16 179/94 H 164 H 09/23/19 12:10 127 H 16 142/94 H 144 H 09/23/19 12:05 108 H 14 126/83 93 09/23/19 12:00 108 H 14 93/72 L 95 09/23/19 11:55 124 H 14 92/64 L 96 09/23/19 11:50 117 H 14 127/73 97 09/23/19 11:47 153 H 111/87 09/23/19 11:45 145 H 14 81/71 L 96 09/23/19 11:40 128 H 14 111/87 91 09/23/19 11:35 124 H 14 114/65 90 09/23/19 11:30 145 H 12 122/84 89 L 09/23/19 11:25 148 H 12 117/79 90 09/23/19 11:20 148 H 12 147/93 H 89 L 09/23/19 11:15 109 H 12 156/130 H 86 L 09/23/19 11:10 101 H 14 146/103 H 88 L 09/23/19 11:05 104 H 12 159/75 H 90 09/23/19 11:00 89 12 138/67 88 L 09/23/19 10:55 96 H 14 136/78 88 L 09/23/19 10:50 90 14 116/65 96 09/23/19 10:45 78 14 132/63 98 09/23/19 10:30 80 14 138/74 99 09/23/19 10:25 87 14 129/88 100 09/23/19 07:26 36.6 C 76 18 136/72 96 09/23/19 07:16 83 09/23/19 07:11 81 18 96 Laboratory Results 09/23/19 09/23/19 09/23/19 Range/Units Unknown 17:48 14:13 Peripher Smr Path Cons Sample Site R Radial POC pH 7.31 L (7.35-7.45) POC pCO2 56 H (35-46) mmHg POC pO2 276 H (80-95) mmHg POC HCO3 28 H (19-24) haresh/L POC Total CO2 30 (24-31) mmol/L POC Base Excess 2.0 H (-9-1.8) haresh/L POC ABG O2 Sat 100.0 H (90-95) % Gucci Test Pass O2 Delivery Device Ventilator POC O2 Rate 28 Minute Ventilation 11 POC FiO2 100 % Tidal Volume 400 PEEP 8 Sodium (136-145) mmol/L Potassium (3.5-5.1) mmol/L Chloride (98-107) mmol/L Carbon Dioxide (21-32) mmol/L Anion Gap (3-11) BUN (7-18) mg/dl Creatinine (0.6-1.2) mg/dl Est Cr Clr Drug Dosing ml/min Est GFR ( Amer) Est GFR (Non-Af Amer) BUN/Creatinine Ratio (10-20) Glucose (70-99) mg/dl POC Glucose 113 H (70-99) mg/dl Calcium (8.5-10.1) mg/dl Urine Color Urine Appearance (Clear) Urine pH (4.5-7.5) Ur Specific [place] (1.000-1.030) Urine Protein (Negative) Urine Glucose (UA) (Negative) Urine Ketones (Negative) Urine Blood (Negative) Urine Nitrite (Negative) Urine Bilirubin (Negative) Urine Urobilinogen (Negative) Ur Leukocyte Esterase (Negative) Fluid Neutrophils % Cancelled Fluid Lymphocytes % Cancelled Fluid Eosinophils % Cancelled Fluid Basophils % Cancelled Fl Monocyt/Macrophag % Cancelled Fluid Other Cells % Cancelled Fluid Epithelial Cells Cancelled Nasal Screen MRSA (PCR) (Negative) COVID-19 PCR (Negative) Flow Cytometry Comment 09/23/19 09/23/19 09/23/19 Range/Units 12:55 11:10 06:57 Peripher Smr Path Cons Sample Site POC pH (7.35-7.45) POC pCO2 (35-46) mmHg POC pO2 (80-95) mmHg POC HCO3 (19-24) haresh/L POC Total CO2 (24-31) mmol/L POC Base Excess (-9-1.8) haresh/L POC ABG O2 Sat (90-95) % Gucci Test O2 Delivery Device POC O2 Rate Minute Ventilation POC FiO2 % Tidal Volume PEEP Sodium (136-145) mmol/L Potassium (3.5-5.1) mmol/L Chloride (98-107) mmol/L Carbon Dioxide (21-32) mmol/L Anion Gap (3-11) BUN (7-18) mg/dl Creatinine (0.6-1.2) mg/dl Est Cr Clr Drug Dosing ml/min Est GFR ( Amer) Est GFR (Non-Af Amer) BUN/Creatinine Ratio (10-20) Glucose (70-99) mg/dl POC Glucose 150 H (70-99) mg/dl Calcium (8.5-10.1) mg/dl Urine Color Urine Appearance (Clear) Urine pH (4.5-7.5) Ur Specific [place] (1.000-1.030) Urine Protein (Negative) Urine Glucose (UA) (Negative) Urine Ketones (Negative) Urine Blood (Negative) Urine Nitrite (Negative) Urine Bilirubin (Negative) Urine Urobilinogen (Negative) Ur Leukocyte Esterase (Negative) Fluid Neutrophils % Fluid Lymphocytes % Fluid Eosinophils % Fluid Basophils % Fl Monocyt/Macrophag % Fluid Other Cells % Fluid Epithelial Cells Nasal Screen MRSA (PCR) (Negative) COVID-19 PCR (Negative) Flow Cytometry Comment Pending 09/22/19 09/22/19 09/22/19 Range/Units 22:59 21:55 19:37 Peripher Smr Path Cons Sample Site POC pH (7.35-7.45) POC pCO2 (35-46) mmHg POC pO2 (80-95) mmHg POC HCO3 (19-24) haresh/L POC Total CO2 (24-31) mmol/L POC Base Excess (-9-1.8) haresh/L POC ABG O2 Sat (90-95) % Gucci Test O2 Delivery Device POC O2 Rate Minute Ventilation POC FiO2 % Tidal Volume PEEP Sodium 136 (136-145) mmol/L Potassium 3.7 D (3.5-5.1) mmol/L Chloride 100 (98-107) mmol/L Carbon Dioxide 31 (21-32) mmol/L Anion Gap 5.0 (3-11) BUN 14 (7-18) mg/dl Creatinine 0.59 L (0.6-1.2) mg/dl Est Cr Clr Drug Dosing 58.1 ml/min Est GFR ( Amer) 98.9 Est GFR (Non-Af Amer) 85.4 BUN/Creatinine Ratio 24.1 H (10-20) Glucose 104 H (70-99) mg/dl POC Glucose (70-99) mg/dl Calcium 8.7 (8.5-10.1) mg/dl Urine Color Yellow Urine Appearance Clear (Clear) Urine pH 5.0 (4.5-7.5) Ur Specific [place] > 1.045 H (1.000-1.030) Urine Protein Negative (Negative) Urine Glucose (UA) Negative (Negative) Urine Ketones Negative (Negative) Urine Blood Negative (Negative) Urine Nitrite Negative (Negative) Urine Bilirubin Negative (Negative) Urine Urobilinogen Negative (Negative) Ur Leukocyte Esterase Negative (Negative) Fluid Neutrophils % Fluid Lymphocytes % Fluid Eosinophils % Fluid Basophils % Fl Monocyt/Macrophag % Fluid Other Cells % Fluid Epithelial Cells Nasal Screen MRSA (PCR) Negative (Negative) COVID-19 PCR (Negative) Flow Cytometry Comment 09/22/19 Range/Units 17:31 Peripher Smr Path Cons Sample Site POC pH (7.35-7.45) POC pCO2 (35-46) mmHg POC pO2 (80-95) mmHg POC HCO3 (19-24) haresh/L POC Total CO2 (24-31) mmol/L POC Base Excess (-9-1.8) haresh/L POC ABG O2 Sat (90-95) % Gucci Test O2 Delivery Device POC O2 Rate Minute Ventilation POC FiO2 % Tidal Volume PEEP Sodium (136-145) mmol/L Potassium (3.5-5.1) mmol/L Chloride (98-107) mmol/L Carbon Dioxide (21-32) mmol/L Anion Gap (3-11) BUN (7-18) mg/dl Creatinine (0.6-1.2) mg/dl Est Cr Clr Drug Dosing ml/min Est GFR ( Amer) Est GFR (Non-Af Amer) BUN/Creatinine Ratio (10-20) Glucose (70-99) mg/dl POC Glucose (70-99) mg/dl Calcium (8.5-10.1) mg/dl Urine Color Urine Appearance (Clear) Urine pH (4.5-7.5) Ur Specific [place] (1.000-1.030) Urine Protein (Negative) Urine Glucose (UA) (Negative) Urine Ketones (Negative) Urine Blood (Negative) Urine Nitrite (Negative) Urine Bilirubin (Negative) Urine Urobilinogen (Negative) Ur Leukocyte Esterase (Negative) Fluid Neutrophils % Fluid Lymphocytes % Fluid Eosinophils % Fluid Basophils % Fl Monocyt/Macrophag % Fluid Other Cells % Fluid Epithelial Cells Nasal Screen MRSA (PCR) (Negative) COVID-19 PCR NEGATIVE (Negative) Flow Cytometry Comment Medications Administered Current Inpatient Medications Acetaminophen (Tylenol) 650 mg PO Q4H PRN PRN Reason: Pain or Fever Stop: 10/22/19 22:53 Aspirin (Ecotrin Ectab) 81 mg PO DAILY [facility] Stop: 10/23/19 08:59 Last Admin: 09/23/19 10:56 Dose: Not Given Documented by: Enoxaparin Sodium (Lovenox) 40 mg SQ Q24H BLAS Stop: 10/23/19 08:59 Last Admin: 09/23/19 10:56 Dose: Not Given Documented by: Fentanyl Citrate (Fentanyl Bolus From Bag) 50 mcg IV Q60M PRN PRN Reason: Pain or Agitation Stop: 10/07/19 13:52 Furosemide (Lasix) 40 mg PO DAILY [facility] Stop: 10/23/19 08:59 Last Admin: 09/23/19 16:31 Dose: Not Given Documented by: Gabapentin (Neurontin) 300 mg PO QID [facility] Stop: 10/22/19 22:46 Last Admin: 09/23/19 17:58 Dose: 300 mg Documented by: Gabapentin (Neurontin) 100 mg PO HS [facility] Stop: 10/22/19 22:46 Last Admin: 09/22/19 23:40 Dose: 100 mg Documented by: Aztreonam 2,000 mg/ Dextrose 110 mls @ 100 mls/hr IV Q8H [facility]; Protocol Stop: 09/30/19 00:00 Last Admin: 09/23/19 18:02 Dose: 100 mls/hr Documented by: Sodium Chloride (Nss 1000ml) 1,000 mls @ 92 mls/hr IV .[id number] [facility] Stop: 10/23/19 01:14 Last Admin: 09/23/19 14:06 Dose: 92 mls/hr Documented by: Diltiazem HCl 125 mg/ Dextrose 125 mls @ 5 mls/hr IV .Q24H [facility]; Protocol Stop: 10/23/19 12:59 Last Admin: 09/23/19 14:07 Dose: Not Given Documented by: Fentanyl Citrate (Fentanyl Drip) 1,250 mcg in 250 mls @ 5 mls/hr IV .Q24H [facility]; Protocol Stop: 10/07/19 13:59 Last Titration: 09/23/19 14:33 Dose: 25 mcg/hr, 5 mls/hr Documented by: Propofol (Diprivan) 1,000 mg in 100 mls @ 6.432 mls/hr IV .[id number] [facility]; Protocol Stop: 09/26/19 13:59 Ioversol (Optiray 320 100ml) 94 ml IV ONCE PRN PRN Reason: Interaction Checking Stop: 09/26/19 18:58 Last Admin: 09/22/19 19:00 Dose: 94 ml Documented by: Metoprolol Succinate (Toprol Xl) 12.5 mg PO DAILY [facility] Stop: 10/23/19 08:59 Last Admin: 09/23/19 16:21 Dose: Not Given Documented by: Metoprolol Tartrate (Lopressor) 5 mg IV ONCE PRN PRN Reason: Tachycardia Stop: 10/23/19 12:21 Last Admin: 09/23/19 12:21 Dose: 5 mg Documented by: Pantoprazole Sodium (Protonix) 40 mg PO DAILY [facility] Stop: 10/23/19 08:59 Last Admin: 09/23/19 14:05 Dose: Not Given Documented by: Propofol (Diprivan Bolus From Bag) 20 mg IV Q5M PRN PRN Reason: Sedation Stop: 09/26/19 13:52 Rosuvastatin Calcium (Crestor) 20 mg PO HS [facility] Stop: 10/22/19 22:46 Last Admin: 09/22/19 23:40 Dose: 20 mg Documented by: Sertraline HCl (Zoloft) 25 mg PO DAILY [facility] Stop: 10/23/19 08:59 Last Admin: 09/23/19 16:21 Dose: Not Given Documented by: Tizanidine HCl (Zanaflex) 1 mg PO TID PRN PRN Reason: muscle spasticity Stop: 10/22/19 22:46 Umeclidinium [place] (Incruse Ellipta) 1 puffs INH DAILY [facility] Stop: 10/23/19 08:59 Last Admin: 09/23/19 14:05 Dose: Not Given Documented by: Resident Activity Tracking Resident Involvement: Resident Care Provided Care Provided: Adult [facility] Medicine
--- NOTE | 2019-09-23 18:29 | Billing Data ---
Date of Service September 23, 2019 Coding Level of Care Code 76230 Subseq Hosp Care Lvl 1
--- NOTE | 2019-09-23 18:40 | XCELERA ---
[id number]
[2019-09-23] MEDS: ROSUVASTATIN CALCIUM 20 MG TAB PO SCH (21:53)
[2019-09-23] MEDS: GABAPENTIN 100 MG CAP PO SCH (21:56)
--- NOTE | 2019-09-23 22:15 | Electrocardiogram Report ---
Test Reason : Blood Pressure : / mmHG Vent. Rate : 068 BPM Atrial Rate : 068 BPM P-R Int : 192 ms QRS Dur : 082 ms QT Int : 412 ms P-R-T Axes : 076 077 -26 degrees QTc Int : 438 ms Sinus rhythm with occasional Premature ventricular complexes Low voltage QRS T wave abnormality, consider inferior ischemia Abnormal ECG No previous ECGs available Confirmed by Berhane Nath ([id number]) on 09/23/2019 10:15:18 PM Referred By: Rolo Ron Confirmed By:Berhane Nath
[2019-09-23] MEDS: propofoL 1,000 MG/100 ML VIAL IV SCH (22:34)
[2019-09-24] MEDS: AZTREONAM 2,000 MG in DEXTROSE 5% 100 ML IV SCH ×3 (03:45→18:03)
[2019-09-24 04:53] LABS: Basophils # (auto) 0.02 K/uL (0-0.2); Basophils % (auto) 0.1 %; Eosinophils # (auto) 0.01 K/uL (0-0.5); Eosinophils % (auto) 0.1 %; Hematocrit (blood only) 34.5 % (37-47); Hemoglobin 10.7 g/dL (12.0-16.0); Immature Granulocytes # (auto) 0.05 K/uL (0.00-0.02); Immature Granulocytes % (auto) 0.3 %; Lymphocytes # (auto) 2.13 K/uL (1.2-3.4); Lymphocytes % (auto) 12.7 %; Mean Corpuscular Hemoglobin 25.5 pg (25-34); Mean Corpuscular Volume 82.1 fL (80-100); Mean Platelet Volume 9.1 fL (7.4-10.4); Monocytes # (auto) 1.89 K/uL (0.11-0.59); Monocytes % (auto) 11.3 %; Neutrophils # (auto) 12.62 K/uL (1.4-6.5); Neutrophils % (auto) 75.5 %; Platelet Count 586 K/uL (130-400); RDW Coefficient of Variation 18.7 % (11.5-14.5); White Blood Count 16.72 K/uL (4.8-10.8)
[2019-09-24 05:42] LABS: iSTAT Allen Test Pass; iSTAT Arterial Blood Gas HCO3 25 meg/L (19-24); iSTAT Arterial Blood Gas pCO2 27 mmHg (35-46); iSTAT Arterial Blood Gas pH 7.57 (7.35-7.45); iSTAT Arterial Blood Gas pO2 56 mmHg (80-95); iSTAT Carbon Dioxide 25 mmol/L (24-31); iSTAT FiO2 30 %; iSTAT Site R Radial
[2019-09-24 05:46] LABS: BUN Creatinine Ratio 24.2 (10-20); Calcium 7.9 mg/dl (8.5-10.1); Creatinine Clr Calc Pharmacy 54.5 ml/min; Est GFR (African American) 96.8; Est GFR (Non-African American) 83.5; Magnesium 1.5 mg/dl (1.8-2.4); Phosphorus 2.1 mg/dl (2.5-4.9); Potassium 2.9 mmol/L (3.5-5.1)
[2019-09-24] MEDS ORDERED: POTASSIUM PHOS 3 MMOL/1 ML INFUSION IV STA (05:58)
[2019-09-24] MEDS ORDERED: MAGNESIUM SULFATE / D5W 1 GM/100 ML BAG IV ONE (05:59)
--- NOTE | 2019-09-24 06:14 | Electrocardiogram Report ---
Test Reason : Blood Pressure : / mmHG Vent. Rate : 132 BPM Atrial Rate : 308 BPM P-R Int : 000 ms QRS Dur : 074 ms QT Int : 264 ms P-R-T Axes : 000 103 -30 degrees QTc Int : 391 ms Poor data quality, interpretation may be adversely affected Atrial fibrillation with premature ventricular or aberrantly conducted complexes Rightward axis Low voltage QRS Abnormal ECG When compared with ECG of 22-Sep-2019 17:23, Atrial fibrillation has replaced Sinus rhythm Confirmed by Berhane Nath ([id number]) on 09/24/2019 6:14:35 AM Referred By: Rolo Ron Confirmed By:Berhane Nath
[2019-09-24] MEDS ORDERED: POTASSIUM PHOSPHATE 15 MMOL in SODIUM CHLORIDE 0.9% 250 ML IV ONE (06:15)
--- NOTE | 2019-09-24 06:15 | Electrocardiogram Report ---
Test Reason : Blood Pressure : / mmHG Vent. Rate : 136 BPM Atrial Rate : 127 BPM P-R Int : 000 ms QRS Dur : 076 ms QT Int : 292 ms P-R-T Axes : 000 101 -29 degrees QTc Int : 439 ms Atrial fibrillation with rapid ventricular response with premature ventricular or aberrantly conducte d complexes Rightward axis Low voltage QRS Nonspecific T wave abnormality Abnormal ECG When compared with ECG of 23-SEP-2019 12:32, No significant change Confirmed by Berhane Nath ([id number]) on 09/24/2019 6:15:06 AM Referred By: Rolo Ron Confirmed By:Berhane Nath
[2019-09-24] MEDS: POTASSIUM CHLORIDE / WTR 10 MEQ/100 ML PLCT IV SCH ×3 (06:20→09:25)
[2019-09-24] MEDS: SODIUM CHLORIDE 0.9% 1000ML 1,000 ML IV SCH (06:21)
--- NOTE | 2019-09-24 07:05 | XRay Report ---
XR chest 1V portable HISTORY: 83 years-old Female f/u acute respiratory failure COMPARISON: Chest radiograph 09/23/2019 TECHNIQUE: Portable AP view of the chest FINDINGS: Endotracheal tube overlies the midline, 3.7 cm superior to the taina. Enteric tube courses below the diaphragm outside the [id number]-yr-godp. Left upper lobe collapse and left lower lobe consolidation rede monstrated. No pneumothorax identified. Left greater than right pleural effusions. Chronic interstiti al coarsening. Decreased interstitial and alveolar opacities throughout the right lung. Degenerative changes of the shoulders and spine. Stimulator lead is again noted projecting over the midthoracic sp ine. Multiple healed remote left-sided rib fractures. Healed remote right-sided clavicular fracture. IMPRESSION: 1. Lines and tubes as above. 2. Mild to moderately improved aeration of the right lung with persistent mixed interstitial and alve olar opacities. 3. Left upper lobe collapse with left lower lobe consolidation redemonstrated. 4. Left greater than right pleural effusions. ACT 112: Negative or not required by law. The above report was generated using voice recognition software. It may contain grammatical, syntax o r spelling errors. Electronically signed by: Ke Reina M.D. 09/24/2019 7:04 AM
[2019-09-24] MEDS: propofoL 1,000 MG/100 ML VIAL IV SCH (07:31)
[2019-09-24] MEDS ORDERED: FUROSEMIDE 40 MG in SYRINGE 0 ML IV ONE (07:45)
[2019-09-24] MEDS: ASPIRIN 81 MG ECTAB PO SCH (09:25)
[2019-09-24] MEDS: GABAPENTIN 300 MG CAP PO SCH ×4 (09:26→19:33)
[2019-09-24] MEDS: METOPROLOL SUCC 25MG EXT REL TAB PO SCH (09:26)
[2019-09-24] MEDS: UMECLIDINIUM BROMIDE 62.5MCG/BLISTER 7 PUFFS/INHALER INH SCH (09:26)
[2019-09-24] MEDS: PANTOprazole 40 MG TAB PO SCH (09:26)
[2019-09-24] MEDS: SERTRALINE HCL 50 MG TABLET PO SCH (09:27)
[2019-09-24] MEDS ORDERED: VANCOMYCIN HCL 1,250 MG in SODIUM CHLORIDE 0.9% 250 ML IV ONE (09:45)
[2019-09-24] MEDS ORDERED: VANCOMYCIN CONSULT ACTIVE PRN (09:48)
--- NOTE | 2019-09-24 10:41 | Critical Care Progress Note ---
Date of Service September 24, 2019 Assessment & Plan (1) Mass of left lung: --Vent dependent respiratory failure with acute hypoxia and hypercapnia Multifactorial secondary to A. fib with RVR on top of sedation and underlying lung malignancy Continue with ventilatory support Keep RASS -1 Daily sedation holidays and SBT's Chlorhexidine mouthwash --Left upper lobe mass with mediastinal lymphadenopathy with postobstructive pneumonia In a patient who is a smoker High likelihood of malignancy Status post EBUS 09/23/2019, preliminary diagnosis of small cell cancer Follow-up final path report Continue with antibiotics. Follow-up septic work-up --Left-sided pleural effusion We will address this later. --Status post A. fib with RVR Converted to sinus status post extubation on 09/23/2019 Not on anticoagulation with history of subdural hematoma in the past. --Status post altered mental status Likely secondary to under the effect of conscious sedation Patient is moving all extremities and following commands. --Pulmonary hypertension Likely type III Echo 09/23/2019: EF 65%, RVSP 53 Continue with diuretics Keep euvolemic to negative balance --COPD Not in exacerbation Continue with inhaled bronchodilators. --History of back surgery On chronic gabapentin --Erythrocytosis Likely secondary from malignancy on top of infection Monitor --Hypokalemia and hypomagnesia being replaced --Prophylaxis DVT: Lovenox GI: Pantoprazole Plan: Patient doing well on pressure support on vent at the time of examination. Trial of extubation. Hold Lovenox for the time being to see if tapping the pleural fluid on the left side of the lung will help her breathing. I doubt this will be helpful given that this is likely secondary to the collapse of the left upper lobe. But given that she is in respiratory distress this could be given a try. We will discussed this with patient. Continue with Lasix 40 mg IV on a daily basis. strict in and out I have personally spent 38 minutes of critical care time in the direct management of this patient. This is a life/limb threatening event. This includes time spent evaluating patient, direct bedside care, chart review, placing orders, interpretation of diagnostic studies, discussion with consultants, patient, and family members, as well as other required patient management activities. This time is exclusive of all separately billable procedures, and teaching time and separate from and in addition to any other critical care service time. Please note the above document was generated using voice recognition software. It may contain grammatical, syntax or spelling errors. Please note the above document was generated using voice recognition software. It may contain grammatical, syntax or spelling errors. (2) COPD (chronic obstructive pulmonary disease): (3) History of atrial fibrillation: Admission and Anticipated Discharge Date Admission Date: September 22, 2019 Subjective Patient seen and examined at bedside. No acute distress, no adverse events overnight. Patient was on CPAP 12/8 at the time of examination getting 450 tidal volume. Pressure support was de-escalating to 7/5 and patient was getting tidal volumes of 350. Patient was RASS -1 following commands. Denied any complaints. Afebrile in the last 24 hours. Review of Systems Review of Systems: All systems reviewed & are unremarkable except as noted in HPI & below Physical Exam Physical Exam: Constitutional: No acute distress HEENT: PERRLA, arcus senilis bilaterally Respiratory system: Decreased air entry on the left side, no wheeze, no rhonchi, positive crackles left lower lobe CVS: S1-S2 positive, no murmurs or gallops Abdomen: Soft, nontender, nondistended, positive bowel sounds x4 Extremities: +2 pulses bilaterally radialis/ dorsalis pedis, no cyanosis, no edema Neuro: RASS -1, following commands, moves all her extremities Psych: Unable to assess G/U: Positive [place] Skin: no rashes, warm and dry Lymphatic: no cervical or axillary lymphadenopathy Results & Data Results & [facility] ([facility]) Vital Signs (Past 12 Hours) Vital Signs Pulse Resp BP Pulse Ox 09/24/19 08:16 89 27 H 95 09/24/19 06:00 89 95 09/24/19 05:44 81 17 92 09/24/19 05:43 75 130/67 93 09/24/19 05:13 73 132/72 91 09/24/19 05:00 73 94 09/24/19 04:43 72 125/71 93 09/24/19 04:13 82 119/70 94 09/24/19 04:00 81 94 09/24/19 03:47 88 122/75 93 09/24/19 03:43 79 122/75 93 09/24/19 03:13 77 119/74 94 09/24/19 03:00 78 93 09/24/19 02:57 82 28 H 93 09/24/19 02:43 83 117/70 93 09/24/19 02:13 81 127/84 95 09/24/19 02:00 83 92 09/24/19 01:43 80 113/62 92 09/24/19 01:13 80 105/60 92 09/24/19 01:00 80 92 09/24/19 00:43 78 107/62 92 09/24/19 00:13 78 106/62 92 09/24/19 00:00 81 92 09/23/19 23:43 78 98/59 L 92 09/23/19 23:13 89 93/61 L 92 09/23/19 23:02 86 28 H 92 09/23/19 23:00 84 92 09/23/19 22:43 88 93/59 L 93 09/24/19 04:24 09/24/19 04:24 Coding Level of Care Code Critical Care 1st 30-74 mins Diagnoses Mass of left lung R91.8 COPD (chronic obstructive pulmonary disease) J44.9 History of atrial fibrillation Z86.79 Time Spent (min) 38
--- NOTE | 2019-09-24 16:08 | Hospitalist Progress Note ---
Date of Service September 24, 2019 Assessment & Plan (1) Mass of left lung: highly likely malignant outpt oncology f/u (2) Dyspnea: with acute hypoxic respiratory failure - related to mass - improving, but suspect there will remain a portion of chronic respiratory failure - d/w pt too soon to tell for sure but likely will need home O2 (3) Lumbar disc disease: no complaints of this today (4) Hyperlipidemia: continue crestor (5) History of TIA (transient ischemic attack): no active cerebrovascular symptoms (6) History of atrial fibrillation: rate controlled, not on chornic anticoagulation (7) CAD (coronary artery disease): no anginal symptoms (8) COPD (chronic obstructive pulmonary disease): respiratory management as per critical care at this time - again as above noted concern would be progression to chronic respiratory failure (9) DVT prophylaxis: lovenox Admission and Anticipated Discharge Date Admission Date: September 22, 2019 Subjective extubated, on bipap, feeling reasonably well - breathing OK no distress. updated on overall plan she expresses understanding, no other acute complaints. Review of Systems Review of Systems: All systems reviewed & are unremarkable except as noted in HPI & below Physical Exam Physical Exam: gen aao pleasant nad heent nc at mmm breathing unlabored no accessory muscles good effort - on bipap but able to converse, skin no rashes no pallor or icterus Results & Data Results & Data ([facility]) Vital Signs (Past 12 Hours) Vital Signs Pulse Pulse Resp BP Pulse Ox 09/24/19 15:20 72 23 91 09/24/19 14:45 70 22 91 09/24/19 14:35 70 20 121/69 91 09/24/19 14:30 73 21 90 09/24/19 14:15 70 24 91 09/24/19 14:05 70 21 125/61 91 09/24/19 14:00 72 30 H 91 09/24/19 13:45 73 16 92 09/24/19 13:35 72 13 111/67 91 09/24/19 13:30 72 20 93 09/24/19 13:29 76 21 92 09/24/19 13:15 68 25 H 95 09/24/19 13:05 71 30 H 124/74 94 09/24/19 13:00 71 23 93 09/24/19 12:45 70 26 H 95 09/24/19 12:35 74 28 H 133/78 95 05/15/20 12:30 74 20 94 05/15/20 12:15 72 24 94 05/15/20 12:05 72 23 121/69 94 05/15/20 12:00 71 24 93 05/15/20 11:45 74 27 H 93 05/15/20 11:35 72 24 118/66 93 05/15/20 11:30 73 25 H 93 05/15/20 11:15 80 28 H 94 05/15/20 11:06 69 23 94 05/15/20 11:04 74 22 130/72 94 05/15/20 11:00 73 17 97 05/15/20 10:45 75 25 H 96 05/15/20 10:35 74 22 107/74 97 05/15/20 10:30 76 20 97 05/15/20 10:15 77 23 95 05/15/20 10:05 76 22 135/78 96 05/15/20 10:00 77 26 H 96 05/15/20 09:45 74 32 H 95 05/15/20 09:34 78 26 H 129/75 96 05/15/20 09:30 78 26 H 95 05/15/20 09:15 79 25 H 94 05/15/20 09:04 81 27 H 123/80 95 05/15/20 09:00 80 27 H 94 05/15/20 08:45 82 27 H 95 05/15/20 08:34 88 36 H 123/73 95 05/15/20 08:30 80 28 H 95 05/15/20 08:16 89 27 H 95 05/15/20 08:15 89 27 H 95 05/15/20 08:05 93 H 32 H 147/86 H 95 05/15/20 08:00 92 H 95 05/15/20 07:45 91 H 95 05/15/20 07:43 85 136/70 94 05/15/20 07:30 86 90 05/15/20 07:15 85 95 05/15/20 07:13 77 137/78 94 05/15/20 07:00 77 95 05/15/20 06:45 75 95 05/15/20 06:00 89 95 05/15/20 05:44 81 17 92 05/15/20 05:43 75 130/67 93 05/15/20 05:13 73 132/72 91 05/15/20 05:00 73 94 09/24/19 04:43 72 125/71 93 09/24/19 04:13 82 119/70 94 PG Care Time/CCT Total # of Minutes Spent Total Time Spent with Patient: Total time spent is greater than 50% in coordination of care (as documented) at patient's floor/unit and/or counseling patient: Coding Level of Care Code 86833 Subseq Hosp Care Lvl 2 Diagnoses Mass of left lung R91.8 Dyspnea R06.00 Lumbar disc disease M51.9 Hyperlipidemia E78.5 History of TIA (transient ischemic attack) Z86.73 History of atrial fibrillation Z86.79 CAD (coronary artery disease) I25.10 COPD (chronic obstructive pulmonary disease) J44.9 DVT prophylaxis Z29.9
[2019-09-24] MEDS: ROSUVASTATIN CALCIUM 20 MG TAB PO SCH (19:33)
[2019-09-24] MEDS: GABAPENTIN 100 MG CAP PO SCH (19:34)
[2019-09-24] MEDS: TIZANIDINE HCL 4 MG TABLET PO PRN (20:41)
[2019-09-24] MEDS ORDERED: fentaNYL citrate 100 MCG/2 ML VIAL IV ONE (21:33)
--- NOTE | 2019-09-24 23:07 | Billing Data ---
Date of Service September 24, 2019 Coding Level of Care Code 75312 Initial Inpt Care Lvl 3
--- NOTE | 2019-09-24 23:07 | Billing Data ---
Date of Service September 24, 2019 Coding Level of Care Code 80411 Initial Inpt Care Lvl 3
[2019-09-25] MEDS: AZTREONAM 2,000 MG in DEXTROSE 5% 100 ML IV SCH ×3 (01:30→17:48)
[2019-09-25 02:40] LABS: BUN Creatinine Ratio 30.1 (10-20); Calcium 7.9 mg/dl (8.5-10.1); Creatinine Clr Calc Pharmacy 74.6 ml/min; Est GFR (African American) 107.4; Est GFR (Non-African American) 92.6; Magnesium 1.7 mg/dl (1.8-2.4); Phosphorus 2.2 mg/dl (2.5-4.9); Potassium 3.1 mmol/L (3.5-5.1)
[2019-09-25] MEDS ORDERED: CALCIUM GLUCONATE 10% 1,000 MG in SODIUM CHLORIDE 0.9% 50 ML IV STA (02:45)
[2019-09-25] MEDS ORDERED: POTASSIUM PHOS 3 MMOL/1 ML INFUSION IV STA (02:45)
[2019-09-25] MEDS ORDERED: MAGNESIUM SULFATE / D5W 1 GM/100 ML BAG IV ONE ×2 (02:45→19:02)
[2019-09-25] MEDS ORDERED: POTASSIUM CHLORIDE 20 MEQ/15 ML UDC PO STA ×2 (02:45→19:06)
[2019-09-25 02:46] LABS: Basophils # (auto) 0.02 K/uL (0-0.2); Basophils % (auto) 0.1 %; Hematocrit (blood only) 34.2 % (37-47); Hemoglobin 10.7 g/dL (12.0-16.0); Immature Granulocytes # (auto) 0.13 K/uL (0.00-0.02); Immature Granulocytes % (auto) 0.5 %; Lymphocytes # (auto) 1.64 K/uL (1.2-3.4); Lymphocytes % (auto) 6.5 %; Mean Corpuscular Hgb Conc 31.3 g/dL (32-36); Mean Platelet Volume 8.6 fL (7.4-10.4); Monocytes # (auto) 3.35 K/uL (0.11-0.59); Monocytes % (auto) 13.3 %; Neutrophils # (auto) 20.04 K/uL (1.4-6.5); Neutrophils % (auto) 79.6 %; Platelet Count 560 K/uL (130-400); RDW Coefficient of Variation 19.1 % (11.5-14.5); RDW Standard Deviation 57.2 fL (36.4-46.3); Red Blood Count 4.12 M/uL (4.2-5.4); White Blood Count 25.18 K/uL (4.8-10.8)
[2019-09-25] MEDS ORDERED: METOPROLOL TARTRATE 1 MG/ML VIAL IV STA (02:48)
[2019-09-25] MEDS ORDERED: POTASSIUM PHOSPHATE 21 MMOL in SODIUM CHLORIDE 0.9% 500 ML IV ONE (03:00)
[2019-09-25] MEDS: POTASSIUM CHLORIDE / WTR 10 MEQ/100 ML PLCT IV SCH ×2 (03:07→04:47)
[2019-09-25] MEDS ORDERED: VANCOMYCIN HCL 1,000 MG in SODIUM CHLORIDE 0.9% 250 ML IV SCH (04:00)
[2019-09-25] MEDS: TIZANIDINE HCL 4 MG TABLET PO PRN (05:01)
[2019-09-25] MEDS ORDERED: ALBUMIN 25% 50 ML IV ONE (06:09)
--- NOTE | 2019-09-25 07:48 | XRay Report ---
XR chest 1V portable CLINICAL HISTORY: 83 years-old Female presenting with f/u. TECHNIQUE: Portable upright AP view of the chest was obtained. COMPARISON: 09/24/2019. FINDINGS: Several overlying external leads to grating evaluation. The patient has been extubated. Nasogastric t ube has also been removed. The spinal stimulator again projects over the midthoracic region. Obscuration of the left heart border due to the now large left pleural effusion. Decreased aeration o f the residual right upper lung. Right lung is hyperinflated. The appearance of the right lung base m ay suggest fluid in the minor fissure and diffuse underlying parenchymal heterogeneity. Pulmonary vas culature may be prominent on the right. Persistent opacity at the right basilar. No pneumothorax. Deg enerative changes of the thoracic spine. Upper abdomen normal. IMPRESSION: 1. Increased size of the now large left pleural effusion with decreasing aeration of the residual le ft upper lung. 2. Persistent right basilar infiltrate with significant diffuse underlying abnormality of the right lung as on prior. 3. Interval extubation. ACT 112: Negative or not required by law. Electronically signed by: Tom Gould M.D. 09/25/2019 7:47 AM
--- NOTE | 2019-09-25 08:33 | Critical Care Progress Note ---
Date of Service September 25, 2019 Assessment & Plan (1) Mass of left lung: --Status post vent dependent respiratory failure with acute hypoxia and hypercapnia Multifactorial secondary to A. fib with RVR on top of sedation and underlying lung malignancy Extubated 09/24/2019 Continue with BiPAP nightly and PRN shortness of breath. Continue with high flow to keep saturation between 90-92%. --Left-sided pleural effusion transudate as per lights criteria S/p thoracentesis 09/25/2019 550 mL of serous-cloudy fluid removed Pleural fluid:-LDH: 71, protein: 2.5, glucose 102, pH 7.41 Serum fluid:-LDH: 171, total protein: 6.5 Follow-up cytology and culture --Left upper lobe mass with mediastinal lymphadenopathy with postobstructive pn eumonia In a patient who is a smoker High likelihood of malignancy Status post EBUS 09/23/2019, preliminary diagnosis of small cell cancer Follow-up final path report Continue with antibiotics. Bronchial brush gram-negative bacilli --> follow-up sensitivity --Status post A. fib with RVR Converted to sinus status post extubation on 09/23/2019 Not on anticoagulation with history of subdural hematoma in the past. --Pulmonary hypertension Likely type III Echo 09/23/2019: EF 65%, RVSP 53 Continue with diuretics Keep euvolemic to negative balance --COPD Not in exacerbation Continue with inhaled bronchodilators. --History of back surgery On chronic gabapentin --Erythrocytosis Likely secondary from malignancy on top of infection Monitor --Hypokalemia, hypophosphatemia and hypomagnesia being replaced --Purplish discoloration of the left lower extremity with feeble pulse Will get arterial duplex left lower extremity to rule out peripheral vascular disease --Prophylaxis DVT: Lovenox GI: Pantoprazole Plan: Patient is +2.6 L Continue with diuretics to keep the patient negative balance. Given there is worsening of pleural effusion of the left side on the latest chest x-ray will do thoracentesis today. Risk and benefits of the procedure explained to the patient. For the feeble pulse and purplish discoloration of the left lower extremity we will get urgent arterial duplex left lower extremity to see the flow. Based on the findings, will decide further plan of care. WBC trending up, patient is already on antibiotics. Would continue with aztreonam for gram-negative bacilli growing in the bronchial brush. I have personally spent 39 minutes of critical care time in the direct manageme nt of this patient. This is a life/limb threatening event. This includes time spent evaluating yoselin ent, direct bedside care, chart review, placing orders, interpretation of diagnostic studies, discussion with consultants, patient, and family members, as well as other required patient management activities. This time is exclusive of all separately billable procedures, and teaching time and separate from and in addition to any other critical care service time. Please note the above document was generated using voice recognition software. It may contain grammatical, syntax or spelling errors. Please note the above document was generated using voice recognition software. It may contain grammatical, syntax or spelling errors. (2) COPD (chronic obstructive pulmonary disease): (3) History of atrial fibrillation: Admission and Anticipated Discharge Date Admission Date: September 22, 2019 Subjective Patient seen and examined at bedside. Mild respiratory distress. Overnight patient went into A. fib with RVR was given 5 mg of metoprolol and she brought back into sinus rhythm. No fever. At patient was using BiPAP at the time of examination. States that she feels better right now. Urinating well. Denies any headache, no nausea, no vomiting. Patient complaining of pain in the left hip and thigh area. Range of motion is intact. Pain is an active and passive movement. Review of Systems Review of Systems: All systems reviewed & are unremarkable except as noted in HPI & below Physical Exam Physical Exam: Constitutional: Mild respiratory distress HEENT: PERRLA, arcus senilis bilaterally Respiratory system: Decreased air entry on the left side, no wheeze, no rhonchi, positive crackles left lower lobe CVS: S1-S2 positive, no murmurs or gallops Abdomen: Soft, nontender, nondistended, positive bowel sounds x4 Extremities: Left lower extremity feeble pulse, there is purple discoloration of the left foot and patient is complaining of pain, it is cold to touch, no edema Neuro: Awake alert oriented x3 Psych: Normal mood and affect G/U: Positive [place] Skin: no rashes, warm and dry Lymphatic: no cervical or axillary lymphadenopathy Results & Data Results & Data ([facility]) Vital Signs (Past 12 Hours) Vital Signs Pulse Pulse Resp BP Pulse Ox 09/25/19 07:27 64 21 94 09/25/19 05:41 77 32 H 96 09/25/19 04:00 110 H 25 H 91 09/25/19 03:40 99 H 20 91 09/25/19 03:35 109 H 31 H 115/73 89 L 09/25/19 03:10 121 H 122/69 09/25/19 03:05 95 H 30 H 122/69 89 L 09/25/19 03:00 120 H 30 H 90 09/25/19 02:35 114 H 35 H 118/65 89 L 09/25/19 02:05 104 H 40 H 112/63 89 L 09/25/19 02:01 112 H 34 H 89 L 09/25/19 02:00 107 H 37 H 115/66 90 09/25/19 01:35 74 32 H 120/61 90 09/25/19 01:05 78 32 H 104/59 L 92 09/25/19 01:00 79 27 H 90 09/25/19 00:35 73 31 H 116/53 L 87 L 09/25/19 00:05 71 31 H 109/52 L 90 09/25/19 00:00 74 33 H 91 09/24/19 23:35 70 23 99/48 L 93 09/24/19 23:30 74 24 91 09/24/19 23:05 73 32 H 102/54 L 90 09/24/19 23:00 75 31 H 91 09/24/19 22:35 75 33 H 103/52 L 92 09/24/19 22:05 72 26 H 113/67 91 09/24/19 22:00 71 29 H 91 09/24/19 21:35 75 35 H 134/59 L 92 09/24/19 21:05 73 34 H 128/67 92 09/24/19 21:00 75 29 H 92 09/24/19 20:35 72 29 H 120/60 91 09/25/19 02:14 09/25/19 02:14 Microbiology 09/23/19 Unknown Bronch Auxier, Left Upper Lobe Gram Stain - Final 09/23/19 Unknown Bronch Auxier, Left Upper Lobe Bronchoalveolar Lavage Culture - Final Pseudomonas aeruginosa Coding Level of Care Code Critical Care 1st 30-74 mins Diagnoses Mass of left lung R91.8 COPD (chronic obstructive pulmonary disease) J44.9 History of atrial fibrillation Z86.79 Time Spent (min) 39
--- NOTE | 2019-09-25 08:33 | Procedure Note ---
Procedure Note Date of Service September 25, 2019 Procedure: Diagnostic therapeutic ultrasound-guided catheter thoracentesis Analytical Engineer: Dr. Teresa Jimenez Indication: Pleural effusion Consent: Signed by patient and verified with timeout prior to procedure Anesthesia: 1% lidocaine without epinephrine local. Procedure: Consent was verified and timeout performed. Appropriate imaging studies were reviewed prior to the procedure. Patient was placed in a seated position and limited thoracic ultrasound was performed of the left chest. See separate imaging. Appropriate site above the diaphragm for thoracentesis was selected. The skin was prepped and draped in normal sterile fashion. Lidocaine was used for local analgesia. Fluid was aspirated via the finder needle. A small skin catarino was made with the scalpel and the catheter over the needle apparatus was advanced over the rib into the pleural space. Using the syringe one-way valve system, a total of 550 mL's of serous-cloudy fluid was removed. Procedure was terminated due to pain in the left upper shoulder. The catheter was removed and observed to be intact. A sterile dressing was applied. Post procedure chest x-ray was ordered. Fluid was sent for labs, culture and cytology. The patient tolerated the procedure without obvious complication Coding CPT Codes Pulmonary/Thoracic - Pulmonary and Thoracic: 94225 Thoracentesis w imaging ([id number][place] [facility] [place]odes ([place]arges) Pulmonary/Thoracic Procedure 1: Pulmonary and Thoracic: 09693 Thoracentesis w imaging
[2019-09-25] MEDS: ACETAMINOPHEN 325 MG TAB PO PRN ×2 (08:36→15:51)
[2019-09-25] MEDS: FUROSEMIDE 40 MG in SYRINGE 0 ML IV SCH (08:37)
[2019-09-25] MEDS: PANTOprazole 40 MG TAB PO SCH (08:37)
[2019-09-25] MEDS: GABAPENTIN 300 MG CAP PO SCH ×4 (08:37→19:41)
[2019-09-25] MEDS: SERTRALINE HCL 50 MG TABLET PO SCH (08:38)
[2019-09-25] MEDS: ASPIRIN 81 MG ECTAB PO SCH (08:38)
[2019-09-25] MEDS: METOPROLOL SUCC 25MG EXT REL TAB PO SCH (08:38)
[2019-09-25] MEDS: UMECLIDINIUM BROMIDE 62.5MCG/BLISTER 7 PUFFS/INHALER INH SCH (08:39)
[2019-09-25 08:58] LABS: Glucose Pleural Fluid 102 mg/dl
[2019-09-25 09:03] LABS: Amylase Pleural Fluid 19 U/L; LDH Pleural Fluid 71 U/L; Total Protein Pleural Fluid 2.5 g/dl
--- NOTE | 2019-09-25 09:15 | XRay Report ---
XR chest 1V portable CLINICAL HISTORY: 83 years-old Female presenting with S/P Thoracentesis. TECHNIQUE: Portable upright AP view of the chest was obtained. COMPARISON: 09/25/2019. FINDINGS: Numerous external leads project over the right hemithorax. Spinal stimulator projects over the midtho racic spine. Atherosclerosis of the aortic arch. Left heart border remains obscured. Significant inte rval decrease in size of the now moderate to large left pleural effusion, previously large. Slightly improved aeration of the left midlung. No gross evidence of a pneumothorax. Smaller right pleural eff usion. Right lung hyperinflated. Underlying coarsened lung markings. Degenerative changes of the thor acic spine. Upper abdomen normal. IMPRESSION: 1. Decreased size of the moderate to large left pleural effusion. No gross evidence of pneumothorax. 2. Additional findings unchanged. ACT 112: Negative or not required by law. Electronically signed by: Tom Gould M.D. 09/25/2019 9:14 AM
--- NOTE | 2019-09-25 09:17 | XRay Report ---
XR hip 1V LT w pelvis CLINICAL HISTORY: 83 years-old Female presenting with pain in the hip. TECHNIQUE: Single frontal view of the pelvis and frontal and frog-leg lateral views of the left hip w ere obtained. COMPARISON: None. FINDINGS: Temperature probe projects over the pelvis. Advanced degenerative change and scoliotic curvature of t he lower lumbar spine. Sacroiliac joints, pubic symphysis, and hip joints congruent. Moderate to mario alberto re superior medial joint space loss at the left hip with moderate osteophytosis. No deformation of th e femoral head. The left femoral neck is intact. Subchondral cystic change is noted in both the femor al head and acetabulum. Osteopenia suspected. Allowing for this, bony pelvis grossly intact. Several overlying external leads. Implanted medical research tech projects over the left midabdomen. IMPRESSION: 1. Moderate degenerative changes of the left hip with osteophytosis, joint space loss, and subchondr al cystic change in the femoral head and acetabulum. 2. No acute osseous injury allowing for osteopenia. 3. Advanced degenerative changes scoliosis of the lumbar spine. ACT 112: Negative or not required by law. Electronically signed by: Tom Gould M.D. 09/25/2019 9:15 AM
[2019-09-25 09:20] LABS: Albumin Level 2.3 gm/dl (3.4-5.0); Bilirubin,Total 0.5 mg/dl (0.2-1); Total Protein 6.5 gm/dl (6.4-8.2)
[2019-09-25 09:39] LABS: Appearance Pleural Fluid HAZY; Basophils, Fluid 0 %; Color Pleural Fluid YELLOW; Eosinophils, Fluid 0 %; Lymphocytes, Fluid 63 %; Mono,Macrophage,Mesothelial 8 %; Neutrophils, Fluid 29 %; RBC Pleural Fluid (A) < 3000 /uL; Source Pleural Fluid LEFT LUNG; WBC Pleural Fluid (A) 1505 /uL
[2019-09-25] MEDS: ENOXAPARIN INJ 40 MG/0.4 ML SYR SQ SCH (09:43)
[2019-09-25] MEDS ORDERED: KETOROLAC TROMETHAMINE 15 MG/ML VIAL IV ONE (12:26)
--- NOTE | 2019-09-25 15:52 | Hospitalist Progress Note ---
Date of Service September 25, 2019 Assessment & Plan (1) Mass of left lung: highly likely malignant outpt oncology f/u to be arranged (2) Dyspnea: with acute hypoxic respiratory failure - related to mass - improving, but suspect there will remain a portion of chronic respiratory failure -probably will need home O2 await thoracentesis results (3) Lumbar disc disease: noted (4) Hyperlipidemia: continue crestor (5) History of TIA (transient ischemic attack): no active cerebrovascular symptoms (6) History of atrial fibrillation: rate controlled, not on chronic anticoagulation (7) CAD (coronary artery disease): no anginal symptoms (8) COPD (chronic obstructive pulmonary disease): respiratory management as per critical care at this time - again as above noted concern would be progression to chronic respiratory failure Admission and Anticipated Discharge Date Admission Date: September 22, 2019 Subjective sitting up in chair on high flow NC O2 no distress. ICU performed thoracentesis earlier. otherwise no new issues Physical Exam Physical Exam: gen sitting in chair resting comfortably no distress breathing unlabored no focal neuro deficits at rest Results & Data Results & Data ([facility]) Vital Signs (Past 12 Hours) Vital Signs Pulse Pulse Resp Pulse Ox 09/25/19 14:52 72 22 94 09/25/19 11:19 71 24 92 09/25/19 09:23 66 09/25/19 08:51 66 21 94 09/25/19 07:27 64 21 94 09/25/19 05:41 77 32 H 96 09/25/19 04:00 110 H 25 H 91 PG Care Time/CCT Total # of Minutes Spent Total Time Spent with Patient: Total time spent is greater than 50% in coordination of care (as documented) at patient's floor/unit and/or counseling patient: Coding Level of Care Code 80636 Subseq Hosp Care Lvl 1 Diagnoses Mass of left lung R91.8 Dyspnea R06.00 Lumbar disc disease M51.9 Hyperlipidemia E78.5 History of TIA (transient ischemic attack) Z86.73 History of atrial fibrillation Z86.79 CAD (coronary artery disease) I25.10 COPD (chronic obstructive pulmonary disease) J44.9
[2019-09-25 16:44] LABS: BUN Creatinine Ratio 29.6 (10-20); Calcium 8.2 mg/dl (8.5-10.1); Creatinine Clr Calc Pharmacy 71.5 ml/min; Est GFR (African American) 105.9; Est GFR (Non-African American) 91.4; Magnesium 1.9 mg/dl (1.8-2.4)
[2019-09-25 16:45] LABS: Potassium 3.6 mmol/L (3.5-5.1)
[2019-09-25 16:46] LABS: Phosphorus 2.5 mg/dl (2.5-4.9)
--- NOTE | 2019-09-25 17:09 | Ultrasound Report ---
ULTRASOUND LEFT LOWER EXTREMITY ARTERIAL CLINICAL HISTORY: Cold, pale, and painful left lower extremity. COMPARISON STUDY: No priors. TECHNIQUE: Real-time, grayscale, and color Doppler sonography of the arteries of the left lower extre mity is performed from the inguinal crease to the foot. Ankle-brachial indices were not assessed due to portable technique. FINDINGS: There is moderate echogenic shadowing atherosclerotic plaque seen throughout the arteries o f the left lower extremity. There are triphasic arterial waveforms in the left common femoral artery with velocities measuring up to 94 cm/s. The profunda femoris artery is patent with velocities measur ing up to 65 cm/s. Triphasic waveforms are seen throughout the superficial femoral and popliteal mary yrn. Velocities measure up to 84 cm/s in the superficial femoral artery and up to 58 cm/s in the pop liteal artery. There is three-vessel runoff to the foot. Velocities within the calf arteries measure up to 57 cm/s. The dorsalis pedis artery is patent with velocities measuring up to 31 cm/s. IMPRESSION: There is no sonographic evidence of high-grade stenosis or focal vessel cut off throughou t the arteries of the left lower extremity. Dictated: 09/25/2019 4:25 PM Transcribed: 09/25/2019 4:58 PM Nori [id number] [email or web address] Electronically signed by: Orville Duque M.D. 09/25/2019 5:08 PM
[2019-09-25] MEDS: ROSUVASTATIN CALCIUM 20 MG TAB PO SCH (19:41)
[2019-09-25] MEDS: GABAPENTIN 100 MG CAP PO SCH (19:42)
[2019-09-25] MEDS ORDERED: FUROSEMIDE 20 MG in SYRINGE 0 ML IV ONE (23:34)
[2019-09-26] MEDS: AZTREONAM 2,000 MG in DEXTROSE 5% 100 ML IV SCH ×3 (02:30→17:42)
[2019-09-26 05:00] LABS: Eosinophils # (auto) 0.03 K/uL (0-0.5); Eosinophils % (auto) 0.1 %; Hematocrit (blood only) 35.9 % (37-47); Immature Granulocytes # (auto) 0.06 K/uL (0.00-0.02); Immature Granulocytes % (auto) 0.3 %; Lymphocytes % (auto) 8.8 %; Mean Corpuscular Hemoglobin 25.5 pg (25-34); Mean Corpuscular Hgb Conc 30.6 g/dL (32-36); Mean Corpuscular Volume 83.1 fL (80-100); Monocytes # (auto) 2.12 K/uL (0.11-0.59); Monocytes % (auto) 10.4 %; Neutrophils # (auto) 16.38 K/uL (1.4-6.5); Neutrophils % (auto) 80.4 %; Platelet Count 573 K/uL (130-400); RDW Standard Deviation 57.6 fL (36.4-46.3); Red Blood Count 4.32 M/uL (4.2-5.4); White Blood Count 20.39 K/uL (4.8-10.8)
[2019-09-26 05:20] LABS: BUN Creatinine Ratio 32.8 (10-20); Bilirubin Direct 0.1 mg/dl (0-0.2); Bilirubin,Total 0.4 mg/dl (0.2-1); Calcium 8.4 mg/dl (8.5-10.1); Creatinine Clr Calc Pharmacy 60.2 ml/min; Est GFR (African American) 100.1; Est GFR (Non-African American) 86.3; Magnesium 2.3 mg/dl (1.8-2.4); Potassium 4.3 mmol/L (3.5-5.1); Total Protein 6.5 gm/dl (6.4-8.2)
[2019-09-26] MEDS: ACETAMINOPHEN 325 MG TAB PO PRN ×3 (07:19→20:23)
[2019-09-26] MEDS: GABAPENTIN 300 MG CAP PO SCH ×4 (07:19→20:22)
[2019-09-26] MEDS: SERTRALINE HCL 50 MG TABLET PO SCH (07:19)
[2019-09-26] MEDS: PANTOprazole 40 MG TAB PO SCH (07:21)
[2019-09-26] MEDS: METOPROLOL SUCC 25MG EXT REL TAB PO SCH (07:21)
[2019-09-26] MEDS: UMECLIDINIUM BROMIDE 62.5MCG/BLISTER 7 PUFFS/INHALER INH SCH (07:22)
[2019-09-26] MEDS: ASPIRIN 81 MG ECTAB PO SCH (07:22)
[2019-09-26] MEDS: ENOXAPARIN INJ 40 MG/0.4 ML SYR SQ SCH (07:22)
--- NOTE | 2019-09-26 07:49 | XRay Report ---
XR chest 1V portable HISTORY: 83 years-old Female f/u follow-up study in a patient with pleural effusions COMPARISON: Chest radiograph 09/25/2019 TECHNIQUE: Portable AP view of the chest FINDINGS: Cardiomediastinal and hilar silhouettes are unchanged. Calcified plaque of the thoracic aortic arch. Unchanged left greater than right pleural effusions. Left upper lobe collapse with left lower lobe co nsolidation redemonstrated. There is mildly improved aeration of the left lung. Mild right lung base opacities suggest probable atelectasis. Background of reticular opacities throughout the right lung r edemonstrated. Degenerative changes of the shoulders and spine. Healed remote right clavicular fractu re. A stimulator lead is again noted projecting over the midthoracic spine. IMPRESSION: 1. Unchanged left greater than right pleural effusions. No pneumothorax. 2. Mildly improved aeration of the left lung. 3. Linear right lung base opacities suggest probable atelectasis. ACT 112: Negative or not required by law. The above report was generated using voice recognition software. It may contain grammatical, syntax o r spelling errors. Electronically signed by: Ke Reina M.D. 09/26/2019 7:47 AM
[2019-09-26] MEDS: FUROSEMIDE 40 MG in SYRINGE 0 ML IV SCH (09:46)
--- NOTE | 2019-09-26 09:47 | Critical Care Progress Note ---
Date of Service September 26, 2019 Assessment & Plan (1) Mass of left lun-year-old female with past medical history of subdural hematoma, paroxysmal A. fib not on any anticoagulation, COPD was admitted to the hospital because of finding on the CAT scan of left upper lobe masslike lesion and left- sided pleural effusion. Patient had an EBUS 09/23/2019 with preliminary diagnosis of small cell cancer, patient went into A. fib with RVR post EBUS and because of respiratory distress was intubated, patient was successfully extubated. Thoracentesis was performed 09/25/2019 which is transudate. --Status post vent dependent respiratory failure with acute hypoxia and hypercapnia Multifactorial secondary to A. fib with RVR on top of sedation and underlying lung malignancy Extubated 09/24/2019 Continue with BiPAP nightly and PRN shortness of breath. Continue with O2 supplementation to keep saturation between 90-92%. --Left-sided pleural effusion transudate as per lights criteria S/p thoracentesis 09/25/2019 550 mL of serous-cloudy fluid removed Pleural fluid:-LDH: 71, protein: 2.5, glucose 102, pH 7.41 Serum fluid:-LDH: 171, total protein: 6.5 Follow-up cytology and culture --Left upper lobe mass with mediastinal lymphadenopathy with postobstructive pneumonia In a patient who is a smoker High likelihood of malignancy Status post EBUS 09/23/2019, preliminary diagnosis of small cell cancer Follow-up final path report Continue with antibiotics. Bronchial brush Pseudomonas aeruginosa--> pansensitive --Status post A. fib with RVR Converted to sinus status post extubation on 09/23/2019 Not on anticoagulation with history of subdural hematoma in the past. --Pulmonary hypertension Likely type III Echo 09/23/2019: EF 65%, RVSP 53 Continue with diuretics --COPD Not in exacerbation Continue with inhaled bronchodilators. --History of back surgery On chronic gabapentin --Erythrocytosis Likely secondary from malignancy on top of infection Monitor --Purplish discoloration of the left lower extremity with feeble pulse Improved compared to yesterday. Arterial duplex normal --Prophylaxis DVT: Lovenox GI: Pantoprazole Plan: In-N-Out: -665 mL Continue with diuretics to keep the patient negative balance. Chest x-ray from today shows improvement in the left sided aeration of the lung. Duplex of the left lower extremity was negative for significant stenosis. Bronchial culture is growing Pseudomonas aeruginosa which is pansensitive but given patient is allergic to fluoroquinolones continue with aztreonam. Okay to use the back stimulator for the patient. Patient's daughter is going to bring it for her. Patient is hemodynamically stable. And her respiratory status is back to her baseline Patient to be downgraded to med telemetry. I have personally spent 35 minutes of critical care time in the direct managemen t of this patient. This is a life/limb threatening event. This includes time spent evaluating patie nt, direct bedside care, chart review, placing orders, interpretation of diagnostic studies, discussion with consultants, patient, and family members, as well as other required patient management activities. This time is exclusive of all separately billable procedures, and teaching time and separate from and in addition to any other critical care service time. Please note the above document was generated using voice recognition software. It may contain grammatical, syntax or spelling errors. Please note the above document was generated using voice recognition software. It may contain grammatical, syntax or spelling errors. (2) COPD (chronic obstructive pulmonary disease): (3) History of atrial fibrillation: Admission and Anticipated Discharge Date Admission Date: September 22, 2019 Subjective Patient seen and examined at bedside. No acute distress, no adverse events overnight. Patient is tolerating nasal cannula now. Urinating well. Denies any chest pain, occasional cough with clear phlegm. Good appetite. The pain in the left hip is much better controlled. Left lower extremity is better than yesterday. Doppler of the left lower extremity did not show any significant occlusion. Review of Systems Review of Systems: All systems reviewed & are unremarkable except as noted in HPI & below Physical Exam Physical Exam: Constitutional: No acute distress HEENT: PERRLA, arcus senilis bilaterally Respiratory system: Decreased air entry on the left side, no wheeze, no rhonchi, positive crackles bilateral lower lobes CVS: S1-S2 positive, no murmurs or gallops Abdomen: Soft, nontender, nondistended, positive bowel sounds x4 Extremities: Left lower extremity feeble pulse, no edema Neuro: Awake alert oriented x3 Psych: Normal mood and affect G/U: No [place] Skin: no rashes, warm and dry Lymphatic: no cervical or axillary lymphadenopathy Results & Data Results & Data ([facility]) Vital Signs (Past 12 Hours) Vital Signs Temp Pulse Pulse Resp BP Pulse Ox 09/26/19 08:56 71 18 102/57 L 96 09/26/19 08:41 72 24 76/42 L 96 09/26/19 08:25 73 22 108/56 L 92 09/26/19 08:10 72 23 98/56 L 92 09/26/19 08:00 72 26 H 91 09/26/19 07:55 36.6 C 71 24 137/60 93 09/26/19 07:34 73 20 94 09/26/19 06:55 70 17 121/62 93 09/26/19 06:00 87 20 91 09/26/19 05:55 86 21 140/81 92 09/26/19 05:40 67 17 124/67 92 09/26/19 05:31 67 22 93 09/26/19 05:25 67 22 132/72 93 09/26/19 05:10 65 20 133/69 93 09/26/19 05:00 66 18 92 09/26/19 04:55 68 16 125/69 94 09/26/19 04:40 68 24 132/71 93 09/26/19 04:25 65 20 119/70 93 09/26/19 04:10 67 22 116/65 93 09/26/19 04:00 62 24 93 09/26/19 03:55 63 25 H 121/58 L 93 09/26/19 03:40 60 23 115/58 L 93 09/26/19 03:25 66 26 H 111/59 L 93 09/26/19 03:10 68 23 112/57 L 93 09/26/19 03:00 61 23 93 09/26/19 02:55 60 22 111/55 L 93 09/26/19 02:40 62 24 104/54 L 93 09/26/19 02:25 64 25 H 106/58 L 93 09/26/19 02:14 70 24 92 09/26/19 02:10 68 21 108/53 L 93 09/26/19 02:00 70 33 H 93 09/26/19 01:55 65 32 H 112/52 L 93 09/26/19 01:40 61 24 117/72 94 09/26/19 01:25 63 24 123/69 93 09/26/19 01:10 61 23 127/71 93 09/26/19 01:00 67 19 94 09/26/19 00:55 63 21 120/75 93 09/26/19 00:39 61 24 110/64 93 09/26/19 00:24 62 23 109/63 93 09/26/19 00:09 66 20 112/66 93 09/26/19 00:00 65 25 H 113/65 91 09/25/19 23:54 63 25 H 113/65 94 09/25/19 23:43 62 23 91 09/25/19 23:39 62 24 117/60 93 09/25/19 23:25 62 30 H 108/62 93 09/25/19 23:09 63 24 110/64 92 09/25/19 23:00 64 24 91 09/25/19 22:54 63 24 109/62 92 09/25/19 22:40 61 24 105/59 L 92 09/25/19 22:24 63 24 107/61 92 09/25/19 22:09 62 20 105/60 92 09/25/19 22:00 64 21 93 09/25/19 21:55 65 22 106/58 L 93 09/26/19 04:34 09/26/19 04:34 Microbiology 09/25/19 08:00 Pleural Fluid Acid Fast Bacilli Smear - Final 09/25/19 08:00 Pleural Fluid Gram Stain - Final 09/23/19 Unknown Bronch [place], Left Upper Lobe Gram Stain - Final 09/23/19 Unknown Bronch [place], Left Upper Lobe Bronchoalveolar Lavage Culture - Final Pseudomonas aeruginosa Coding Level of Care Code Critical Care 1st 30-74 mins Diagnoses Mass of left lung R91.8 COPD (chronic obstructive pulmonary disease) J44.9 History of atrial fibrillation Z86.79 Time Spent (min) 35
--- NOTE | 2019-09-26 16:14 | Hospitalist Progress Note ---
Date of Service September 26, 2019 Assessment & Plan (1) Mass of left lung: highly likely malignant outpt oncology f/u to be arranged (Dr Bermeo aware of her case, looked at films, asked that formal consult be as outpt after bx back - pt expresses understanding of this) (2) Dyspnea: with acute hypoxic respiratory failure - related to mass - improving, but suspect there will remain a portion of chronic respiratory failure -probably will need home O2 - but has been showing good improvement with oxygenation last 2 days (3) Lumbar disc disease: noted (4) Hyperlipidemia: continue crestor (5) History of TIA (transient ischemic attack): no active cerebrovascular symptoms (6) History of atrial fibrillation: rate remains controlled, not on chronic anticoagulation (7) CAD (coronary artery disease): no anginal symptoms during her stay (8) COPD (chronic obstructive pulmonary disease): respiratory management as per critical care at this time - again as above noted concern would be progression to chronic respiratory failure as it relates to COPD and mass (9) DVT prophylaxis: lovenox (10) Discharge planning issues: stable for med surg PT/OT eval and treat working towards home - needs progress w oxygenation and will highly likely need O2 for home; needs to show good enough mobility to be safe at home Admission and Anticipated Discharge Date Admission Date: September 22, 2019 Subjective feeling better breathing better down to 5L NC O2 nursing notes no new problems pt asks in regards to prognosis - tried to answer as best i could that at this point w lung cancers there are a wide array of possibilities from quite worrisome to more open ended - much of which will depend on characteristics of tumor and bx still pending. did reassure her that this type of discussion as well as talking about not only "what can be done but also what should be done" is part of what oncology will be doing for her once they meet. Review of Systems 2 Review of Systems: All systems reviewed & are unremarkable except as noted in HPI & below Physical Exam Physical Exam: gen aao pleasant nad heent nc at mmm breathing unlabored on 5L NC no distress no accessory muscles skin no rashes no pallor or icterus no focal neuro deficits Results & Data Results & Data ([facility]) Vital Signs (Past 12 Hours) Vital Signs Temp Pulse Pulse Resp BP BP Pulse Ox 09/26/19 13:07 71 19 119/42 L 96 09/26/19 11:37 97.9 F 74 21 105/47 L 98 09/26/19 10:10 67 23 124/67 97 09/26/19 09:43 67 17 118/66 96 09/26/19 08:56 71 18 102/57 L 96 09/26/19 08:41 72 24 76/42 L 96 09/26/19 08:25 73 22 108/56 L 92 09/26/19 08:10 72 23 98/56 L 92 09/26/19 08:00 72 26 H 91 09/26/19 07:55 97.9 F 71 24 137/60 93 09/26/19 07:34 73 20 94 09/26/19 06:55 70 17 121/62 93 09/26/19 06:00 87 20 91 09/26/19 05:55 86 21 140/81 92 09/26/19 05:40 67 17 124/67 92 09/26/19 05:31 67 22 93 09/26/19 05:25 67 22 132/72 93 09/26/19 05:10 65 20 133/69 93 09/26/19 05:00 66 18 92 09/26/19 04:55 68 16 125/69 94 09/26/19 04:40 68 24 132/71 93 09/26/19 04:25 65 20 119/70 93 09/26/19 04:10 67 22 116/65 93 PG Care Time/CCT Total # of Minutes Spent Total Time Spent with Patient: Total time spent is greater than 50% in coordination of care (as documented) at patient's floor/unit and/or counseling patient: Coding Level of Care Code 23617 Subseq Hosp Care Lvl 2 Diagnoses Mass of left lung R91.8 Dyspnea R06.00 Lumbar disc disease M51.9 Hyperlipidemia E78.5 History of TIA (transient ischemic attack) Z86.73 History of atrial fibrillation Z86.79 CAD (coronary artery disease) I25.10 COPD (chronic obstructive pulmonary disease) J44.9 DVT prophylaxis Z29.9 Discharge planning issues Z02.9
[2019-09-26] MEDS: ROSUVASTATIN CALCIUM 20 MG TAB PO SCH (20:22)
[2019-09-26] MEDS: GABAPENTIN 100 MG CAP PO SCH (20:22)
[2019-09-27] MEDS: AZTREONAM 2,000 MG in DEXTROSE 5% 100 ML IV SCH ×3 (02:53→17:59)
[2019-09-27] MEDS: ACETAMINOPHEN 325 MG TAB PO PRN ×2 (02:54→15:54)
[2019-09-27] MEDS: UMECLIDINIUM BROMIDE 62.5MCG/BLISTER 7 PUFFS/INHALER INH SCH (08:33)
[2019-09-27] MEDS: PANTOprazole 40 MG TAB PO SCH (08:34)
[2019-09-27] MEDS: GABAPENTIN 300 MG CAP PO SCH ×4 (08:34→20:52)
[2019-09-27] MEDS: ASPIRIN 81 MG ECTAB PO SCH (08:34)
[2019-09-27] MEDS: METOPROLOL SUCC 25MG EXT REL TAB PO SCH (08:35)
[2019-09-27] MEDS: SERTRALINE HCL 50 MG TABLET PO SCH (08:35)
[2019-09-27] MEDS: ENOXAPARIN INJ 40 MG/0.4 ML SYR SQ SCH (08:36)
[2019-09-27] MEDS: FUROSEMIDE 40 MG in SYRINGE 0 ML IV SCH (09:58)
--- NOTE | 2019-09-27 17:04 | Electrocardiogram Report ---
Test Reason : Blood Pressure : / mmHG Vent. Rate : 085 BPM Atrial Rate : 220 BPM P-R Int : 000 ms QRS Dur : 078 ms QT Int : 356 ms P-R-T Axes : 000 097 -25 degrees QTc Int : 423 ms Atrial fibrillation Rightward axis Low voltage QRS T wave abnormality, consider inferior ischemia Abnormal ECG When compared with ECG of 23-SEP-2019 12:32, Vent. rate has decreased BY 51 BPM Nonspecific T wave abnormality no longer evident in Lateral leads Confirmed by Felix Sorto ([id number]) on 09/27/2019 5:04:13 PM Referred By: Rolo Ron Confirmed By:Evin Sorto
--- NOTE | 2019-09-27 17:37 | Family Medicine Progress Note ---
Date of Service September 27, 2019 Assessment & Plan (1) Mass of left lun-year-old female was admitted on 22 Sep 2019 for shortness of breath for a few days. Left lung mass, dyspnea, acute hypoxic respiratory failure, COPD: COVID and influenza negative. 5+ cm left hilar and mediastinal mass with secondary left upper lobe collapse. See pulmonary notes. Underwent EBUS (bronch) on 14May, subsequently intubated for respiratory distress. 15May extubated, then BiPAP. Presently still has a small NC oxygen requirement. - On home budesonide. - Dr. Bermeo (oncology) is aware of her case. Recommended formal outpatient consult once biopsies are available. Patient has not met him yet but is also aware of plan. - Depending on path results, may pursue inpatient treatment options. - Consulted palliative care for their input as well. Left pleural effusion: Possibly post-obstructive pneumonia versus parapneumonic effusion. Started on vancomycin and aztreonam. 16May s/p thoracentesis obtaining transudate fluid. 14May bronch culture growing pansensitive Pseudomonas. 16May pleural fluid studies pending. Has allergy to fluoroquinolones. - Continuing aztreonam. Will likely remain an inpatient for complete 7-day course. - Spoke with pulmonology. They recommended palliative care consult. Hypokalemia, hypomagnesemia: Replaced, monitoring. Elevated BNP, pulmonary hypertension: 14May TTE noted EF 65-70%, no regional wall abnormalities, some valve disease, moderate pulmonary hypertension, and small pericardial effusion without evidence of tamponade. Was on Lasix 40 mg daily at home. - Will convert IV Lasix here to 80 mg po daily. Goal for euvolemic to negative balance. Atrial fibrillation: Rate controlled. Not on chronic anticoagulation due to history of subdural hematoma. Briefly in A. fib with RVR during bronchoscopy requiring diltiazem drip. LLE purplish color: 16May arterial duplex negative for significant stenosis. No present discoloration. Monitoring. Ongoing medical issues: - Hyperlipidemia: Continue home Crestor. - History of TIA: No active symptoms. On daily aspirin. - CAD: Prior stent placements in 2016. No present anginal symptoms. Continue home metoprolol, aspirin, rosuvastatin. - GERD: Continue home pantoprazole. - Lumbar disc disease: Continue home gabapentin. Has a back stimulator. 16May hip x-ray noted lumbar spine scoliosis and advanced degenerative changes. - Left hip pain: 16May hip x-ray noted moderate degenerative changes. 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 - Prior [id number] smoker, quit 15 years ago. Code Status: Full code. DVT prophy: Lovenox. Diet: Heart healthy, easy to chew diet. PT/OT: Ordered. Disbo: Admitted to [facility] with telemetry. Case management on board. Patient normally lives at home alone, but says her daughter lives five minutes away and can help. (2) Dyspnea: (3) Acute respiratory failure with hypoxia: (4) COPD (chronic obstructive pulmonary disease): (5) Pleural effusion: (6) Hypokalemia: (7) Hypomagnesemia: (8) Pulmonary hypertension: (9) Atrial fibrillation: (10) Hyperlipidemia: (11) History of TIA (transient ischemic attack): (12) CAD (coronary artery disease): (13) GERD (gastroesophageal reflux disease): (14) Lumbar disc disease: (15) Left hip pain: (16) Situational depression: Admission and Anticipated Discharge Date Admission Date: September 22, 2019 Supervising Physician Co-Signing Physician Notes I personally examined the patient and verified all valle points of history and exam, discussed case, and agree with decision making with Dr. Maynard with the following additions/exceptions: Pt feeling well, not SOB but remains on 3LNC O2. No chest pain or cough. Is eating well, no N/V. Discussed pathology still pending and then will have a better sense of prognosis, but she is willing to discuss goals of care with Palliative Care. Denies heart palpitations, not lightheaded VSS NAD,AAOx3 Irreg irreg with normal rate BS diminished entire left side, clear on right Abd +BS soft NT ND Ext no edema or calf tenderness Skin no rashes ECG with rate controlled Afib Labs reviewed 83 yo female here with left lung mass and post-obstructive Pseudomonas PNA and JORGE collapse, VDRF, rapid Afib Await pathology Back in Afib but rate controlled, not on AC due to h/o GI bleed and ICH? Continued stay for IV abx to complete 7 day course for PNA given allergy to FQ Subjective Spoke with patient earlier this morning. She says overall that she is doing well. Denies any particular complaints, though did say that she has some hip pain for which Tylenol helps. She denies any chest pain or difficulty breathing. No particular concerns raised. - I did confirm that the patient is aware that she will likely follow-up with Dr. Bermeo of oncology upon hospital discharge. Review of Systems Review of Systems: Per HPI as above. Physical Exam Physical Exam: General Appearance: Awake, alert & oriented, conversing easily and comfortable in general, NAD. CV: +S1S2 irregularly irregular, no murmur. Pulm: Mild bilateral lower field rales. Otherwise clear. On 3 L nasal cannula oxygen. There is a Band-Aid on her right back at the site of her pleurocentesis. Abdomen: +BS, soft, non-tender, non-distended. Extremities: No pedal edema or calf tenderness. Moving all extremities naturally and easily. Do not appear blue. Neuro: No gross neuro deficits. Results & Data ([facility]) Vital Signs (Past 12 Hours) Vital Signs Temp Pulse Resp BP Pulse Ox 09/27/19 15:11 36.7 C 77 16 100/62 97 09/27/19 07:40 36.5 C 59 L 18 125/73 97 Laboratory Results 09/23/19 Range/Units 11:10 Flow Cytometry Comment See Comment Medications Administered Current Inpatient Medications Acetaminophen (Tylenol) 650 mg PO Q4H PRN PRN Reason: Pain or Fever Stop: 10/22/19 22:53 Last Admin: 09/27/19 15:54 Dose: 650 mg Documented by: Aspirin (Ecotrin Ectab) 81 mg PO DAILY [facility] Stop: 10/23/19 08:59 Last Admin: 09/27/19 08:34 Dose: 81 mg Documented by: Enoxaparin Sodium (Lovenox) 40 mg SQ Q24H [facility] Stop: 10/23/19 08:59 Last Admin: 09/27/19 08:36 Dose: 40 mg Documented by: Furosemide (Lasix) 80 mg PO QAM [facility] Stop: 10/28/19 08:59 Gabapentin (Neurontin) 300 mg PO QID [facility] Stop: 10/22/19 22:46 Last Admin: 09/27/19 13:17 Dose: 300 mg Documented by: Gabapentin (Neurontin) 100 mg PO HS [facility] Stop: 10/22/19 22:46 Last Admin: 09/26/19 20:22 Dose: 100 mg Documented by: Aztreonam 2,000 mg/ Dextrose 110 mls @ 100 mls/hr IV Q8H [facility]; Protocol Stop: 09/30/19 00:00 Last Infusion: 09/27/19 11:14 Dose: Infused Documented by: Metoprolol Succinate (Toprol Xl) 12.5 mg PO DAILY [facility] Stop: 10/23/19 08:59 Last Admin: 09/27/19 08:35 Dose: 12.5 mg Documented by: Pantoprazole Sodium (Protonix) 40 mg PO DAILY [facility] Stop: 10/23/19 08:59 Last Admin: 09/27/19 08:34 Dose: 40 mg Documented by: Rosuvastatin Calcium (Crestor) 20 mg PO [facility] Stop: 10/22/19 22:46 Last Admin: 09/26/19 20:22 Dose: 20 mg Documented by: Sertraline HCl (Zoloft) 25 mg PO DAILY [facility] Stop: 10/23/19 08:59 Last Admin: 09/27/19 08:35 Dose: 25 mg Documented by: Tizanidine HCl (Zanaflex) 1 mg PO TID PRN PRN Reason: muscle spasticity Stop: 10/22/19 22:46 Last Admin: 09/25/19 05:01 Dose: 1 mg Documented by: Umeclidinium Murdock (Incruse Ellipta) 1 puffs INH DAILY [facility] Stop: 10/23/19 08:59 Last Admin: 09/27/19 08:33 Dose: 1 puffs Documented by: Resident Activity Tracking Resident Involvement: Resident Care Provided Care Provided: Adult Hospital Medicine
--- NOTE | 2019-09-27 18:59 | XRay Report ---
TWO VIEW CHEST CLINICAL HISTORY: Pleural effusions. FINDINGS: PA and lateral chest radiographs are compared to study dated 09/26/2019 and correlated with chest CT dated 09/22/2019. The heart is top normal in size noting atherosclerotic calcification of the thoracic aorta. The pulmonary vasculature is noncongested. Chronic interstitial thickening is simila r to previous. Significant atelectasis of the left upper lobe persists. There are left larger than ri ght pleural effusions with associated atelectasis. These are unchanged from yesterday. There is no pn eumothorax. The skeletal structures are osteopenic. The bony thorax appears intact. Intrathecal lead projects over the mid thoracic spine. IMPRESSION: 1. Left larger right pleural effusions with associated atelectasis have not appreciably changed from yesterday. 2. Significant left upper lobe atelectasis is also similar to previous. ACT 112: Negative or not required by law. Electronically signed by: Orville Duque M.D. 09/27/2019 6:58 PM
[2019-09-27] MEDS: ROSUVASTATIN CALCIUM 20 MG TAB PO SCH (20:52)
[2019-09-27] MEDS: GABAPENTIN 100 MG CAP PO SCH (20:52)
[2019-09-28] MEDS: AZTREONAM 2,000 MG in DEXTROSE 5% 100 ML IV SCH ×3 (02:05→18:24)
[2019-09-28 06:48] LABS: Hematocrit (blood only) 39.6 % (37-47); Hemoglobin 12.1 g/dL (12.0-16.0); Mean Corpuscular Hemoglobin 25.6 pg (25-34); Mean Corpuscular Hgb Conc 30.6 g/dL (32-36); Mean Corpuscular Volume 83.7 fL (80-100); Mean Platelet Volume 8.9 fL (7.4-10.4); Nucleated RBC # (auto) 0.07 K/uL (0-0); Nucleated RBC % (auto) 0.5 %; Platelet Count 626 K/uL (130-400); RDW Coefficient of Variation 18.5 % (11.5-14.5); RDW Standard Deviation 56.9 fL (36.4-46.3); Red Blood Count 4.73 M/uL (4.2-5.4); White Blood Count 13.19 K/uL (4.8-10.8)
[2019-09-28] MEDS ORDERED: FUROSEMIDE 80 MG TAB PO SCH (09:00)
--- NOTE | 2019-09-28 09:25 | Billing Data ---
Date of Service September 27, 2019 Coding Level of Care Code 56229 Subseq Hosp Care Lvl 3
[2019-09-28] MEDS: GABAPENTIN 300 MG CAP PO SCH ×4 (09:26→20:37)
[2019-09-28] MEDS: ASPIRIN 81 MG ECTAB PO SCH (09:26)
[2019-09-28] MEDS: UMECLIDINIUM BROMIDE 62.5MCG/BLISTER 7 PUFFS/INHALER INH SCH (09:26)
[2019-09-28] MEDS: METOPROLOL SUCC 25MG EXT REL TAB PO SCH ×2 (09:27→12:04)
[2019-09-28] MEDS: PANTOprazole 40 MG TAB PO SCH (09:27)
[2019-09-28] MEDS: SERTRALINE HCL 50 MG TABLET PO SCH (09:28)
[2019-09-28] MEDS: ENOXAPARIN INJ 40 MG/0.4 ML SYR SQ SCH (09:30)
--- NOTE | 2019-09-28 13:14 | Consultation Report ---
DATE OF CONSULTATION: 09/28/2019 HEMATOLOGY CONSULTATION REASON FOR CONSULTATION: Locally advanced small cell lung cancer. HISTORY OF PRESENT ILLNESS: Key is a very pleasant 83-year-old female patient who was admitted to [facility] on 09/21 with subacute-onset shortness of breath and dyspnea on exertion. Key has several comorbid issues including atrial fibrillation, coronary artery disease, status post stent x2, COPD, hyperlipidemia and degenerative lumbar disc disease. Has otherwise continued to live independently until she presented to our facility with the above symptoms. CT scan of the chest revealed a large left hilar and mediastinal mass measuring 5 cm with secondary occlusion of the left upper lobe bronchus and secondary left upper lobe consolidation and collapse. Pathologic mediastinal lymphadenopathy including a 24 mm precarinal and a 27 mm prevesicular lymph node is noted. A [id number] left pleural effusion. The primary service asked me to see her on admission and I recommended they get the pulmonary service involved for formal workup and diagnosis. I was contacted by Dr. Hairston today, informally advising me that a preliminary diagnosis of small cell lung cancer was established and hence, I came to Key's bedside to introduce myself. Key for the most part has been feeling relatively well. She has no current pain issues. She has not noticed a decrease in her appetite. Overall, she has a reasonable performance status, able to perform activities of daily living and caring for herself. She has 1 daughter who lives locally and her son lives in [place] at the present time. From what I understand, thoracentesis was performed and found to be transudative. We will discuss final pathology confirmation with path department later on today. PAST MEDICAL HISTORY: Again significant for COPD, elevated BNP, electrolyte dysfunction, small cell lung cancer (presumed), history of coronary artery disease. MEDICATIONS PRIOR TO ADMISSION: Omeprazole 40 mg p.o. daily, supplemental calcium 1 tablet p.o. b.i.d., aspirin 81 mg p.o. daily, furosemide 40 mg p.o. daily, metoprolol 12.5 mg p.o. daily, multivitamin 1 tablet p.o. daily, nitroglycerin 0.4 mg x3 for angina, rosuvastatin 20 mg p.o. at bedtime, bifidobacterium infantis 4 mg p.o. daily, acetaminophen 650 mg p.o. q.4 hours p.r.n., chlorhexidine 15 mL buccal b.i.d., cholecalciferol 2000 units p.o. b.i.d., tiotropium bromide 18 mcg capsule 1 capsule inhaled daily, tizanidine 1 mg p.o. t.i.d., hydrocodone/acetaminophen 1 tablet p.o. q.6 hours p.r.n., gabapentin 300 mg p.o. q.i.d., sertraline 25 mg p.o. daily, doxycycline 100 mg p.o. b.i.d., prednisone 20 mg p.o. daily, albuterol sulfate 2 puffs inhaled q.4 hours p.r.n. and then also by nebulizer 2.5 mg inhaled q.i.d., budesonide 1 mg inh q.i.d. ALLERGIES: INCLUDE BISPHOSPHONATE THERAPY, PENICILLINS, NAPROSYN, LEVOFLOXACIN, DICLOXACILLIN AND DICLOFENAC. SOCIAL HISTORY: Again, patient is retired. She has a remote smoking history of approximately 15 pack years roughly, quit several years ago. Negative for alcohol, negative for illicit substances. She is . FAMILY HISTORY: Mother suffered from hypertension. Her brother suffered from gallbladder disease. No family history of cancers otherwise. REVIEW OF SYSTEMS: As per HPI, most notably for shortness of breath and dyspnea on exertion. She denies any cough or hemoptysis presently. GENERAL: Negative for anorexia or weight loss. Negative for fevers, chills or night sweats. SKIN: No rashes or lesions. No history of dermatoses. HEENT: Negative for headaches, lightheadedness or dizziness. No acute visual or hearing deficits. She wears corrective lenses, however. Nares; no nasal congestion or rhinorrhea. No buccal lesions or ulcerations. No dysphagia presently. LYMPHATICS: No history of lymphoproliferative disease. CARDIAC: Positive history of coronary artery disease. No current angina or palpitations. PULMONARY: As per HPI. GASTROINTESTINAL: Negative for abdominal pain, nausea, vomiting, diarrhea or constipation, hematochezia or melena stools. GENITOURINARY: No hematuria, dysuria, or urinary incontinence. PSYCHIATRIC: Negative for anxiety, depression or psychoses. ENDOCRINE: Negative for diabetes or thyroid disease. MUSCULOSKELETAL: Negative for arthralgias. No focal muscle weakness. NEUROLOGIC: Negative for seizure, stroke, or migraine headache. HEMATOLOGIC: Positive for leukocytosis and thrombocytosis. PHYSICAL EXAMINATION: NEUROLOGICAL: A very pleasant 83-year-old female, awake, alert and appropriate, in no acute distress. VITAL SIGNS: Temperature 36.4, pulse 87, respiratory rate 18, blood pressure 93/59. SKIN: Warm, dry, noncyanotic without petechia, rash or ecchymosis. HEENT: Head is atraumatic, normocephalic. Eyes: PERRLA, EOMI. Sclerae nonicteric. Nares are patent without rhinorrhea or discharge. Throat clear. Tongue midline. Mucous membranes are moist. NECK: Supple without JVD or thyromegaly. LYMPHATICS: No cervical, supraclavicular, axillary or inguinal palpable nodes. HEART: Regular rate and rhythm. No clicks, rubs, murmurs or gallops. LUNGS: Diminished breath sounds in the left upper chest posteriorly. No rales or rhonchi otherwise appreciated. ABDOMEN: Soft, nontender, nondistended, without palpable hepatosplenomegaly. Bowel sounds are active. EXTREMITIES: Pulses and strength are equal in all 4 extremities. No clubbing, cyanosis or edema. NEUROLOGICAL: The patient is awake, alert, and oriented x3. Cranial nerves are grossly intact. LABORATORY DATA: WBC count 13,190, hemoglobin 12.1, platelet count 626,000. RADIOGRAPHIC DATA: CT scan of the chest as described in the HPI. IMPRESSION: 1. Small cell lung cancer (stage indeterminate). 2. Shortness of breath and dyspnea on exertion attributable to suspected small cell lung cancer. 3. Left pleural effusion (transudative). 4. Atrial fibrillation. PLAN: In summary, it was my pleasure to meet with Key at bedside today. The patient has been with us at [facility] for approximately 1 week while pulmonary service worked her up, obtained biopsies and performed a thoracentesis. According to Dr. Hairston, a confirmed diagnosis of small cell lung cancer has been reported. Briefly discussed the utility of treating Key with chemotherapy. A few other things should be done perhaps as outpatient, particularly PET scan and MRI of the brain. Small cell lung cancer has a propensity of spreading to the ISO COORDINATOR and thus emerging disease should be ruled out. Depending on the extent of disease, Key could receive systemic chemotherapy versus chemoradiation if her disease is locally advanced. Generally speaking, small cell lung cancers are not curable, but certainly highly responsive to both chemo and radiation therapy. Therefore, if she is discharged within the next 24 hours, please make arrangements for outpatient PET and MRI of the brain to be done. I will make plans to see Key in the office within the next week or two to provide further details regarding treatment. I agree with medical management otherwise and if there are further questions or concerns, feel free to contact me at any time. Thank you for allowing me to participate in the care of this very pleasant patient. MARIZOL
--- NOTE | 2019-09-28 13:29 | Palliative Care Consultation ---
Date of Consultation September 28, 2019 Assessment & Plan (1) Goals of care, counseling/discussion: -83 year old female patient with PMH Afib, CAD s/p stent placement x2, COPD, HLD, lumbar disc disease admitted to the hospital six days ago for hypoxia secondary to a new left lung mass found on CXR and CT Chest. Patient lives home alone, daughter is nearby. She was feeling SOB for a few days, even at rest, so she decided to come to the hospital. CT Chest showed "1. Large left hilar and mediastinal mass measuring at least 5 cm with secondary occlusion of the left upper lobe bronchus and secondary left upper lobe consolidation/collapse 2. Pathologic mediastinal lymphadenopathy including a 24 mm precarinal lymph node, and 27 mm prevascular lymph node 3. [id number] left pleural effusion." On 09/22, patient had EBUS with TBNA and FNA performed. At the end of bronch, patient went into Afib with RVR-- diltiazem started. Sedation was reversed, but patient remained minimally responsive. She was intubated and kept in ICU. She was quickly extubated the next day and is now requiring only nasal cannula. Patient does have a remote smoking history, but does not wear oxygen at home. 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 Pleural fluid pathology still pending. Patient is to have a formal heme/onc consult as an outpatient. She will likely need to return home with oxygen. Pulmonology has recommended a palliative care consultation to discuss goals of care. -Patient to be seen by palliative MD this afternoon. -Given that patient does not have all pathology back yet, and has not met with heme/onc, treatment plan is uncertain at this time. Of course it is known that small cell lung cancer holds a grim outlook, especially for an elderly woman. -Once patient has had a chance to meet with heme/onc to discuss diagnosis and options, outpatient palliative referral could be helpful to assist patient and family in decision making and advance care planning. (2) Acute respiratory failure with hypoxia: (3) Mass of left lung: (4) Pleural effusion: Supervising Physician Co-Signing Physician Notes Chart reviewed, patient seen and examined. Collaborated with AUTUMN Redman as well as attending physician Dr. Hairston Patient is a delightful 83-year-old female with new diagnosis of left-sided small cell lung cancer. Patient reports she had a fall back on March 02, 2019 and sustained multiple facial fractures. Patient had a chest x-ray at that time which was normal per patient. Patient does report she has had her pursed lip breathing on and off for the past several months. Patient presented to her PCP with increasing shortness of breath-was started on treatment for suspected pneumonia and a chest x-ray was ordered. After receiving the results of her chest x-ray, PCP sent patient to [facility] on 09/21. Patient reports she lives alone, her daughter lives 5 minutes away, she has a son that lives in the [facility]. Patient states she has advance care plans and her daughter is her healthcare surrogate. Patient with good functional status-lives independently, does have someone come in occasionally to clean the house, she drives short distances to [place] or to her daughter's home. Patient reports her daughter does her grocery shopping and any other longer distance driving. 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 She states she quit approximately 40 years ago. Patient was unable to finish her training due to her father's -she had to leave school to return home to help care for her 10-year-old sister. Patient is currently a supervisor paint and a ld teacher-both of these she enjoys and is concerned about being able to continue them. Discussed treatment options of chemo-after exploring patient's wishes-she stated she would want to try chemo. ROS only positive for pursed lip breathing, shortness of breath with exertion and occasional urinary incontinence. Patient has not been on oxygen at home, is requiring O2 at 3 L to maintain sats in the high 90s. Patient denies pain or discomfort. PE: Patient awake, alert and oriented x4, states she feels comfortable at rest, on exam she has pursed lip breathing with mild shortness of breath with conversation HEENT: EOMI, hearing within normal limits Respirations: Diminished breath sounds on the left, pursed lip breathing CV: Irregular, no edema Abdomen: Soft, nontender Neuro: Alert and oriented x4 Agree with above note, assessment and plan as per AUTUMN Redman- discussed outpatient follow-up in palliative care clinic with patient. History of Present Illness Attending Physician: Ratna Hairston MD History of Present Illness This 83 year old female patient with PMH Afib, CAD s/p stent placement x2, COPD, HLD, lumbar disc disease admitted to the hospital six days ago for hypoxia secondary to a new left lung mass found on CXR and CT Chest. Patient lives home alone, daughter is nearby. She was feeling SOB for a few days, even at rest, so she decided to come to the hospital. CT Chest showed "1. Large left hilar and mediastinal mass measuring at least 5 cm with secondary occlusion of the left upper lobe bronchus and secondary left upper lobe consolidation/collapse 2. Pathologic mediastinal lymphadenopathy including a 24 mm precarinal lymph node, and 27 mm prevascular lymph node 3. Bbowt-wn-wabkynau left pleural effusion." On 09/22, patient had EBUS with TBNA and FNA performed. At the end of bronch, patient went into Afib with RVR-- diltiazem started. Sedation was reversed, but patient remained minimally responsive. She was intubated and kept in ICU. She was quickly extubated the next day and is now requiring only nasal cannula. Patient does have a remote smoking history, but does not wear oxygen at home. 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 Pleural fluid pathology still pending. Patient is to have a formal heme/onc consult as an outpatient. She will likely need to return home with oxygen. Pulmonology has rec ommended a palliative care consultation to discuss goals of care. Thank you kindly for this consult. Palliative care team will follow as needed. Allergies Allergy/AdvReac Type Severity Reaction Status Date / Time diclofenac Allergy Verified 09/21/19 10:57 dicloxacillin Allergy Verified 09/21/19 10:57 levofloxacin Allergy Verified 09/21/19 10:57 naproxen Allergy Verified 09/21/19 10:57 Penicillins Allergy Verified 09/21/19 10:57 risedronate sodium Allergy Verified 09/21/19 10:57 [From Actonel] Home Medications Home Medications Medication Instructions Recorded Confirmed Type omeprazole 40 mg capsule,delayed 40 mg PO DAILY #90 cap 10/22/18 09/22/19 Rx release Ca 600 mg-D3 800 unit-magnes 40 1 tab PO BID #180 tab 11/13/18 09/22/19 Rx ot-jglp-zko-kevin-boron chewable tablet aspirin 81 mg tablet,delayed 81 mg PO DAILY #90 tab 11/13/18 09/22/19 Rx release furosemide 40 mg tablet 40 mg PO DAILY #90 tab 11/13/18 09/22/19 Rx metoprolol succinate 25 mg 12.5 mg PO DAILY #45 tab 11/13/18 09/22/19 Rx tablet,extended release 24 hr multivitamin 1 tab PO DAILY #90 tab 11/13/18 09/22/19 Rx nitroglycerin 0.4 mg sublingual 0.4 mg SL Q5M #30 tab 11/13/18 09/22/19 Rx tablet rosuvastatin 20 mg tablet 20 mg PO HS tab 02/12/19 09/22/19 History Bifidobacterium infantis 4 mg 4 mg PO DAILY #30 cap 04/20/19 09/22/19 Rx capsule acetaminophen 325 mg capsule 650 mg PO Q4H PRN #60 cap 04/20/19 09/22/19 Rx chlorhexidine gluconate 0.12 % 15 ml BUCCAL BID #1500 ml 04/20/19 09/22/19 Rx mouthwash cholecalciferol (vitamin D3) 50 2,000 units PO BID #30 tab 04/20/19 09/22/19 Rx mcg (2,000 unit) tablet tiotropium bromide 18 mcg capsule 1 cap INH DAILY #20 puffs 05/06/19 09/22/19 Rx with inhalation device tizanidine 2 mg capsule 1 mg PO TID PRN #90 cap 05/21/19 09/22/19 Rx hydrocodone 5 mg-acetaminophen 325 1 tab PO Q6H PRN #120 tab 06/23/19 09/22/19 Rx mg tablet gabapentin 300 mg capsule 300 mg PO QID #120 cap 08/16/19 09/22/19 Rx sertraline 25 mg tablet 25 mg PO DAILY #90 tab 08/16/19 09/22/19 Rx gabapentin 100 mg capsule 100 mg PO HS #90 cap 09/01/19 09/22/19 Rx doxycycline hyclate 100 mg capsule 100 mg PO BID #20 cap 09/21/19 09/22/19 Rx prednisone 20 mg tablet 20 mg PO DAILY #5 tab 09/21/19 09/22/19 Rx albuterol sulfate 2 puffs INHALATION Q4H PRN 09/22/19 09/22/19 History albuterol sulfate 2.5 mg INHALATION QID 09/22/19 09/22/19 History budesonide 1 mg INH QID 09/22/19 09/22/19 History Patient History Medical History Acid reflux (Chronic) Acquired lymphocytosis (Chronic) Anemia (Chronic) Arthritis (Chronic) CAD (coronary artery disease) (Chronic) COPD exacerbation (Chronic) History of atrial fibrillation (Chronic) History of FL (myocardial infarction) (Chronic) History of TIA (transient ischemic attack) (Chronic) Hyperlipidemia (Chronic) Lumbar disc disease (Chronic) 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) Vitamin D deficiency (Chronic) Surgical History History of appendectomy History of cataract surgery History of cholecystectomy History of inguinal hernia repair History of splenectomy Family History Mother Hypertension Brother Gallbladder disease Denies family history of Ovarian cancer Prostate cancer Myocardial infarction Breast cancer Colorectal cancer Social History Preferred Language: Thai Communication Ability: Unable Visual Impairment: Limited Hearing Ability: Normal E Business Manager Required: No Beliefs That Will Affect Care: None marital status: Current Living Situation: Alone current occupational status: retired Other Information That Helps Us Care for You: No Feels Safe at Home: Yes Safety Concerns: Feels Safe At This Time Smoking Status: Former smoker Tobacco Type: cigarettes ; Age Started Using Tobacco: 20 ; Age Quit Using Tobacco: 71 ; packs per day: 0.25 ; Second Hand Exposure: No ; Hx Alcohol Use: No Hx Substance Use: Yes substance use type: does not use Substance Use Type Other:: Hydrocodone-Acetaminophen Last Used Substance: Unknown Childhood Exposure to Second-Hand Smoke: No caffeine: Yes (tea and coffee) Dental Care, Regularly: Yes Physical Activity Frequency: Daily Seatbelt Use: always Sunscreen Use: Yes Do you think of yourself as: straight/heterosexual Results & Data Vital Signs (Past 12 Hours) Vital Signs Temp Pulse Pulse Resp BP BP Pulse Ox 09/28/19 12:02 77 102/67 09/28/19 11:31 99 09/28/19 09:25 66 95/62 L 09/28/19 07:45 36.4 C L 87 18 93/59 L 96 Coding Level of Care Code 09307 Inpt Consult Level 3 Diagnoses Goals of care, counseling/discussion Z71.89 Acute respiratory failure with hypoxia J96.01 Mass of left lung R91.8 Pleural effusion J90 Time Spent (min) 95 Time Spent Midlevel A total of 50 minutes spent by this T RAIL TURNER in reviewing chart, speaking with physicians and IDT regarding condition and plan of care. Attending Spent 45 minutes in addition to the 50 minutes spent by AUTUMN Redman for total of 95 minutes with greater than 50% of the time spent at bedside discussing patient's current status, treatment options and goals of care as well as collaborating with attending physician.
[2019-09-28] MEDS: ACETAMINOPHEN 325 MG TAB PO PRN ×2 (16:31→23:53)
[2019-09-28] MEDS ORDERED: LORazepam 0.5 MG TAB PO PRN (17:54)
--- NOTE | 2019-09-28 18:14 | Family Medicine Progress Note ---
Date of Service September 28, 2019 Assessment & Plan (1) Mass of left lun-year-old female was admitted on 22 Sep 2019 for shortness of breath for a few days. Left lung mass, dyspnea, acute hypoxic respiratory failure, COPD: COVID and influenza negative. 5+ cm left hilar and mediastinal mass with secondary left upper lobe collapse. See pulmonary notes. Underwent EBUS (bronch) on 14May, subsequently intubated for respiratory distress. 15May extubated, then BiPAP. Presently still has a small NC oxygen requirement. 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 - On home budesonide. - Seen by Dr. Bermeo (oncology). See related note. Plan for MRI brain while inpatient. - Consult to rad onc placed as well. - Further plans for outpatient PET CT (skull to thigh), PFTs, as well as appointments with oncology + radiation oncology + pulmonology (Dr. Jimenez). - See palliative care consult note. Plan for follow up with them as outpatient as well. Left pleural effusion: Possibly post-obstructive pneumonia versus parapneumonic effusion. Started on vancomycin and aztreonam. 16May s/p thoracentesis obtaining transudate fluid. 14May bronch culture growing pansensitive Pseudomonas. 16May pleural fluid studies pending. Has allergy to fluoroquinolones. - Continuing aztreonam. Will likely remain an inpatient to complete 7-day course (end 20May). - Spoke with pulmonology. They recommended palliative care consult. Hypokalemia, hypomagnesemia: Replaced, monitoring. Elevated BNP, pulmonary hypertension: 14May TTE noted EF 65-70%, no regional wall abnormalities, some valve disease, moderate pulmonary hypertension, and small pericardial effusion without evidence of tamponade. Was on Lasix 40 mg daily at home. Presently on 80 mg daily here. Goal for euvolemic to negative balance. Atrial fibrillation: Presently rate controlled. Not on chronic anticoagulation due to history of subdural hematoma. Briefly in A. fib with RVR during bronchoscopy requiring diltiazem drip. LLE purplish color: 16May arterial duplex negative for significant stenosis. No present discoloration. Monitoring. Ongoing medical issues: - Hyperlipidemia: Continue home Crestor. - History of TIA: No active symptoms. On daily aspirin. - CAD: Prior stent placements in 2016. No present anginal symptoms. Continue home metoprolol, aspirin, rosuvastatin. - GERD: Continue home pantoprazole. - Lumbar disc disease: Continue home gabapentin. Has a back stimulator. 16May hip x-ray noted lumbar spine scoliosis and advanced degenerative changes. - Left hip pain: 16May hip x-ray noted moderate degenerative changes. Tylenol prn for pain. 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 Code Status: Patient is now DNR/DNI per her wishes. DVT prophy: Lovenox. Diet: Heart healthy, easy to chew diet. PT/OT: Ordered. Disbo: Admitted to [facility] with telemetry. Case management on board. Patient normally lives at home alone, but says her daughter lives five minutes away and can help. (2) Dyspnea: (3) Acute respiratory failure with hypoxia: (4) COPD (chronic obstructive pulmonary disease): (5) Pleural effusion: (6) Hypokalemia: (7) Hypomagnesemia: (8) Pulmonary hypertension: (9) Atrial fibrillation: (10) Hyperlipidemia: (11) History of TIA (transient ischemic attack): (12) CAD (coronary artery disease): (13) GERD (gastroesophageal reflux disease): (14) Lumbar disc disease: (15) Left hip pain: (16) Situational depression: Admission and Anticipated Discharge Date Admission Date: September 22, 2019 Supervising Physician Co-Signing Physician Notes I personally examined the patient and verified all valle points of history and exam, discussed case, and agree with decision making with Dr. Maynard with the following additions/exceptions: Pt feeling well, not SOB but remains on 3LNC O2. No chest pain or cough. Is eating well, no N/V. had some low BPs with getting up today but not really symptomatic Discussed pathology results. Discussed case with Oncology VSS NAD,AAOx3 Irreg irreg with normal rate BS diminished entire left side, clear on right Abd +BS soft NT ND Ext no edema or calf tenderness Skin no rashes 83 yo female here with left lung mass and post-obstructive Pseudomonas PNA and JORGE collapse, VDRF, rapid Afib Now path consistent with Small Cell CA-responsive to therapy but not curable Brain MRI today and Rad Onc consult placed Needs outpt PET, PFTs, Oncology f/u Continues in Afib but rate controlled, not on AC due to h/o GI bleed and ICH? Continued stay for IV abx to complete 7 day course for PNA given allergy to FQ and dc to home tomorrow Subjective Spoke with patient earlier this morning. Again, overall she says that she is relatively doing well. She denies any pain, difficulty breathing, or any other complaints. Her only question is about some specifics about treatment for small cell lung cancer. Review of Systems Review of Systems: Per HPI as above. Physical Exam Physical Exam: General Appearance: Awake, alert & oriented, conversing easily and comfortable in general, NAD. CV: +S1S2 irregularly irregular, no murmur. Pulm: Mild bilateral lower field rales. Otherwise clear. On 2-3 L nasal cannula oxygen. There is a Band-Aid on her right back at the site of her pleurocentesis. Abdomen: +BS, soft, non-tender, non-distended. Extremities: No pedal edema or calf tenderness. Moving all extremities naturally and easily. Do not appear blue. Neuro: No gross neuro deficits. Results & Data ([facility]) Vital Signs (Past 12 Hours) Vital Signs Temp Pulse Pulse Resp BP BP Pulse Ox 09/28/19 15:41 36.6 C 88 16 97/67 L 97 09/28/19 12:02 77 102/67 09/28/19 11:31 99 09/28/19 09:25 66 95/62 L 09/28/19 07:45 36.4 C L 87 18 93/59 L 96 Laboratory Results 09/28/19 Range/Units 06:23 WBC 13.19 H (4.8-10.8) K/uL RBC 4.73 (4.2-5.4) M/uL Hgb 12.1 (12.0-16.0) g/dL Hct 39.6 (37-47) % MCV 83.7 (80-100) fL MCH 25.6 (25-34) pg MCHC 30.6 L (32-36) g/dL RDW Std Deviation 56.9 H (36.4-46.3) fL RDW Coeff of Jj 18.5 H (11.5-14.5) % Plt Count 626 H (130-400) K/uL MPV 8.9 (7.4-10.4) fL Absolute Nucleated RBC 0.07 H (0-0) K/uL Nucleated RBC % (auto) 0.5 % Medications Administered Current Inpatient Medications Acetaminophen (Tylenol) 650 mg PO Q4H PRN PRN Reason: Pain or Fever Stop: 10/22/19 22:53 Last Admin: 09/28/19 16:31 Dose: 650 mg Documented by: Aspirin (Ecotrin Ectab) 81 mg PO DAILY [facility] Stop: 10/23/19 08:59 Last Admin: 09/28/19 09:26 Dose: 81 mg Documented by: Enoxaparin Sodium (Lovenox) 40 mg SQ Q24H [facility] Stop: 10/23/19 08:59 Last Admin: 09/28/19 09:30 Dose: 40 mg Documented by: Furosemide (Lasix) 40 mg PO QAM [facility] Stop: 10/29/19 08:59 Gabapentin (Neurontin) 300 mg PO QID [facility] Stop: 10/22/19 22:46 Last Admin: 09/28/19 17:13 Dose: 300 mg Documented by: Gabapentin (Neurontin) 100 mg PO [facility] Stop: 10/22/19 22:46 Last Admin: 09/27/19 20:52 Dose: 100 mg Documented by: Aztreonam 2,000 mg/ Dextrose 110 mls @ 100 mls/hr IV Q8H [facility]; Protocol Stop: 09/30/19 00:00 Last Infusion: 09/28/19 10:47 Dose: Infused Documented by: Lorazepam (Ativan) 0.25 mg PO DAILY PRN PRN Reason: Anxiety Stop: 10/28/19 17:53 Metoprolol Succinate (Toprol Xl) 12.5 mg PO DAILY [facility] Stop: 10/23/19 08:59 Last Admin: 09/28/19 12:04 Dose: 12.5 mg Documented by: Pantoprazole Sodium (Protonix) 40 mg PO DAILY [facility] Stop: 10/23/19 08:59 Last Admin: 09/28/19 09:27 Dose: 40 mg Documented by: Rosuvastatin Calcium (Crestor) 20 mg PO [facility] Stop: 10/22/19 22:46 Last Admin: 09/27/19 20:52 Dose: 20 mg Documented by: Sertraline HCl (Zoloft) 25 mg PO DAILY [facility] Stop: 10/23/19 08:59 Last Admin: 09/28/19 09:28 Dose: 25 mg Documented by: Tizanidine HCl (Zanaflex) 1 mg PO TID PRN PRN Reason: muscle spasticity Stop: 10/22/19 22:46 Last Admin: 09/25/19 05:01 Dose: 1 mg Documented by: Umeclidinium [place] (Incruse Ellipta) 1 puffs INH DAILY [facility] Stop: 10/23/19 08:59 Last Admin: 09/28/19 09:26 Dose: 1 puffs Documented by: Resident Activity Tracking Resident Involvement: Resident Care Provided Care Provided: Adult Hospital Medicine
[2019-09-28] MEDS: GABAPENTIN 100 MG CAP PO SCH (20:37)
[2019-09-28] MEDS: ROSUVASTATIN CALCIUM 20 MG TAB PO SCH (20:37)
[2019-09-28] MEDS ORDERED: GADOBUTROL 65ML VIAL IV PRN (21:42)
--- NOTE | 2019-09-28 21:58 | Magnetic Resonance Report ---
MR brain wo/w con HISTORY: 83 years-old Female small cell lung ca, eval for brain mets acutely altered mental status. Clinical concern for intracranial metastasis COMPARISON: None TECHNIQUE: Multiplanar multisequence MRI of the brain was obtained both with and without the use of 5 .0 mL Gadavist FINDINGS: Pastry Supervisor localizer images demonstrate no gross extracranial abnormality. Study is mildly motion degraded . The midline fractures including the corpus callosum, brainstem, optic chiasm, pituitary and pineal glands appear unremarkable on the sagittal T1 series. No cerebellar tonsillar herniation. Degenerativ e changes are noted within the imaged cervical spine. There is no restricted diffusion to suggest acu te or subacute infarct. No acute intracranial hemorrhage, midline shift, abnormal extra-axial collection, hydrocephalus or in tracranial mass. Age-related involutional changes. Moderate patchy T2/flair hyperintensities througho ut the white matter suggest chronic microvascular ischemic disease. Study is motion degraded. No abno rmal intra-axial or extra-axial enhancement. Major vascular flow voids are patent. Mastoid air cells are clear. Mild mucosal thickening of the ethmoid air cells and nasal turbinates. Skull and soft tiss ues are unremarkable. Prior bilateral lens replacement. IMPRESSION: 1. Motion degraded exam without acute intracranial abnormality identified. 2. No abnormal enhancement to suggest metastatic disease. 3. Moderate T2/FLAIR hyperintensities throughout the white matter are suggestive of probable chronic microvascular ischemic disease. ACT 112: Negative or not required by law. The above report was generated using voice recognition software. It may contain grammatical, syntax o r spelling errors. Electronically signed by: Ke Reina M.D. 09/28/2019 9:56 PM
[2019-09-29] MEDS: AZTREONAM 2,000 MG in DEXTROSE 5% 100 ML IV SCH ×2 (01:41→09:12)
[2019-09-29 06:54] LABS: Hemoglobin 11.8 g/dL (12.0-16.0); Mean Corpuscular Hemoglobin 25.8 pg (25-34); Mean Corpuscular Hgb Conc 31.1 g/dL (32-36); Nucleated RBC # (auto) 0.05 K/uL (0-0); Nucleated RBC % (auto) 0.4 %; Platelet Count 598 K/uL (130-400); RDW Coefficient of Variation 18.1 % (11.5-14.5); RDW Standard Deviation 55.4 fL (36.4-46.3); Red Blood Count 4.58 M/uL (4.2-5.4); White Blood Count 12.93 K/uL (4.8-10.8)
[2019-09-29 07:11] LABS: BUN Creatinine Ratio 41.2 (10-20); Creatinine Clr Calc Pharmacy 79.8 ml/min; Est GFR (African American) 109.8; Est GFR (Non-African American) 94.7; Potassium 3.7 mmol/L (3.5-5.1)
[2019-09-29 07:16] VITALS: TEMP 97.7
[2019-09-29] MEDS: GABAPENTIN 300 MG CAP PO SCH ×2 (08:16→12:18)
[2019-09-29] MEDS: ASPIRIN 81 MG ECTAB PO SCH (08:16)
[2019-09-29] MEDS: ENOXAPARIN INJ 40 MG/0.4 ML SYR SQ SCH (08:17)
[2019-09-29] MEDS: UMECLIDINIUM BROMIDE 62.5MCG/BLISTER 7 PUFFS/INHALER INH SCH (08:17)
[2019-09-29] MEDS: PANTOprazole 40 MG TAB PO SCH (08:18)
[2019-09-29] MEDS: METOPROLOL SUCC 25MG EXT REL TAB PO SCH (08:18)
[2019-09-29] MEDS: SERTRALINE HCL 50 MG TABLET PO SCH (08:18)
[2019-09-29] MEDS: ACETAMINOPHEN 325 MG TAB PO PRN (08:27)
[2019-09-29] MEDS ORDERED: FUROSEMIDE 40 MG TAB PO SCH (09:00)
--- NOTE | 2019-09-29 09:07 | Billing Data ---
Date of Service September 28, 2019 Coding Level of Care Code 74660 Subseq Hosp Care Lvl 2
--- NOTE | 2019-09-29 09:37 | Discharge Summary ---
Date of Service September 29, 2019 Admission HPI Per Admitting Provider 83 yo F with PMH Afib, CAD s/p stent placement x2, COPD, HLD, lumbar disc disease who presented to the emergency department after feeling short of breath for the past few days. She attests to increased dyspnea with exertion as well as at rest, which was resolved with initiation of 2L NC in the ED. Denies any associated cough, pain with inspiration, chest pain, nausea, vomiting. She has a remote 7.5 pack year smoking history (1/2 pack x 15 years) but quit 15 years ago. Denies any sick contacts, recent fevers or chills. Admission Exam Per Admitting Provider Constitutional: well developed and + thin; not ill appearing and not in distress Eyes: PERRL, conjunctivae normal, anicteric sclerae ENMT: external ear and nose normal, oropharynx normal Neck: trachea midline, no thyromegaly Respiratory: Respiratory effort normal, no breath sounds in left mid to upper lobe, no wheezes, rhonchi or crackles auscultated,no accessory muscle use Cardiovascular: atrial fibrillation with regular rate, no murmurs, rubs or gallops, no peripheral edema, no calf tenderness, normal capillary refill Gastrointestinal (Abdomen): normal bowel sounds, soft, nontender, no hepatosplenomegaly Principal Diagnosis Small cell lung cancer, dyspnea, left pleural effusion, atrial fibrillation Discharge Exam General Appearance: Awake, alert & oriented, conversing easily and comfortable in general, NAD. CV: +S1S2 irregularly irregular, no murmur. Pulm: Mild bilateral lower field rales. Otherwise clear. On 3 L nasal cannula oxygen. There is a Band-Aid on her right back at the site of her pleurocentesis. Abdomen: +BS, soft, non-tender, non-distended. Extremities: No pedal edema or calf tenderness. Moving all extremities naturally and easily. Do not appear blue. Neuro: No gross neuro deficits. Discharge Data Allergies Allergy/AdvReac Type Severity Reaction Status Date / Time diclofenac Allergy Verified 09/21/19 10:57 dicloxacillin Allergy Verified 09/21/19 10:57 levofloxacin Allergy Verified 09/21/19 10:57 naproxen Allergy Verified 09/21/19 10:57 Penicillins Allergy Verified 09/21/19 10:57 risedronate sodium Allergy Verified 09/21/19 10:57 [From [facility]] Consultations Palliative consult assessment and plan on September 28, 2019 83 year old female patient with PMH Afib, CAD s/p stent placement x2, COPD, HLD, lumbar disc disease admitted to the hospital six days ago for hypoxia secondary to a new left lung mass found on CXR and CT Chest. Patient lives home alone, daughter is nearby. She was feeling SOB for a few days, even at rest, so she decided to come to the hospital. CT Chest showed "1. Large left hilar and mediastinal mass measuring at least 5 cm with secondary occlusion of the left upper lobe bronchus and secondary left upper lobe consolidation/collapse 2. Pathologic mediastinal lymphadenopathy including a 24 mm precarinal lymph node, and 27 mm prevascular lymph node 3. Vmwva-ly-czwassmc left pleural effusion." On 09/22, patient had EBUS with TBNA and FNA performed. At the end of bronch, patient went into Afib with RVR-- diltiazem started. Sedation was reversed, but patient remained minimally responsive. She was intubated and kept in ICU. She was quickly extubated the next day and is now requiring only nasal cannula. Patient does have a remote smoking history, but does not wear oxygen at home. 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 Pleural fluid pathology still pending. Patient is to have a formal heme/onc consult as an outpatient. She will likely need to return home with oxygen. Pulmonology has recommended a palliative care consultation to discuss goals of care. -Patient to be seen by palliative MD this afternoon. -Given that patient does not have all pathology back yet, and has not met with heme/onc, treatment plan is uncertain at this time. Of course it is known that small cell lung cancer holds a grim outlook, especially for an elderly woman. -Once patient has had a chance to meet with heme/onc to discuss diagnosis and options, outpatient palliative referral could be helpful to assist patient and family in decision making and advance care planning. Oncology assessment and plan on September 28, 2019 IMPRESSION: 1. Small cell lung cancer (stage indeterminate). 2. Shortness of breath and dyspnea on exertion attributable to suspected small cell lung cancer. 3. Left pleural effusion (transudative). 4. Atrial fibrillation. PLAN: In summary, it was my pleasure to meet with Key at bedside today. The patient has been with us at [facility] for approximately 1 week while pulmonary service worked her up, obtained biopsies and performed a thoracentesis. According to Dr. Hairston, a confirmed diagnosis of small cell lung cancer has been reported. Briefly discussed the utility of treating Key with chemotherapy. A few other things should be done perhaps as outpatient, particularly PET scan and MRI of the brain. Small cell lung cancer has a propensity of spreading to the [employer] and thus emerging disease should be ruled out. Depending on the extent of disease, Key could receive systemic chemotherapy versus chemoradiation if her disease is locally advanced. Generally speaking, small cell lung cancers are not curable, but certainly highly responsive to both chemo and radiation therapy. Therefore, if she is discharged within the next 24 hours, please make arrangements for outpatient PET and MRI of the brain to be done. I will make plans to see Kye in the office within the next week or two to provide further details regarding treatment. I agree with medical management otherwise and if there are further questions or concerns, feel free to contact me at any time. Radiation oncology consult assessment and plan on September 29, 2019 --- Assessment: Ms. 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 Staging scans including MRI of the brain so far have not revealed any evidence of metastatic disease. PET/CT scan still pending. The patient was admitted to the hospital due to shortness of breath and her overall symptoms have improved since admission. The patient has been seen by medical oncology who has recommended completion of staging work-up including PET/CT scan. I am now seeing the patient in consultation to discuss the role of radiation therapy. --- Treatment Options: 1. Concurrent chemotherapy and radiation therapy. 2. Systemic radiation therapy with consideration of palliative external beam radiation therapy to left hilar mass. 3. External beam radiation therapy alone. 4. Best supportive care. --- Recommendation: I spoken about the patient's case with Dr. Bermeo. The general recommendation is for completion staging work-up including a PET/CT scan to be completed as soon as possible in the outpatient setting. Based on these results, we will make final recommendations regarding treatment. I will request that this case is discussed at our next multidisciplinary lung cancer conference. The patient should be seen quickly back by both medical oncology and radiation oncology in the outpatient setting. The patient does come from [place]. I did discuss consideration of treatment in [facility] [place]. The patient expressed to me that she prefers to stay with her sister and [place] and have her treatments completed at our facilities locally. --- Plan: 1. PET/CT scan in the outpatient setting. Request primary hospital team to order scan patient while patient is in the inpatient setting. 2. Follow-up with medical oncology. 3. Case to be reviewed with radiation oncology and medical oncology. Case to be discussed at next multidisciplinary lung cancer conference. 4. Continue follow-up with pulmonary medicine. 5. Patient and family encouraged to call us with any further questions or concerns. Procedures Performed Operation Date: 09/23/19 10:30 <No data on this case meets the specified criteria> Operation Date: 09/23/19 10:30 Actual Procedures p Bronchoscopy, Endobronchial Ultrasound (EBUS)(Bilateral) - Teresa Jimenez MD Ordered Studies Echocardiogram on September 23, 2019 Normal left ventricular size and systolic function. EF 65-70%. No regional wall abnormalities. No left ventricular hypertrophy. Sclerotic aortic valve without significant stenosis. Mild mitral regurgitation. Moderate pulmonary hypertension suggested. Estimated RVSP 56 mmHg. Small pericardial effusion without echocardiographic evidence of tamponade physiology. No prior study available for comparison. CT chest with IV contrast on September 22, 2019 IMPRESSION: 1. Large left hilar and mediastinal mass measuring at least 5 cm with secondary occlusion of the left upper lobe bronchus and secondary left upper lobe consolidation/collapse 2. Pathologic mediastinal lymphadenopathy including a 24 mm precarinal lymph node, and 27 mm prevascular lymph node 3. Ainpd-et-eluuzxmz left pleural effusion Left lower extremity arterial ultrasound on September 25, 2019 IMPRESSION: There is no sonographic evidence of high-grade stenosis or focal vessel cut off throughout the arteries of the left lower extremity. Left hip x-ray on September 25, 2019 IMPRESSION: 1. Moderate degenerative changes of the left hip with osteophytosis, joint space loss, and subchondral cystic change in the femoral head and acetabulum. 2. No acute osseous injury allowing for osteopenia. 3. Advanced degenerative changes scoliosis of the lumbar spine. Brain MRI with and without contrast on September 28, 2019 IMPRESSION: 1. Motion degraded exam without acute intracranial abnormality identified. 2. No abnormal enhancement to suggest metastatic disease. 3. Moderate T2/FLAIR hyperintensities throughout the white matter are suggestive of probable chronic microvascular ischemic disease. Hospital Course (1) Mass of left lun-year-old female was admitted on 22 Sep 2019 for shortness of breath for a few days. Left lung mass, dyspnea, acute hypoxic respiratory failure, COPD: COVID and influenza negative. 5+ cm left hilar and mediastinal mass with secondary left upper lobe collapse. 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 See pulmonary notes. Underwent EBUS (bronch) on 14May, subsequently intubated for respiratory distress. 15May extubated. Presently still has a 2-3 L NC oxygen requirement. - Seen by Dr. Bermeo (oncology) as inpatient. See related note. 19May brain MRI without evidence of metastatic disease. Plan for outpatient follow up with him. - Consult to rad onc (Dr. Carroll) placed, though may not get seen by them as inpatient before discharge. - Further plans for outpatient PET CT (skull to thigh), PFTs, as well as appointments with oncology + radiation oncology (Dr. Carroll) + pulmonology (Dr. Jimenez). - See palliative care consult note. Plan for follow up with them as outpatient as well. - Continue home budesonide and albuterol. - Will send home on supplemental oxygen. Left pleural effusion: Possibly post-obstructive pneumonia vs. parapneumonic effusion. Started on vancomycin and aztreonam. 16May s/p thoracentesis obtaining transudate fluid. 14May bronch culture growing pansensitive Pseudomonas. 16May pleural fluid studies NGTD. Has allergy to fluoroquinolones. Completed 7-day course of aztreonam on 20May. Hypokalemia, hypomagnesemia: Replaced. Elevated BNP, pulmonary hypertension: 14May TTE noted EF 65-70%, no regional wall abnormalities, some valve disease, moderate pulm HTN, and small pericardial effusion without evidence of tamponade. Keep on home Lasix 40 mg daily. Atrial fibrillation: Presently rate controlled. Not on chronic anticoagulation due to history of subdural hematoma. Briefly in A. fib with RVR during bronchoscopy requiring diltiazem drip. LLE purplish color: 16May arterial duplex negative for significant stenosis. No present discoloration. Ongoing medical issues: - Hyperlipidemia: Continue home Crestor. - History of TIA: No active symptoms. On daily aspirin. - CAD: Prior stent placements in 2016. No present anginal symptoms. Continue home metoprolol, aspirin, rosuvastatin. - GERD: Continue home pantoprazole. - Lumbar disc disease: Continue home gabapentin. Has a back stimulator. 16May hip x-ray noted lumbar spine scoliosis and advanced degenerative changes. - Left hip pain: 16May hip x-ray noted moderate degenerative changes. Tylenol prn for pain. 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 Code Status: Patient is now DNR/DNI per her wishes. (2) Dyspnea: (3) Acute respiratory failure with hypoxia: (4) COPD (chronic obstructive pulmonary disease): (5) Pleural effusion: (6) Hypokalemia: (7) Hypomagnesemia: (8) Pulmonary hypertension: (9) Atrial fibrillation: (10) Hyperlipidemia: (11) History of TIA (transient ischemic attack): (12) CAD (coronary artery disease): (13) GERD (gastroesophageal reflux disease): (14) Lumbar disc disease: (15) Left hip pain: (16) Situational depression: Total Time Total Time Spent Total Time Spent (In Minutes): > 30 min Discharge Plan Discharge Items Patient Disposition: Home - Self-Care Reason For Visit: SOB,DYSPNEA,NEW LEFT LUNG MASS Discharge Diagnosis: Small cell lung cancer, left pleural effusion, atrial fibrillation Activity: Per Instructions section Non-emergency contact: Primary Care Provider, Oncologist and Outpatient Clerk Call non-emergency contact if: you have any medication questions Follow-up/Referrals: Joey Bermeo DO [Physician] - (Dr. Bermeo's office will call you with an appoin tment with him.) Teresa Jimenez MD [Physician] - 10/12/19 11:15 am (A follow up appt. with Dr. Jimenez is scheduled for October 11 at 11:15am. A pulmonary function test (PFT) is scheulded for October 24 at 10:30am.) Rolo Ron DO [Primary Care Provider] - Diet: Heart Healthy Diet Texture: Easy to Chew Addtl Attending Provider Instructions: You were admitted to the hospital on September 22, 2019 due to shortness of breath. While in the hospital, we evaluated the following issues: Metastatic small cell lung cancer: As you know, unfortunately during her evaluation we discovered a large lung tumor. Pathology was positive for metastatic small cell lung cancer. You spoke with oncology and our palliative care services to help with learning about potential treatment options. It is quite important that you follow-up with multiple medical groups: --- Please follow-up with Dr. Bermeo of hematology-oncology. His office will help with scheduling further PET CT scanning. --- Please follow up with Dr. Carroll of radiation oncology. His office will work to schedule an appointment for you. --- Please follow up with Dr. Jimenez of pulmonology (lungs). His office will want to obtain pulmonary function tests as soon as possible. --- We recommend you use the home oxygen at 2 liters per minute particularly when up and walking about, but if need be also at rest. - Home health will help be arranged through our field case manager. Left pleural effusion: Because of the lung cancer in the left side of your chest, there was some fluid (effusion) around her lungs. You were treated with antibiotics during your hospital stay for this. Fluid balance: As you know, normally you are on medication called Lasix (furosemide) which helps you with your overall fluid balance within your body. It will remain important to follow-up with the above specialists as well as your primary care provider to make sure this fluid balance is monitored closely. Please follow-up with all of the above physicians for ongoing care. Of course, if you were to have any acutely worsening breathing, chest pain, or other emergent symptoms you are welcome to return to the nearest emergency department for further evaluation. Pending Studies at Discharge: No Stand-Alone Forms: My [facility], Smoking Cessation Medications and DC Order Prescriptions: Continued omeprazole 40 mg capsule,delayed release(DR/EC) 40 mg PO DAILY Qty: 90 RF: 3 Align 4 mg capsule 4 mg PO DAILY Qty: 30 RF: 0 chlorhexidine gluconate 0.12 % mouthwash 15 ml BUCCAL BID Qty: 1500 RF: 0 cholecalciferol (vitamin D3) 2,000 unit tablet 2,000 units PO BID Qty: 30 RF: 0 acetaminophen 325 mg capsule 650 mg PO Q4H PRN (Reason: fever or pain) Qty: 60 RF: 0 Spiriva with HandiHaler 18 mcg capsule, w/inhalation device 1 cap INH DAILY Qty: 20 RF: 3 hydrocodone-acetaminophen 5-325 mg tablet 1 tab PO Q6H PRN (Reason: pain) Qty: 120 RF: 0 gabapentin 300 mg capsule 300 mg PO QID Qty: 120 RF: 3 sertraline 25 mg tablet 25 mg PO DAILY Qty: 90 RF: 0 gabapentin 100 mg capsule 100 mg PO HS Qty: 90 RF: 0 aspirin 81 mg tablet,delayed release (DR/EC) 81 mg PO DAILY Qty: 90 RF: 3 Caltrate 600-D Plus Minerals 600 mg calcium- 800 unit-40 mg tablet,chewable 1 tab PO BID Qty: 180 RF: 3 furosemide 40 mg tablet 40 mg PO DAILY Qty: 90 RF: 1 metoprolol succinate 25 mg tablet extended release 24 hr 12.5 mg PO DAILY Qty: 45 RF: 3 multivitamin [Daily Multi-Vitamin] tablet 1 tab PO DAILY Qty: 90 RF: 3 nitroglycerin 0.4 mg tablet, sublingual 0.4 mg SL Q5M Qty: 30 RF: 0 tizanidine 2 mg capsule 1 mg PO TID PRN (Reason: muscle spasticity) Qty: 90 RF: 3 rosuvastatin 20 mg tablet 20 mg PO HS RF: 0 albuterol sulfate 2.5 mg /3 mL (0.083 %) solution for nebulization 2.5 mg inhalation QID RF: 0 albuterol sulfate 90 mcg/actuation HFA aerosol inhaler 2 puffs inhalation Q4H PRN (Reason: Shortness Of Breath Or Wheezing) RF: 0 budesonide 1 mg/2 mL suspension for nebulization 1 mg INH QID RF: 0 Discontinued doxycycline hyclate 100 mg capsule 100 mg PO BID Qty: 20 RF: 0 prednisone 20 mg tablet 20 mg PO DAILY Qty: 5 RF: 0 Discharge Orders: Discharge Order (Routine); Ordered 09/29/19 Ordered By: Ke Maynard Admission Data Admit Date/Time: 09/22/19 20:31 Attending Provider: Ratna Hairston Admit Provider: Amy Montes Primary Care Provider: Rolo Ron Other Providers: Teresa Jimenez ; Al Mi ; Gerardo Levi ; Norma Montoya ; Joey Bermeo V. ; Carroll,Veeral B. ; [facility] Other Interventions: Discharge Summary Assessment (RN) Last Done: 09/29/19 11:13 Supervising Physician Co-Signing Physician Notes I personally examined the patient and verified all valle points of history and exam, discussed case, and agree with decision making with Dr. Maynard with the following additions/exceptions: Pt feeling well, not SOB but remains on 3LNC O2. No chest pain or cough. Is eating well, no N/V. Had a two-step and is no longer requiring any oxygen at rest but needs 2 L with exertion She feels she is ready to go home Discussed case with Oncology VSS NAD,AAOx3 Irreg irreg with normal rate, no murmur BS diminished left upper lung field with breath sounds in lower lung field on the left Abd +BS soft NT ND Ext no edema or calf tenderness Skin no rashes 83 yo female here with left lung mass and post-obstructive Pseudomonas PNA and JORGE collapse, VDRF, rapid Afib Now path consistent with Small Cell CA-responsive to therapy but not curable Brain MRI without mets and Rad Onc consult appreciated Needs outpt PET, PFTs, Oncology f/u-this has been ordered and block and case maker/nurse navigator is assisting with arranging Continues in Afib but rate controlled, not on AC due to h/o GI bleed and ICH? Has completed IV abx for complete course for PNA given allergy to FQ and dc to home today Resident Activity Tracking Resident Involvement: Resident Care Provided Care Provided: Adult Hospital Medicine
--- NOTE | 2019-09-29 09:42 | Radiation OncologyConsultation ---
Date of Consultation September 29, 2019 Assessment & Plan (1) Small cell lung cancer, overlapping sites of left lung: Assessment: Ms. 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 Staging scans including MRI of the brain so far have not revealed any evidence of metastatic disease. PET/CT scan still pending. The patient was admitted to the hospital due to shortness of breath and her overall symptoms have improved since admission. The patient has been seen by medical oncology who has recommended completion of staging work-up including PET/CT scan. I am now seeing the patient in consultation to discuss the role of radiation therapy. Treatment Options: 1. Concurrent chemotherapy and radiation therapy. 2. Systemic radiation therapy with consideration of palliative external beam radiation therapy to left hilar mass. 3. External beam radiation therapy alone. 4. Best supportive care. Recommendation: I spoken about the patient's case with Dr. Bermeo. The general recommendation is for completion staging work-up including a PET/CT scan to be completed as soon as possible in the outpatient setting. Based on these results, we will make final recommendations regarding treatment. I will request that this case is discussed at our next multidisciplinary lung cancer conference. The patient should be seen quickly back by both medical oncology and radiation oncology in the outpatient setting. The patient does come from [place]. I did discuss consideration of treatment in [place]. The patient expressed to me that she prefers to stay with her sister and [place] and have her treatments completed at our facilities locally. Plan: 1. PET/CT scan in the outpatient setting. Request primary hospital team to order scan patient while patient is in the inpatient setting. 2. Follow-up with medical oncology. 3. Case to be reviewed with radiation oncology and medical oncology. Case to be discussed at next multidisciplinary lung cancer conference. 4. Continue follow-up with pulmonary medicine. 5. Patient and family encouraged to call us with any further questions or concerns. Rationale/Explanation of Treatment: I have explained the indications, alternatives, benefits, risks and side effects of radiation therapy. I have explained the most common side effects which include but are not limited to skin erythema, skin break down, pulmonary fibrosis, adhesion development, radiation pneumonitis, spinal cord damage, brachial plexus damage, rib fracture, heart failure and heart disease, esophagitis, development of fistula, fatigue and development of secondary malignancy. I have explained the CT simulation process and treatment planning. I explained what to expect before, during and after treatment on a regular basis. The patient understands and would be willing to consent to treatment. The patient had multiple questions which were answered to her full satisfaction. Thank you for allowing us to participate in the care of this patient. This chart was completed in part utilizing [employer] - [employer] Speech Voice Recognition software. Attempts were made to minimize the grammatical errors, random word insertions, pronoun errors and incomplete sentences. Any formal questions or concerns about the content, text or information contained within the body of this dictation should be directly addressed to the provider for clarification. Levy Carroll MD Department of Radiation Oncology [facility] Present on Admission?: No History of Present Illness Attending Physician: Ratna Hairston MD History of Present Illness 09/21/2019. Primary care visit with Dr. Ron. Patient reports 30 pound weight loss over the last 3 months. Patient reports shortness of breath is getting progressively worse. Dr. Ron orders chest x-ray in addition to other recommendations. 09/21/2019. Chest x-ray. Impression: New complete collapse of left upper lobe suspicious for endobronchial lesion, potentially mucous plugging or mass lesion. Unchanged small left effusion. 09/22/2019. CT chest. IMPRESSION: 1. Large left hilar and mediastinal mass measuring at least 5 cm with secondary occlusion of the left upper lobe bronchus and secondary left upper lobe consolidation/collapse. 2. Pathologic mediastinal lymphadenopathy including a 24 mm precarinal lymph node, and 27 mm prevascular lymph node 3. [id number] left pleural effusion. 09/23/2019. Bronchoscopy with EBUS FNA. Metastatic small cell carcinoma detected at station 4L, station 7, left upper lobe mass. 09/27/2019. Pleural fluid cytology. Negative for malignancy. 09/28/2019. Medical oncology consultation. Dr. Bermeo has recommended completion of staging work-up including MRI brain and PET/CT. Dr. Bermeo did discuss treatment options including chemotherapy, chemoradiation and best supportive care. 09/28/2019. MRI brain. IMPRESSION: 1. Motion degraded exam without acute intracranial abnormality identified. 2. No abnormal enhancement to suggest metastatic disease. 3. Moderate T2/FLAIR hyperintensities throughout the white matter are suggestive of probable chronic microvascular ischemic disease. Patient states that she is doing better since she has been admitted to the hospital. Allergies Allergy/AdvReac Type Severity Reaction Status Date / Time diclofenac Allergy Verified 09/21/19 10:57 dicloxacillin Allergy Verified 09/21/19 10:57 levofloxacin Allergy Verified 09/21/19 10:57 naproxen Allergy Verified 09/21/19 10:57 Penicillins Allergy Verified 09/21/19 10:57 risedronate sodium Allergy Verified 09/21/19 10:57 [From Actonel] Home Medications Home Medications Medication Instructions Recorded Confirmed Type omeprazole 40 mg capsule,delayed 40 mg PO DAILY #90 cap 10/22/18 09/22/19 Rx release Ca 600 mg-D3 800 unit-magnes 40 1 tab PO BID #180 tab 11/13/18 09/22/19 Rx fx-lkpo-zfo-kevin-boron chewable tablet aspirin 81 mg tablet,delayed 81 mg PO DAILY #90 tab 11/13/18 09/22/19 Rx release furosemide 40 mg tablet 40 mg PO DAILY #90 tab 11/13/18 09/22/19 Rx metoprolol succinate 25 mg 12.5 mg PO DAILY #45 tab 11/13/18 09/22/19 Rx tablet,extended release 24 hr multivitamin 1 tab PO DAILY #90 tab 11/13/18 09/22/19 Rx nitroglycerin 0.4 mg sublingual 0.4 mg SL Q5M #30 tab 11/13/18 09/22/19 Rx tablet rosuvastatin 20 mg tablet 20 mg PO HS tab 02/12/19 09/22/19 History Bifidobacterium infantis 4 mg 4 mg PO DAILY #30 cap 04/20/19 09/22/19 Rx capsule acetaminophen 325 mg capsule 650 mg PO Q4H PRN #60 cap 04/20/19 09/22/19 Rx chlorhexidine gluconate 0.12 % 15 ml BUCCAL BID #1500 ml 04/20/19 09/22/19 Rx mouthwash cholecalciferol (vitamin D3) 50 2,000 units PO BID #30 tab 04/20/19 09/22/19 Rx mcg (2,000 unit) tablet tiotropium bromide 18 mcg capsule 1 cap INH DAILY #20 puffs 05/06/19 09/22/19 Rx with inhalation device tizanidine 2 mg capsule 1 mg PO TID PRN #90 cap 05/21/19 09/22/19 Rx hydrocodone 5 mg-acetaminophen 325 1 tab PO Q6H PRN #120 tab 06/23/19 09/22/19 Rx mg tablet gabapentin 300 mg capsule 300 mg PO QID #120 cap 08/16/19 09/22/19 Rx sertraline 25 mg tablet 25 mg PO DAILY #90 tab 08/16/19 09/22/19 Rx gabapentin 100 mg capsule 100 mg PO HS #90 cap 09/01/19 09/22/19 Rx doxycycline hyclate 100 mg capsule 100 mg PO BID #20 cap 09/21/19 09/22/19 Rx prednisone 20 mg tablet 20 mg PO DAILY #5 tab 09/21/19 09/22/19 Rx albuterol sulfate 2 puffs INHALATION Q4H PRN 09/22/19 09/22/19 History albuterol sulfate 2.5 mg INHALATION QID 09/22/19 09/22/19 History budesonide 1 mg INH QID 09/22/19 09/22/19 History Patient History Medical History Acid reflux (Chronic) Acquired lymphocytosis (Chronic) Anemia (Chronic) Arthritis (Chronic) CAD (coronary artery disease) (Chronic) COPD exacerbation (Chronic) History of atrial fibrillation (Chronic) History of AK (myocardial infarction) (Chronic) History of TIA (transient ischemic attack) (Chronic) Hyperlipidemia (Chronic) Lumbar disc disease (Chronic) 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) Vitamin D deficiency (Chronic) Surgical History History of appendectomy History of cataract surgery History of cholecystectomy History of inguinal hernia repair History of splenectomy Family History Mother Hypertension Brother Gallbladder disease Denies family history of Ovarian cancer Prostate cancer Myocardial infarction Breast cancer Colorectal cancer Social History Preferred Language: [place] Communication Ability: Unable Visual Impairment: Limited Hearing Ability: Normal 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 Beliefs That Will Affect Care: None marital status: Current Living Situation: Alone current occupational status: retired Feels Safe at Home: Yes Smoking Status: Former smoker Tobacco Type: cigarettes ; Age Started Using Tobacco: 20 ; Age Quit Using Tobacco: 71 ; packs per day: 0.25 ; Second Hand Exposure: No ; Hx Alcohol Use: No Hx Substance Use: Yes substance use type: does not use Substance Use Type Other:: Hydrocodone-Acetaminophen Last Used Substance: Unknown Childhood Exposure to Second-Hand Smoke: No caffeine: Yes (tea and coffee) Dental Care, Regularly: Yes Physical Activity Frequency: Daily Seatbelt Use: always Sunscreen Use: Yes Do you think of yourself as: straight/heterosexual Review of Systems Review of Systems: All systems reviewed & are unremarkable except as noted in HPI & below Physical Exam Constitutional: WD/WN, vitals as above well developed and well nourished Eyes: PERRL, conjunctivae normal, anicteric sclerae ENMT: external ear and nose normal, oropharynx normal Neck: trachea midline, no thyromegaly Respiratory: Auscultation: + diminished lung sounds Cardiovascular: RRR, no murmur, no edema Gastrointestinal (Abdomen): normal bowel sounds, soft, nontender, no hepatosplenomegaly Musculoskeletal: no cyanosis or clubbing, extremities motor strength 5/5 Skin: no rashes, warm and dry Neurologic: patellar DTR's 2+ bilat, sensation intact and PERRL, EOMI, accommodation nl, no face palsy, no dysarthria Psychiatric: A+Ox3, euthymic affect Time Spent Attending I spent 10 minutes in preparation for this consultation including reviewing all the clinical records, reviewing laboratory studies, pathology reports and imaging results. I spent 15 minutes with direct face to face interaction with the patient and/or family including performing a physical exam and answering all questions. I spent 10 minutes documenting this patient's visit. I spent 5 speaking with the following providers regarding this patient's care: Dr. Bermeo.
[2019-09-29 11:15] VITALS: BP 104/63; PULSE 85; O2SAT 97
--- NOTE | 2019-09-29 13:02 | Billing Data ---
Date of Service September 28, 2019 Coding Level of Care Code D/C Day Management >30 mins
== END 2019-09-29 15:24 | disposition home health service (06) | DRG 208 ==
LOC: ED 16:28 → SUATTDRO 20:31 → 2N 20:31 → 1E 09-23 13:22 → 3E 09-26 17:25

== ENCOUNTER 2019-11-01 10:16 | Inpatient (IN) ==
[2019-11-01] MEDS ORDERED: SODIUM CHLORIDE 0.9% 1000ML 1,000 ML IV ONE ×2 (10:43→11:59)
--- NOTE | 2019-11-01 10:49 | Emergency Department Note ---
Impression & Plan Neutropenia with fever, Pneumonia ED Provider Note NAME: IVAN SILVEIRA AGE: 84 SEX: F : 1935 ARRIVES VIA: Walk-In INFORMANT: Patient, ED PROVIDER(S): Goyo Riley DO Additional history was obtained from the patient's daughter. CHIEF COMPLAINT: Shortness of breath and fever HPI: The patient is an 84-year-old female who presented to the emergency department with her daughter for an evaluation of fever. The patient has a history of lung cancer. 1 week ago she had a port placed in the right chest to receive chemotherapy. This port has not been used yet. She has been noticing some pain around the port site. She denies having any nausea or vomiting. She does complain of difficulty breathing especially with any exertion. The patient does wear oxygen at home and states that she has been using 3 L via nasal carly dayami with some relief of her symptoms. She denies having any dysuria or frequency. She denies having any back pain. She denies having any headache or lower extremity swelling. She has no rashes. She denies any specific exposure to COVID-19. The patient called the home health nurse to see the patient today and when she was evaluated she was instructed to go to the emergency department. Her temperature was 102 degrees yesterday and 101.9 today. ROS: See above HPI for pertinent positives & negatives. A total of 10 systems reviewed and were otherwise negative. PAST MEDICAL HISTORY: See Below PAST SURGICAL HISTORY: See Below FAMILY HISTORY: See Below SOCIAL HISTORY: See Below HOME MEDICATIONS: See Below ALLERGIES: See Below VITALS: See Below PHYSICAL EXAMINATION: GENERAL: Patient is awake alert in no acute distress patient is resting comfortably and showing no signs of anxiety EYES: The conjunctivae are clear. The pupils are round and reactive. EARS, NOSE, MOUTH AND THROAT: The nose is without any evidence of any deformity. Mucous membranes are moist. Tongue is midline. NECK: The neck is nontender and supple. RESPIRATORY: Conversational dyspnea was noted. There are diminished breath sounds in the right lung field with rales at the left base. There is no significant retractions noted. CARDIOVASCULAR: Regular rate and rhythm noted there no murmurs rubs or gallops normal S1 normal S2. GASTROINTESTINAL: The abdomen is soft. Abdomen is nontender. MUSCULOSKELETAL/EXTREMITIES: There is no evidence of gross deformity full range of motion is noted in the hips and shoulders. SKIN: There is no obvious evidence of any rash. There is a port site noted in the right anterior chest wall. Wound glue is still in place with no swelling drainage or dehiscence. There is ecchymosis and tenderness to palpation. NEUROLOGIC: Patient is awake alert and oriented x3. Strength is symmetric but diminished. MEDICAL DECISION MAKING: The patient is an 84-year-old female who presented to the emergency department for an evaluation of generalized weakness. The patient was having difficulty breathing but was also found to have a fever at home yesterday as well as today. The patient is receiving chemotherapy for pneumonia. The patient had a port placed in her right anterior chest last week for chemotherapy but it has not been used yet. Given the patient's presentation I was concerned there could be a postoperative infection or possibly pneumonia. I discussed the patient's laboratory and radiographic studies with her. The patient was treated with IV fluids and IV antibiotics. Her blood pressure did improve. I discussed her case with the on-call [facility]. They have agreed to evaluate the patient in the emergency department for further management and disposition. Triage Nursing notes reviewed. Prior medical records reviewed Vital Signs: reviewed and remarkable for hypotension and tachypnea. Differential diagnosis: Reactive airway disease, pneumonia, pneumothorax, COPD, CHF, infections, cardiac ischemia, pulmonary embolism, musculoskeletal, gastrointestinal, as well as other pathologies. ER treatment provided: See below Diagnostics interpreted by me: ECG: EKG was obtained in the emergency department. My interpretation is sinus tachycardia at 104 bpm. There was a first-degree AV block noted. PACs were also noted. There was lateral ST depressions noted. This was compared to a tracing from September 27, 2019. There is no significant changes noted. Cardiac Monitoring: An order was placed for continuous cardiac monitoring. The monitor shows a rate of 89 with sinus rhythm. Laboratory studies: As stated above and show below. Imaging studies: See below Consultation(s): 1230: I discussed this case with Dr. Brand who was on-call for the [facility] group. He is agreed to evaluate the patient in the emergency department for further management and disposition. Past Med/Surg History Medical History Acid reflux Acquired lymphocytosis Anemia Arthritis CAD (coronary artery disease) s/p three BMS's to RCA in 2016 COPD (chronic obstructive pulmonary disease) History of atrial fibrillation FOLLLOWED BY [place] ([place])- NO AC- H/O SUBDURAL HEMATOMA History of KS (myocardial infarction) 2016 History of TIA (transient ischemic attack) LAST EVENT OVER 5 YEARS AGO Hyperlipidemia Lumbar disc disease On home oxygen therapy WEARS 2-3L CONT. Pleural effusion on left Monitored by pulm- not causing acute distress- thoracentesis not needed at this time. Pulmonary hypertension Situational depression Small cell lung cancer, overlapping sites of left lung NEW DX Spinal cord stimulator status IMPLANTED 2012 (ENCOURAGED TO BRING REMOTE IN AND PAPERWORK) Vitamin D deficiency Surgical History History of anesthesia reaction "TROUBLE BREATHING" History of appendectomy History of bronchoscopy History of cataract surgery RT/LEFT History of cholecystectomy History of colonoscopy History of esophagogastroduodenoscopy (EGD) History of facial surgery FELL 2018 ("FRACTURE OF FACE") HARDWARE/SCREWS INTACT History of heart artery stent 2015 (3 STENTS PLACED) TAJ CM History of inguinal hernia repair History of splenectomy 2003 History of tooth extraction Family History Mother Hypertension Brother Gallbladder disease Denies family history of Ovarian cancer Prostate cancer Myocardial infarction Breast cancer Colorectal cancer Social History Preferred Language: Tam[place] Visual Impairment: Limited Hearing Ability: Normal Wind Up Operator Required: No Beliefs That Will Affect Care: None marital status: Current Living Situation: Alone current occupational status: retired Feels Safe at Home: Yes Smoking Status: Former smoker Tobacco Type: cigarettes ; Age Started Using Tobacco: 20 ; Age Quit Using Tobacco: 71 ; packs per day: 0.25 ; Cigarettes Per Day: 2016 ; Second Hand Exposure: No ; Hx Alcohol Use: No Hx Substance Use: No Childhood Exposure to Second-Hand Smoke: No caffeine: Yes (tea and coffee) Dental Care, Regularly: Yes Physical Activity Frequency: Daily Seatbelt Use: always Sunscreen Use: Yes Do you think of yourself as: straight/heterosexual Allergies Allergies Allergy/AdvReac Type Severity Reaction Status Date / Time diclofenac Allergy Intermediate ITCHING Verified 11/01/19 11:25 WITH NAUSEA dicloxacillin Allergy Intermediate ITCHING Verified 11/01/19 11:25 WITH NAUSEA levofloxacin Allergy Intermediate ITCHING Verified 11/01/19 11:25 WITH NAUSEA naproxen Allergy Intermediate ITCHING Verified 11/01/19 11:25 WITH NAUSEA Penicillins Allergy Intermediate Hives Verified 11/01/19 11:25 risedronate sodium Allergy Intermediate ITCHING Verified 11/01/19 11:25 [From Actone] AND NAUSEA Home Meds Home Medications Medication Instructions Recorded Confirmed rosuvastatin 20 mg tablet 20 mg PO HS tab 02/12/19 11/01/19 budesonide 1 mg INH QID PRN 09/22/19 11/01/19 dexamethasone 4 mg PO UD 10/22/19 11/01/19 olanzapine 2.5 mg PO UD 10/22/19 11/01/19 ondansetron 8 mg PO Q12H PRN 10/22/19 11/01/19 prochlorperazine maleate 10 mg PO Q8H PRN 10/22/19 11/01/19 Oxygen Home 10/27/19 10/27/19 Spiriva with HandiHaler 1 cap INH QAM 11/01/19 11/01/19 acetaminophen [Tylenol Extra 500 mg PO Q6H PRN 11/01/19 11/01/19 Strength] aspirin 81 mg PO HS 11/01/19 11/01/19 calcium carbonate [Calcium 500] 500 mg PO QDL 11/01/19 11/01/19 furosemide 40 mg PO QDL 11/01/19 11/01/19 metoprolol succinate 12.5 mg PO HS 11/01/19 11/01/19 multivitamin [Daily Multi-Vitamin] 1 tab PO QDL 11/01/19 11/01/19 omeprazole 40 mg PO QAM 11/01/19 11/01/19 sertraline [Zoloft] 50 mg PO QAM 11/01/19 11/01/19 tizanidine 1 mg PO TID PRN 11/01/19 11/01/19 Previous Rx's Medication Instructions Recorded nitroglycerin 0.4 mg sublingual 0.4 mg SL Q5M #30 tab 11/13/18 tablet chlorhexidine gluconate 0.12 % 15 ml BUCCAL BID #1500 ml 04/20/19 mouthwash cholecalciferol (vitamin D3) 50 2,000 units PO BID #30 tab 04/20/19 mcg (2,000 unit) tablet gabapentin 300 mg capsule 300 mg PO QID #120 cap 08/16/19 gabapentin 100 mg capsule 100 mg PO HS #90 cap 09/01/19 hydrocodone 5 mg-acetaminophen 325 1 tab PO Q6H PRN #120 tab 10/08/19 mg tablet albuterol sulfate 90 mcg/actuation 2 puffs INHALATION Q4H PRN #18 gm 10/12/19 aerosol inhaler humidification for oxygen #1 ea 10/22/19 Results & Data (ED) Vital Signs Vital Signs - 24 hr 11/01/19 10:24 11/01/19 10:36 11/01/19 10:42 Temperature 37 C Temperature Source Oral Pulse Rate 86 104 H Pulse Rate [Apical] Pulse Rate from SpO2 Sensor 104 H Pulse Rhythm [Apical] Respiratory Rate 18 26 H Respiratory Effort / Characteristics Non-Labored Spontaneous Respiratory Depth Normal Normal Respiratory Pattern Regular Regular Blood Pressure 102/56 L 123/66 Blood Pressure [Right Arm] Blood Pressure Mean 71 84 Blood Pressure Mean [Right Arm] Blood Pressure Position Sitting Pulse Oximetry 100 100 Oxygen Delivery Method Nasal Cannula Nasal Cannula Nasal Cannula Oxygen Flow Rate 4 3 3 Sepsis Recent Fever Within 48 Hours Yes Sepsis New/Unexplained Change in Mental Status No Sepsis Action Taken by Nursing No Action Required 11/01/19 10:43 11/01/19 11:12 11/01/19 11:13 Temperature 37.6 C H Temperature Source Oral Pulse Rate 82 Pulse Rate [Apical] Pulse Rate from SpO2 Sensor Pulse Rhythm [Apical] Respiratory Rate 28 H Respiratory Effort / Characteristics Respiratory Depth Respiratory Pattern Blood Pressure 128/62 Blood Pressure [Right Arm] Blood Pressure Mean 74 Blood Pressure Mean [Right Arm] Blood Pressure Position Pulse Oximetry 94 95 Oxygen Delivery Method Nasal Cannula Nasal Cannula Oxygen Flow Rate 3 3 Sepsis Recent Fever Within 48 Hours Sepsis New/Unexplained Change in Mental Status Sepsis Action Taken by Nursing 11/01/19 11:15 11/01/19 11:42 11/01/19 11:45 Temperature Temperature Source Pulse Rate 85 88 89 Pulse Rate [Apical] Pulse Rate from SpO2 Sensor 86 89 91 H Pulse Rhythm [Apical] Respiratory Rate 21 24 32 H Respiratory Effort / Characteristics Respiratory Depth Respiratory Pattern Blood Pressure 125/58 L 109/56 L 97/37 L Blood Pressure [Right Arm] Blood Pressure Mean 85 64 65 Blood Pressure Mean [Right Arm] Blood Pressure Position Pulse Oximetry 99 98 96 Oxygen Delivery Method Nasal Cannula Nasal Cannula Oxygen Flow Rate 3 3 Sepsis Recent Fever Within 48 Hours Sepsis New/Unexplained Change in Mental Status Sepsis Action Taken by Nursing 11/01/19 11:46 11/01/19 11:47 11/01/19 12:00 Temperature Temperature Source Pulse Rate 91 H 89 Pulse Rate [Apical] 92 H Pulse Rate from SpO2 Sensor 89 89 Pulse Rhythm [Apical] Regular Respiratory Rate 25 H 23 30 H Respiratory Effort / Characteristics Respiratory Depth Normal Respiratory Pattern Blood Pressure 89/41 L Blood Pressure [Right Arm] 97/37 L Blood Pressure Mean 58 Blood Pressure Mean [Right Arm] 57 Blood Pressure Position Pulse Oximetry 97 99 97 Oxygen Delivery Method Nasal Cannula Oxygen Flow Rate 3 Sepsis Recent Fever Within 48 Hours Sepsis New/Unexplained Change in Mental Status Sepsis Action Taken by Nursing 11/01/19 12:01 11/01/19 12:15 11/01/19 12:16 Temperature Temperature Source Pulse Rate 89 87 88 Pulse Rate [Apical] Pulse Rate from SpO2 Sensor 89 132 H 93 H Pulse Rhythm [Apical] Respiratory Rate 26 H 20 25 H Respiratory Effort / Characteristics Respiratory Depth Respiratory Pattern Blood Pressure 92/39 L Blood Pressure [Right Arm] Blood Pressure Mean 57 Blood Pressure Mean [Right Arm] Blood Pressure Position Pulse Oximetry 97 95 95 Oxygen Delivery Method Oxygen Flow Rate Sepsis Recent Fever Within 48 Hours Sepsis New/Unexplained Change in Mental Status Sepsis Action Taken by Nursing Laboratory Data Attestation: I reviewed the patient's lab results. Result diagrams: 11/01/19 11:10 11/01/19 11:10 Lab Results 11/01/19 11/01/19 11/01/19 Range/Units 11:10 11:10 11:10 WBC 1.81 L (4.8-10.8) K/uL RBC 3.43 L (4.2-5.4) M/uL Hgb 9.0 L (12.0-16.0) g/dL POC Hgb (12.0-16.0) g/dl Hct 28.5 L (37-47) % POC Hct (37-47) % MCV 83.1 (80-100) fL MCH 26.2 (25-34) pg MCHC 31.6 L (32-36) g/dL RDW Std Deviation 54.2 H (36.4-46.3) fL RDW Coeff of Jj 17.9 H (11.5-14.5) % Plt Count 136 (130-400) K/uL MPV 10.1 (7.4-10.4) fL Absolute Nucleated RBC 0.02 H (0-0) K/uL Nucleated RBC % (auto) 1.3 % PT 13.7 H (9.0-12.0) Seconds INR 1.3 H (0.9-1.1) APTT 35.2 H (21.0-31.0) Seconds PTT Ratio 1.3 VBG pH (7.36-7.41) VBG pCO2 (38-50) mmHg VBG pO2 mmHg VBG HCO3 mmol/L VBG O2 Saturation % VBG Base Excess mEq/L Barometric Pressure mm/Hg POC Sodium (135-144) mmol/L Sodium 132 L (136-145) mmol/L POC Potassium (3.3-5.0) mmol/L Potassium 3.4 L (3.5-5.1) mmol/L POC Chloride (101-112) mmol/L Chloride 94 L (98-107) mmol/L Carbon Dioxide 30 (21-32) mmol/L POC Total CO2 (24-31) mmol/L Anion Gap 9.0 (3-11) POC Anion Gap (16-25) mmol/L POC BUN (7-18) mg/dl BUN 11 (7-18) mg/dl Creatinine 0.53 L (0.6-1.2) mg/dl POC Creatinine (0.6-1.3) mg/dl Est Cr Clr Drug Dosing 63.6 ml/min Est GFR ( Amer) 101.8 Est GFR (Non-Af Amer) 87.8 BUN/Creatinine Ratio 21.3 H (10-20) Glucose 78 (70-99) mg/dl POC Glucose (other) (70-99) mg/dl Lactate (0.4-2.0) mmol/L Calcium 8.8 (8.5-10.1) mg/dl POC Ioniz Calcium Kedar (1.12-1.32) mmol/l Magnesium 1.6 L (1.8-2.4) mg/dl Total Bilirubin 0.4 (0.2-1) mg/dl AST 26 (15-37) U/L ALT 35 (12-78) U/L Alkaline Phosphatase 112 (45-117) U/L Troponin I < 0.015 (0-0.045) ng/ml Total Protein 6.9 (6.4-8.2) gm/dl Albumin 2.4 L (3.4-5.0) gm/dl Globulin 4.5 H (2.5-4.0) gm/dl Albumin/Globulin Ratio 0.5 L (0.9-2) Procalcitonin (0-0.5) ng/ml 11/01/19 11/01/19 11/01/19 Range/Units 11:10 11:10 11:10 WBC (4.8-10.8) K/uL RBC (4.2-5.4) M/uL Hgb (12.0-16.0) g/dL POC Hgb (12.0-16.0) g/dl Hct (37-47) % POC Hct (37-47) % MCV (80-100) fL MCH (25-34) pg MCHC (32-36) g/dL RDW Std Deviation (36.4-46.3) fL RDW Coeff of Jj (11.5-14.5) % Plt Count (130-400) K/uL MPV (7.4-10.4) fL Absolute Nucleated RBC (0-0) K/uL Nucleated RBC % (auto) % PT (9.0-12.0) Seconds INR (0.9-1.1) APTT (21.0-31.0) Seconds PTT Ratio VBG pH 7.40 (7.36-7.41) VBG pCO2 56 H (38-50) mmHg VBG pO2 27 mmHg VBG HCO3 34 mmol/L VBG O2 Saturation < 60.0 % VBG Base Excess 7.9 mEq/L Barometric Pressure 731.0 mm/Hg POC Sodium (135-144) mmol/L Sodium (136-145) mmol/L POC Potassium (3.3-5.0) mmol/L Potassium (3.5-5.1) mmol/L POC Chloride (101-112) mmol/L Chloride (98-107) mmol/L Carbon Dioxide (21-32) mmol/L POC Total CO2 (24-31) mmol/L Anion Gap (3-11) POC Anion Gap (16-25) mmol/L POC BUN (7-18) mg/dl BUN (7-18) mg/dl Creatinine (0.6-1.2) mg/dl POC Creatinine (0.6-1.3) mg/dl Est Cr Clr Drug Dosing ml/min Est GFR ( Amer) Est GFR (Non-Af Amer) BUN/Creatinine Ratio (10-20) Glucose (70-99) mg/dl POC Glucose (other) (70-99) mg/dl Lactate 2.0 (0.4-2.0) mmol/L Calcium (8.5-10.1) mg/dl POC Ioniz Calcium Kedar (1.12-1.32) mmol/l Magnesium (1.8-2.4) mg/dl Total Bilirubin (0.2-1) mg/dl AST (15-37) U/L ALT (12-78) U/L Alkaline Phosphatase (45-117) U/L Troponin I (0-0.045) ng/ml Total Protein (6.4-8.2) gm/dl Albumin (3.4-5.0) gm/dl Globulin (2.5-4.0) gm/dl Albumin/Globulin Ratio (0.9-2) Procalcitonin 0.87 H (0-0.5) ng/ml 11/01/19 Range/Units 11:10 WBC (4.8-10.8) K/uL RBC (4.2-5.4) M/uL Hgb (12.0-16.0) g/dL POC Hgb 9.9 L (12.0-16.0) g/dl Hct (37-47) % POC Hct 29 L (37-47) % MCV (80-100) fL MCH (25-34) pg MCHC (32-36) g/dL RDW Std Deviation (36.4-46.3) fL RDW Coeff of Jj (11.5-14.5) % Plt Count (130-400) K/uL MPV (7.4-10.4) fL Absolute Nucleated RBC (0-0) K/uL Nucleated RBC % (auto) % PT (9.0-12.0) Seconds INR (0.9-1.1) APTT (21.0-31.0) Seconds PTT Ratio VBG pH (7.36-7.41) VBG pCO2 (38-50) mmHg VBG pO2 mmHg VBG HCO3 mmol/L VBG O2 Saturation % VBG Base Excess mEq/L Barometric Pressure mm/Hg POC Sodium 132 L (135-144) mmol/L Sodium (136-145) mmol/L POC Potassium 3.5 (3.3-5.0) mmol/L Potassium (3.5-5.1) mmol/L POC Chloride 88 L (101-112) mmol/L Chloride (98-107) mmol/L Carbon Dioxide (21-32) mmol/L POC Total CO2 31 (24-31) mmol/L Anion Gap (3-11) POC Anion Gap 18.0 (16-25) mmol/L POC BUN 12 (7-18) mg/dl BUN (7-18) mg/dl Creatinine (0.6-1.2) mg/dl POC Creatinine 0.6 (0.6-1.3) mg/dl Est Cr Clr Drug Dosing ml/min Est GFR ( Amer) Est GFR (Non-Af Amer) BUN/Creatinine Ratio (10-20) Glucose (70-99) mg/dl POC Glucose (other) 85 (70-99) mg/dl Lactate (0.4-2.0) mmol/L Calcium (8.5-10.1) mg/dl POC Ioniz Calcium Kedar 1.14 (1.12-1.32) mmol/l Magnesium (1.8-2.4) mg/dl Total Bilirubin (0.2-1) mg/dl AST (15-37) U/L ALT (12-78) U/L Alkaline Phosphatase (45-117) U/L Troponin I (0-0.045) ng/ml Total Protein (6.4-8.2) gm/dl Albumin (3.4-5.0) gm/dl Globulin (2.5-4.0) gm/dl Albumin/Globulin Ratio (0.9-2) Procalcitonin (0-0.5) ng/ml Administered Medications Sodium Chloride (Nss 1000ml) 1,000 mls @ 999 mls/hr IV .Q1H1M ONE Stop: 11/01/19 12:59 Last Admin: 11/01/19 12:15 Dose: 999 mls/hr Documented by: [id number] Magnesium Sulfate/Dextrose (Magnesium Sulfate / D5w) 1 gm in 100 mls @ 100 mls/hr IV ONE ONE Stop: 11/01/19 13:32 Last Admin: 11/01/19 12:42 Dose: 100 mls/hr Documented by: [id number] Ioversol (Optiray 320 125ml) 119 ml IV ONCE PRN PRN Reason: Interaction Checking Stop: 11/05/19 11:38 Last Admin: 11/01/19 11:40 Dose: 119 ml Documented by: [id number] Discontinued Medications Sodium Chloride (Nss 1000ml) 1,000 mls @ 999 mls/hr IV .Q1H1M ONE Stop: 11/01/19 11:43 Last Infusion: 11/01/19 12:08 Dose: 0 mls/hr Documented by: [id number] Admin: 11/01/19 11:03 Dose: 999 mls/hr Documented by: [id number] Cefepime HCl (Maxipime) 2,000 mg in 20 mls @ 5 mls/min IV NOW STA; Protocol Stop: 11/01/19 12:02 Last Admin: 11/01/19 12:15 Dose: 5 mls/min Documented by: [id number] Imaging Data Radiologist's Impression: SINGLE VIEW CHEST CLINICAL HISTORY: Sepsis. FINDINGS: An AP, portable, upright chest radiograph is compared to study dated 10/27/2019 and correlated with chest CT dated 09/22/2019. The examination is degraded by portable technique and patient rotation. The cardiac silhouette is not well assessed. There is atherosclerotic calcification of the thoracic aorta. The pulmonary vasculature is noncongested. Chronic interstitial thickening is similar to previous. Significant atelectasis of the left upper lobe persists. There is a left pleural effusion with consolidation in the left lower lung. Scarring/atelectasis is noted the right lung base. There is no pneumothorax. The skeletal structures are osteopenic. The bony thorax appears intact. An in trathecal lead projects over the mid thoracic spine. IMPRESSION: 1. Left pleural effusion with associated left basilar consolidation. 2. Significant left upper lobe atelectasis persists. ACT 112: Negative or not required by law. Electronically signed by: Orville Duque M.D. 11/01/2019 11:55 AM Dictated: 11/01/19 1153 Transcribed: 11/01/[address] ANGIOGRAM OF THE CHEST CLINICAL HISTORY: Severe shortness of breath. Possible pulmonary embolism. COMPARISON STUDY: Chest CT dated 09/22/2019 TECHNIQUE: Following the IV administration of 119 mL of [id number]-320, CT angiogram of the thorax was performed from the thoracic inlet to the lung bases utilizing the pulmonary embolus protocol. Images are reviewed in the axial, sagittal, and coronal planes. IV contrast was administered without complication. MIP imaging was performed. A dose lowering technique was utilized adhering to t he principles of ALARA. CT DOSE: 260.41 mGy.cm FINDINGS: There is interval decrease in the size of the left hilar and mediastinal mass. The left upper lobe bronchus remains occluded with persistent left upper lobe consolidation/collapse. There was no evidence of thoracic aortic dilatation. There are no pulmonary artery filling defects to indicate acute pulmonary embolism. There is a small left pleural effusion which appears smaller than on the preceding examination There is left upper lobe atelectasis/consolidation. There is stable right apical scarring. There is persistent soft tissue encasement of proximal left lower lobe bronchi. There is mild right lower lobe bronchial wall thickening. There are tree-in-bud opacities within the right middle lobe, likely infectious/inflammatory The examination is motion degraded IMPRESSION: 1. Motion degraded study 2. No evidence of acute pulmonary embolism 3. Interval decrease in size of the left hilar and mediastinal mass with persistent occlusion of the left upper lobe bronchus and secondary left upper lobe atelectasis/consolidation. 4. Small left pleural effusion 5. Right middle lobe tree-in-bud opacities, likely infectious/inflammatory ACT 112: Negative or not required by law. Electronically signed by: Jose Fisher M.D. 11/01/2019 11:52 AM Dictated: 11/01/19 1146 Transcribed: 11/01/19 1146 Blood Pressure Blood Pressure Findings: Low blood pressure Discharge Plan Visit Data Chief Complaint: Respiratory Distress Stated Complaint: HAVING TROUBLE BREATHING, PAIN IN PORT ED Provider: Goyo Riley Discharge Problem: Neutropenia with fever, Pneumonia Patient Disposition: Being Evaluated by Hospitalist Condition: Good Forms Stand Alone Forms: My [employer] Prescriptions Prescriptions: No Action chlorhexidine gluconate 0.12 % mouthwash 15 ml BUCCAL BID Qty: 1500 RF: 0 cholecalciferol (vitamin D3) 2,000 unit tablet 2,000 units PO BID Qty: 30 RF: 0 gabapentin 300 mg capsule 300 mg PO QID Qty: 120 RF: 3 gabapentin 100 mg capsule 100 mg PO HS Qty: 90 RF: 0 (DME) humidification for oxygen Qty: 1 RF: 0 nitroglycerin 0.4 mg tablet, sublingual 0.4 mg SL Q5M Qty: 30 RF: 0 albuterol sulfate 90 mcg/actuation HFA aerosol inhaler 2 puffs inhalation Q4H PRN (Reason: Shortness Of Breath Or Wheezing) Qty: 18 RF: 2 hydrocodone-acetaminophen 5-325 mg tablet 1 tab PO Q6H PRN (Reason: pain) Qty: 120 RF: 0 rosuvastatin 20 mg tablet 20 mg PO HS RF: 0 budesonide 1 mg/2 mL suspension for nebulization 1 mg INH QID PRN (Reason: SHORT OF BREATH) RF: 0 tizanidine 2 mg tablet 1 mg PO TID PRN (Reason: Muscle Spasticity) RF: 0 acetaminophen [Tylenol Extra Strength] 500 mg Tablet 500 mg PO Q6H PRN (Reason: Pain) RF: 0 calcium carbonate [Calcium 500] 500 mg calcium (1,250 mg) Tablet 500 mg PO QDL RF: 0 multivitamin [Daily Multi-Vitamin] tablet 1 tab PO QDL RF: 0 furosemide 40 mg tablet 40 mg PO QDL RF: 0 omeprazole 40 mg capsule,delayed release(DR/EC) 40 mg PO QAM RF: 0 aspirin 81 mg tablet,delayed release (DR/EC) 81 mg PO HS RF: 0 metoprolol succinate 25 mg tablet extended release 24 hr 12.5 mg PO HS RF: 0 sertraline [Zoloft] 50 mg tablet 50 mg PO QAM RF: 0 Spiriva with HandiHaler 18 mcg capsule, w/inhalation device 1 cap INH QAM RF: 0 prochlorperazine maleate 10 mg Tablet 10 mg PO Q8H PRN (Reason: Nausea) RF: 0 olanzapine 2.5 mg Tablet 2.5 mg PO UD RF: 0 ondansetron 8 mg Tablet,Disintegrating 8 mg PO Q12H PRN (Reason: Nausea) RF: 0 dexamethasone 4 mg Tablet 4 mg PO UD RF: 0 (DME) Oxygen Home Liters Per Minute RF: 0 Referrals Referrals: Rolo Ron DO [Primary Care Provider] -
[2019-11-01 11:22] LABS: iSTAT Creatinine 0.6 mg/dl (0.6-1.3); iSTAT Hemoglobin 9.9 g/dl (12.0-16.0); iSTAT Ionized Calcium 1.14 mmol/l (1.12-1.32); iSTAT Potassium 3.5 mmol/L (3.3-5.0)
[2019-11-01 11:26] LABS: Hematocrit (blood only) 28.5 % (37-47); Mean Corpuscular Hemoglobin 26.2 pg (25-34); Mean Corpuscular Hgb Conc 31.6 g/dL (32-36); Mean Corpuscular Volume 83.1 fL (80-100); Mean Platelet Volume 10.1 fL (7.4-10.4); Nucleated RBC # (auto) 0.02 K/uL (0-0); Nucleated RBC % (auto) 1.3 %; Platelet Count 136 K/uL (130-400); RDW Coefficient of Variation 17.9 % (11.5-14.5); RDW Standard Deviation 54.2 fL (36.4-46.3); Red Blood Count 3.43 M/uL (4.2-5.4); White Blood Count 1.81 K/uL (4.8-10.8)
[2019-11-01 11:33] LABS: Base Excess VBG 7.9 mEq/L; HCO3 VBG 34 mmol/L; Oxygen Saturation VBG < 60.0 %; PCO2 VBG 56 mmHg (38-50); PO2 VBG 27 mmHg
[2019-11-01 11:37] LABS: INR 1.3 (0.9-1.1); Partial Thromboplastin Ratio 1.3; Partial Thromboplastin Time 35.2 Seconds (21.0-31.0); Prothrombin Time 13.7 Seconds (9.0-12.0)
[2019-11-01] MEDS ORDERED: OPTIRAY 320 125ml IV PRN (11:39)
--- NOTE | 2019-11-01 11:49 | Electrocardiogram Report ---
Test Reason : Blood Pressure : / mmHG Vent. Rate : 104 BPM Atrial Rate : 104 BPM P-R Int : 192 ms QRS Dur : 084 ms QT Int : 308 ms P-R-T Axes : 094 105 -31 degrees QTc Int : 405 ms Sinus tachycardia with Premature atrial complexes Possible Left atrial enlargement Rightward axis T wave abnormality, consider inferior ischemia Abnormal ECG When compared with ECG of 27-SEP-2019 15:32, Sinus rhythm has replaced Atrial fibrillation Nonspecific T wave abnormality now evident in Anterior leads Confirmed by Goyo Arzate ([id number]) on 11/01/2019 11:49:08 AM Referred By: REFERRED SELF Confirmed By:Goyo Arzate
[2019-11-01 11:53] LABS: Alanine Aminotransferase 35 U/L (12-78); Albumin Level 2.4 gm/dl (3.4-5.0); Aspartate Aminotransferase 26 U/L (15-37); BUN Creatinine Ratio 21.3 (10-20); Blood Urea Nitrogen 11 mg/dl (7-18); Calcium 8.8 mg/dl (8.5-10.1); Carbon Dioxide 30 mmol/L (21-32); Chloride 94 mmol/L (98-107); Creatinine Clr Calc Pharmacy 63.6 ml/min; Est GFR (African American) 101.8; Est GFR (Non-African American) 87.8; Glucose 78 mg/dl (70-99); Magnesium 1.6 mg/dl (1.8-2.4); Potassium 3.4 mmol/L (3.5-5.1); Sodium 132 mmol/L (136-145)
--- NOTE | 2019-11-01 11:54 | CT Scan Report ---
CT ANGIOGRAM OF THE CHEST CLINICAL HISTORY: Severe shortness of breath. Possible pulmonary embolism. COMPARISON STUDY: Chest CT dated 09/22/2019 TECHNIQUE: Following the IV administration of 119 mL of Optiray-320, CT angiogram of the thorax was p erformed from the thoracic inlet to the lung bases utilizing the pulmonary embolus protocol. Images a re reviewed in the axial, sagittal, and coronal planes. IV contrast was administered without complica tion. MIP imaging was performed. A dose lowering technique was utilized adhering to the principles o f ALARA. CT DOSE: 260.41 mGy.cm FINDINGS: There is interval decrease in the size of the left hilar and mediastinal mass. The left upper lobe br onchus remains occluded with persistent left upper lobe consolidation/collapse. There was no evidence of thoracic aortic dilatation. There are no pulmonary artery filling defects to indicate acute pulmonary embolism. There is a small left pleural effusion which appears smaller than on the preceding examination There is left upper lobe atelectasis/consolidation. There is stable right apical scarring. There is p ersistent soft tissue encasement of proximal left lower lobe bronchi. There is mild right lower lobe bronchial wall thickening. There are tree-in-bud opacities within the right middle lobe, likely infec tious/inflammatory The examination is motion degraded IMPRESSION: 1. Motion degraded study 2. No evidence of acute pulmonary embolism 3. Interval decrease in size of the left hilar and mediastinal mass with persistent occlusion of the left upper lobe bronchus and secondary left upper lobe atelectasis/consolidation. 4. Small left pleural effusion 5. Right middle lobe tree-in-bud opacities, likely infectious/inflammatory ACT 112: Negative or not required by law. Electronically signed by: Jose Fisher M.D. 11/01/2019 11:52 AM
--- NOTE | 2019-11-01 11:56 | XRay Report ---
SINGLE VIEW CHEST CLINICAL HISTORY: Sepsis. FINDINGS: An AP, portable, upright chest radiograph is compared to study dated 10/27/2019 and correlat ed with chest CT dated 09/22/2019. The examination is degraded by portable technique and patient rotat ion. The cardiac silhouette is not well assessed. There is atherosclerotic calcification of the thora cic aorta. The pulmonary vasculature is noncongested. Chronic interstitial thickening is similar to p revious. Significant atelectasis of the left upper lobe persists. There is a left pleural effusion wi th consolidation in the left lower lung. Scarring/atelectasis is noted the right lung base. There is no pneumothorax. The skeletal structures are osteopenic. The bony thorax appears intact. An intrathec al lead projects over the mid thoracic spine. IMPRESSION: 1. Left pleural effusion with associated left basilar consolidation. 2. Significant left upper lobe atelectasis persists. ACT 112: Negative or not required by law. Electronically signed by: Orville Duque M.D. 11/01/2019 11:55 AM
[2019-11-01 11:58] LABS: Albumin Globulin Ratio 0.5 (0.9-2); Alkaline Phosphatase 112 U/L (45-117); Bilirubin,Total 0.4 mg/dl (0.2-1); Globulin 4.5 gm/dl (2.5-4.0); Total Protein 6.9 gm/dl (6.4-8.2); Troponin I < 0.015 ng/ml (0-0.045)
[2019-11-01] MEDS ORDERED: CEFEPIME 2,000 MG/20 ML VIAL IV STA (11:59)
[2019-11-01] MEDS ORDERED: MAGNESIUM SULFATE / D5W 1 GM/100 ML BAG IV ONE (12:33)
[2019-11-01] MEDS ORDERED: VANCOMYCIN CONSULT ACTIVE PRN (12:35)
[2019-11-01] MEDS ORDERED: VANCOMYCIN HCL 1,000 MG in SODIUM CHLORIDE 0.9% 500 ML IV ONE (12:35)
[2019-11-01] MEDS ORDERED: AZITHROMYCIN 500 MG in DEXTROSE 5% 250 ML IV STA (12:36)
[2019-11-01 13:08] LABS: ALC (manual) 1.39 K/uL (1.2-3.4); ANC (manual) 0.05 K/uL (1.4-6.5); Acanthocytes 1+; Basophils # (manual) 0.04 K/uL (0-0.2); Blast # (manual) 0.05 K/uL (0-0); Dohle Bodies 1+; Howell-Jolly Bodies Occasional; Lymphocytes # (manual) 1.39 K/uL (1.2-3.4); Monocytes # (manual) 0.27 K/uL (0.11-0.59); Neutrophils # (manual) 0.05 K/uL (1.4-6.5); Toxic Granulation 1+
--- NOTE | 2019-11-01 13:24 | History & Physical Report ---
Date of Service November 01, 2019 Assessment & Plan (1) Neutropenia with fever: Discussed with Dr Bermeo. Neupogen 300 mcg SQ Now, then tomorrow and reassess. At sonali for chemotherapy treatment and expect improvement. Suspected fever source PNA as below. (2) Pancytopenia due to antineoplastic chemotherapy: Neupogen as above Repeat CBC in a.m. (3) Pneumonia: Healthcare-associated PNA given recently hospitalization in immunocompromised adult Recent bronhial washing with pansensitive pseudomonas therefore need to cover for this, single coverage as patient not currently septic Procalcitonin and CT findings consistent with PNA as source for fever Rx vancomycin, cefepime and azithromycin in ER MRSA swab - if negative can discontinue vancomycin COVID-19 swab negative Incentive spirometry (4) COPD (chronic obstructive pulmonary disease): Without current exacerbation. 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 Started on chemotherapy carboplatin, etoposide, atezolizumab October 19, 2019. Port placement October 27, 2019 (8) CAD (coronary artery disease): STEMI in 2016 s/p x3 bare metal stents to RCA 02/2016 Continue ASA, metoprolol, rosuvastatin (9) DVT prophylaxis: Lovenox 30 mg subcutaneous at bedtime Admission and Anticipated Discharge Date Admission Date: November 01, 2019 History of Present Illness Chief Complaint: Fever, fatigue and general weakness Primary Care Provider: DO Key Cortés is an 84-year-old female with metastatic small cell lung cancer who presents to the ER due to fever, increasing fatigue and general weakness over the last 24 hours. She had a recent port placement on October 27, 2019. Last chemotherapy 11 days ago. Generally felt unwell yesterday with increasing fatigue and generalized weakness. Last evening started having chills with subjective fever of 102.5 F last night. Mild increased shortness of breath today, no chest pain. Loss of taste since starting chemotherapy 3 weeks ago. No change in smell. Also notes loss of voice present prior to chemotherapy but worse afterwards. Not currently receiving radiation. In the ER she had a CT scan showing right middle lobe tree-in-bud opacities concerning for pneumonia. Procalcitonin was elevated and she was started on cefepime. Allergies Allergy/AdvReac Type Severity Reaction Status Date / Time diclofenac Allergy Intermediate ITCHING Verified 11/01/19 11:25 WITH NAUSEA dicloxacillin Allergy Intermediate ITCHING Verified 11/01/19 11:25 WITH NAUSEA levofloxacin Allergy Intermediate ITCHING Verified 11/01/19 11:25 WITH NAUSEA naproxen Allergy Intermediate ITCHING Verified 11/01/19 11:25 WITH NAUSEA Penicillins Allergy Intermediate Hives Verified 11/01/19 11:25 risedronate sodium Allergy Intermediate ITCHING Verified 11/01/19 11:25 [From Actonel] AND NAUSEA Home Medications Home Medications Medication Instructions Recorded Confirmed Type nitroglycerin 0.4 mg sublingual 0.4 mg SL Q5M #30 tab 11/13/18 11/01/19 Rx tablet rosuvastatin 20 mg tablet 20 mg PO HS tab 02/12/19 11/01/19 History chlorhexidine gluconate 0.12 % 15 ml BUCCAL BID #1500 ml 04/20/19 11/01/19 Rx mouthwash cholecalciferol (vitamin D3) 50 2,000 units PO BID #30 tab 04/20/19 11/01/19 Rx mcg (2,000 unit) tablet gabapentin 300 mg capsule 300 mg PO QID #120 cap 08/16/19 11/01/19 Rx gabapentin 100 mg capsule 100 mg PO HS #90 cap 09/01/19 11/01/19 Rx budesonide 1 mg INH QID PRN 09/22/19 11/01/19 History hydrocodone 5 mg-acetaminophen 325 1 tab PO Q6H PRN #120 tab 10/08/19 11/01/19 Rx mg tablet albuterol sulfate 90 mcg/actuation 2 puffs INHALATION Q4H PRN #18 gm 10/12/19 11/01/19 Rx aerosol inhaler dexamethasone 4 mg PO UD 10/22/19 11/01/19 History humidification for oxygen #1 ea 10/22/19 Rx olanzapine 2.5 mg PO UD 10/22/19 11/01/19 History ondansetron 8 mg PO Q12H PRN 10/22/19 11/01/19 History prochlorperazine maleate 10 mg PO Q8H PRN 10/22/19 11/01/19 History Oxygen Home 10/27/19 10/27/19 History Spiriva with HandiHaler 1 cap INH QAM 11/01/19 11/01/19 History acetaminophen [Tylenol Extra 500 mg PO Q6H PRN 11/01/19 11/01/19 History Strength] aspirin 81 mg PO HS 11/01/19 11/01/19 History calcium carbonate [Calcium 500] 500 mg PO QDL 11/01/19 11/01/19 History furosemide 40 mg PO QDL 11/01/19 11/01/19 History metoprolol succinate 12.5 mg PO HS 11/01/19 11/01/19 History multivitamin [Daily Multi-Vitamin] 1 tab PO QDL 11/01/19 11/01/19 History omeprazole 40 mg PO QAM 11/01/19 11/01/19 History sertraline [Zoloft] 50 mg PO QAM 11/01/19 11/01/19 History tizanidine 1 mg PO TID PRN 11/01/19 11/01/19 History Past Med/Surg History Medical History Acid reflux Acquired lymphocytosis Anemia Arthritis CAD (coronary artery disease) s/p three BMS's to RCA in 2015 COPD (chronic obstructive pulmonary disease) History of atrial fibrillation FOLLLOWED BY YVETTE KENNY (CEIBA)- NO AC- H/O SUBDURAL HEMATOMA History of AK (myocardial infarction) 2016 History of TIA (transient ischemic attack) LAST EVENT OVER 5 YEARS AGO Hyperlipidemia Lumbar disc disease On home oxygen therapy WEARS 2-3L CONT. Pleural effusion on left Monitored by pulm- not causing acute distress- thoracentesis not needed at this time. Pulmonary hypertension Situational depression Small cell lung cancer, overlapping sites of left lung NEW DX Spinal cord stimulator status IMPLANTED 2012 (ENCOURAGED TO BRING REMOTE IN AND PAPERWORK) Vitamin D deficiency Surgical History History of anesthesia reaction "TROUBLE BREATHING" History of appendectomy History of bronchoscopy History of cataract surgery RT/LEFT History of cholecystectomy History of colonoscopy History of esophagogastroduodenoscopy (EGD) History of facial surgery FELL 2019 ("FRACTURE OF FACE") HARDWARE/SCREWS INTACT History of heart artery stent 2016 (3 STENTS PLACED) TAJ CM History of inguinal hernia repair History of splenectomy 2004 History of tooth extraction Family History Mother Hypertension Brother Gallbladder disease Denies family history of Ovarian cancer Prostate cancer Myocardial infarction Breast cancer Colorectal cancer Social History Preferred Language: Persian Visual Impairment: Limited Hearing Ability: Normal Associate Accountant Required: No Beliefs That Will Affect Care: Restoration Restoration Beliefs: METH marital status: Current Living Situation: Alone current occupational status: retired Other Information That Helps Us Care for You: No Feels Safe at Home: Yes Smoking Status: Former smoker Tobacco Type: cigarettes ; Age Started Using Tobacco: 20 ; Age Quit Using Tobacco: 71 ; packs per day: 0.25 ; Cigarettes Per Day: 2016 ; Second Hand Exposure: No ; Hx Alcohol Use: No Hx Substance Use: No Childhood Exposure to Second-Hand Smoke: No caffeine: Yes (tea and coffee) Dental Care, Regularly: Yes Physical Activity Frequency: Daily Seatbelt Use: always Sunscreen Use: Yes Do you think of yourself as: straight/heterosexual Review of Systems Review of Systems: All systems reviewed & are unremarkable except as noted in HPI & below Physical Exam Constitutional: well developed and + frail appearing; + not well nourished and no acute distress Eyes: + anicteric sclerae; normal pupil size ENMT: Ears: no external ear abnormality Nose: no external nose abnormality Mouth: + dry oral mucous membranes Neck: normal visual inspection and trachea midline Respiratory: Auscultation: + diminished lung sounds (Bilaterally L > R) and + crackles (Throughout); no wheezes Cardiovascular: Rate/Rhythm: regular rhythm and + tachycardic Heart Sounds: no murmur Vessels: no JVD Extremities: normal capillary refill; no calf tenderness and no pedal edema Gastrointestinal (Abdomen): normal bowel sounds, soft, nontender, no hepatosplenomegaly Musculoskeletal: no cyanosis or clubbing, extremities motor strength 5/5 Skin: no rashes, warm and dry Neurologic: moves all extremities and awake; no focal motor deficits (Grossly normal) and not confused Speech / Cognition: normal speech Psychiatric: A+Ox3, euthymic affect Lymphatic: no cervical or axillary lymphadenopathy Results & Data Results & [facility] ([facility]) Vital Signs (Past 12 Hours) Vital Signs Temp Pulse Pulse Resp BP BP Pulse Ox 11/01/19 12:45 89 26 H 96/41 L 93 11/01/19 12:30 90 26 H 93/41 L 93 11/01/19 12:16 88 25 H 95 11/01/19 12:15 87 20 92/39 L 95 11/01/19 12:01 89 26 H 97 11/01/19 12:00 89 30 H 89/41 L 97 11/01/19 11:47 92 H 23 97/37 L 99 11/01/19 11:46 91 H 25 H 97 11/01/19 11:45 89 32 H 97/37 L 96 11/01/19 11:42 88 24 109/56 L 98 11/01/19 11:15 85 21 125/58 L 99 11/01/19 11:13 37.6 C H 11/01/19 11:12 82 28 H 128/62 95 11/01/19 10:43 94 11/01/19 10:42 104 H 26 H 123/66 100 11/01/19 10:24 37 C 86 18 102/[address] L [address] ANGIOGRAM OF THE CHEST IMPRESSION: 1. Motion degraded study 2. No evidence of acute pulmonary embolism 3. Interval decrease in size of the left hilar and mediastinal mass with persistent occlusion of the left upper lobe bronchus and secondary left upper lobe atelectasis/consolidation. 4. Small left pleural effusion 5. Right middle lobe tree-in-bud opacities, likely infectious/inflammatory ECG Indication: SOB/dyspnea Rate (beats per minute): 104 Rhythm: sinus tachycardia Findings: + PAC Comparison ECG Date: from (September 27, 2019) Change: the following changes noted (Sinus rhythm replaced atrial fibrillation, rightward axis) Code Status & VTE Plan Code Status DNR/DNI as discussed with the patient with daughter present VTE Prophylaxis Plan VTE Prophylaxis will be ordered: Yes PG Care Time/CCT Total # of Minutes Spent Total Time Spent with Patient: Total time spent is greater than 50% in co ordination of care (as documented) at patient's floor/unit and/or counseling patient: Coding Level of Care Code 03432 Initial Inpt Care Lvl 3 Diagnoses Neutropenia with fever D70.9; R50.81 Pancytopenia due to antineoplastic chemotherapy D61.810; T45.1X5A Pneumonia J18.9 Laterality: right Lung location: lower lobe of lung Pneumonia type: due to unspecified organism COPD (chronic obstructive pulmonary disease) J44.9 Atrial fibrillation I48.0 Atrial fibrillation type: paroxysmal Pleural effusion on left J90 Small cell lung cancer, overlapping sites of left lung C34.82 CAD (coronary artery disease) I25.10 DVT prophylaxis Z29.9 (1) Atrial fibrillation Atrial fibrillation type: paroxysmal Qualified Code(s): I48.0 - Paroxysmal atrial fibrillation (2) Pneumonia Laterality: right Lung location: lower lobe of lung Pneumonia type: due to unspecified organism Qualified Code(s): J18.9 - Pneumonia, unspecified organism
[2019-11-01] MEDS ORDERED: POTASSIUM CHLORIDE 20 MEQ TABCR PO STA (14:31)
[2019-11-01] MEDS ORDERED: FILGRASTIM 300 MCG/ML VIAL SQ ONE (14:45)
[2019-11-01] MEDS ORDERED: MAGNESIUM HYDROXIDE SUSP 30 ML UDC PO PRN (15:42)
[2019-11-01] MEDS ORDERED: ACETAMINOPHEN 325 MG TAB PO PRN (15:42)
[2019-11-01] MEDS ORDERED: ONDANSETRON INJ 2 MG/ML 2 ML VIAL IV PRN (15:42)
[2019-11-01] MEDS ORDERED: ALBUTEROL HFA 8 GM INHALER INH PRN (15:42)
[2019-11-01] MEDS ORDERED: TIZANIDINE HCL 4 MG TABLET PO PRN (15:42)
[2019-11-01] MEDS ORDERED: PROCHLORPERAZINE MALEATE 10 MG TAB PO PRN (15:42)
[2019-11-01] MEDS ORDERED: NITROGLYCERIN SL 0.4 MG/TAB TAB SL PRN (15:42)
[2019-11-01] MEDS ORDERED: ALUMINUM/MAGNESIUM SUSP 30 ML UDC PO PRN (15:42)
[2019-11-01] MEDS ORDERED: POLYETHYLENE (MIRALAX) 17 GM PACK PO PRN (15:42)
[2019-11-01] MEDS ORDERED: HYDROCODONE/ACETAMOPHEN 5/325MG TAB PO PRN (15:58)
[2019-11-01] MEDS: GABAPENTIN 300 MG CAP PO SCH ×2 (16:45→20:36)
[2019-11-01] MEDS: OXYCODONE HCL IR 5 MG TAB (IMMEDIATE RELEASE) PO PRN (16:45)
[2019-11-01] MEDS: SODIUM CHLORIDE 0.9% 1000ML 1,000 ML IV SCH (16:46)
[2019-11-01] MEDS: ALBUT/IPRATROP 3MG/0.5MG NEB 3 ML VIAL NEB SCH (18:55)
[2019-11-01] MEDS: ROSUVASTATIN CALCIUM 20 MG TAB PO SCH (20:36)
[2019-11-01] MEDS: ASPIRIN 81 MG ECTAB PO SCH (20:36)
[2019-11-01] MEDS: CEFEPIME 2,000 MG in SYRINGE 7.5 ML IV SCH (20:36)
[2019-11-01] MEDS: METOPROLOL SUCC 25MG EXT REL TAB PO SCH (20:36)
[2019-11-01] MEDS: CHOLECALCIFEROL 1,000 UNITS 25 MCG TAB PO SCH (20:36)
[2019-11-01] MEDS: ENOXAPARIN INJ 30 MG/0.3 ML SYR SQ SCH (20:37)
[2019-11-01] MEDS: GABAPENTIN 100 MG CAP PO SCH (20:37)
[2019-11-02] MEDS ORDERED: VANCOMYCIN HCL 750 MG in SODIUM CHLORIDE 0.9% 250 ML IV SCH
[2019-11-02 02:34] LABS: Appearance Urine Clear (Clear); Bacteria Urine Automated Negative (Negative); Bilirubin Urine Negative (Negative); Blood Urine Negative (Negative); Color Urine Dark Yellow; Epithelial Cell Urine Auto >30 /lpf (0-5); Glucose Urine UA Negative (Negative); Ketones Urine Negative (Negative); Leukocyte Esterase Urine Negative (Negative); Nitrite Urine Negative (Negative); Protein Urine 1+ (Negative); Specific Gravity Urine 1.044 (1.000-1.030); Urobilinogen Urine Negative (Negative); pH Urine 5.5 (4.5-7.5)
[2019-11-02] MEDS: CEFEPIME 2,000 MG in SYRINGE 7.5 ML IV SCH ×3 (04:23→19:58)
[2019-11-02] MEDS: SODIUM CHLORIDE 0.9% 1000ML 1,000 ML IV SCH (04:24)
[2019-11-02] MEDS: ALBUT/IPRATROP 3MG/0.5MG NEB 3 ML VIAL NEB SCH (07:05)
[2019-11-02 07:26] LABS: Nucleated RBC % (auto) 3.8 %
[2019-11-02 07:42] LABS: Hematocrit (blood only) 27.5 % (37-47); Hemoglobin 8.3 g/dL (12.0-16.0); Mean Corpuscular Hemoglobin 25.6 pg (25-34); Mean Corpuscular Hgb Conc 30.2 g/dL (32-36); Mean Corpuscular Volume 84.9 fL (80-100); Mean Platelet Volume 10.1 fL (7.4-10.4); Platelet Count 257 K/uL (130-400); RDW Coefficient of Variation 18.2 % (11.5-14.5); RDW Standard Deviation 56.6 fL (36.4-46.3); Red Blood Count 3.24 M/uL (4.2-5.4); White Blood Count 5.32 K/uL (4.8-10.8)
[2019-11-02 07:53] LABS: ALC (manual) 1.87 K/uL (1.2-3.4); ANC (manual) 2.35 K/uL (1.4-6.5); Blast # (manual) 0.14 K/uL (0-0); Blast Cells % (manual) 2.7 %; Eosinophils # (manual) 0.05 K/uL (0-0.5); Eosinophils % (manual) 0.9 %; Lymphocytes # (manual) 1.87 K/uL (1.2-3.4); Lymphocytes % (manual) 35.1 %; Metamyelocytes # (manual) 0.05 K/uL (0-0); Metamyelocytes % (manual) 0.9 %; Monocytes # (manual) 0.86 K/uL (0.11-0.59); Monocytes % (manual) 16.2 %; Neutrophils # (manual) 2.35 K/uL (1.4-6.5); Neutrophils % (manual) 44.2 %
[2019-11-02 07:55] LABS: Dohle Bodies 2+; Howell-Jolly Bodies 1+; Spherocytes Occasional; Target Cells 1+; Toxic Granulation 3+
[2019-11-02 07:57] LABS: Albumin Level 1.9 gm/dl (3.4-5.0); BUN Creatinine Ratio 17.5 (10-20); Calcium 7.8 mg/dl (8.5-10.1); Creatinine Clr Calc Pharmacy 73.3 ml/min; Est GFR (African American) 106.6; Magnesium 1.7 mg/dl (1.8-2.4); Potassium 3.4 mmol/L (3.5-5.1)
[2019-11-02 08:00] LABS: Albumin Globulin Ratio 0.5 (0.9-2); Bilirubin,Total 0.4 mg/dl (0.2-1); Globulin 3.9 gm/dl (2.5-4.0); Total Protein 5.8 gm/dl (6.4-8.2)
[2019-11-02] MEDS: PANTOprazole 40 MG TAB PO SCH (08:19)
[2019-11-02] MEDS: GABAPENTIN 300 MG CAP PO SCH ×4 (08:20→19:59)
[2019-11-02] MEDS: SERTRALINE HCL 50 MG TABLET PO SCH (08:20)
[2019-11-02] MEDS: CHOLECALCIFEROL 1,000 UNITS 25 MCG TAB PO SCH ×2 (08:20→20:00)
[2019-11-02] MEDS: AZITHROMYCIN 250 MG TAB PO SCH (08:20)
[2019-11-02] MEDS ORDERED: POTASSIUM CHLORIDE 20 MEQ/15 ML UDC PO STA (08:22)
[2019-11-02] MEDS ORDERED: METOPROLOL TARTRATE 1 MG/ML VIAL IV STA (08:51)
[2019-11-02] MEDS ORDERED: FILGRASTIM 300 MCG/ML VIAL SQ SCH (09:00)
[2019-11-02] MEDS ORDERED: MAGNESIUM SULFATE / D5W 1 GM/100 ML BAG IV SCH (09:00)
[2019-11-02] MEDS: UMECLIDINIUM BROMIDE 62.5MCG/BLISTER 7 PUFFS/INHALER INH SCH (09:02)
[2019-11-02] MEDS: IPRATROPIUM BROMIDE NEB SOLN 0.02% 2.5 ML VIAL INH SCH ×2 (10:51→15:33)
[2019-11-02] MEDS: LEVALBUTEROL 1.25MG/0.5ML NEB INH SCH ×2 (10:52→15:33)
[2019-11-02] MEDS ORDERED: XOPENEX/ATROVENT 1.25mg/0.5MG NEB COMBO NEB SCH (11:00)
[2019-11-02] MEDS ORDERED: CALCIUM CARBONATE 1250MG TAB PO SCH (11:30)
[2019-11-02] MEDS: MULTIVITAMIN TAB PO SCH (11:50)
[2019-11-02] MEDS: CALCIUM CARBONATE 1250MG TAB PO SCH (11:50)
--- NOTE | 2019-11-02 11:59 | Hospitalist Progress Note ---
Date of Service November 02, 2019 Assessment & Plan (1) Neutropenia with fever: Mrs. Brownlee is an 84 yo F with metastatic small cell lung cancer (diagnosed 09/2019) currently on chemotherapy (first infusion 10/21) with port placement on 10/26 who was admitted for neutropenic fever. - secondary to HCAP (see below) vs. port site infection (no surrounding erythema) - currently afebrile - WBC 1.81, ANC 0.05 on admission; patient given Neupogen per Dr. Bermeo - WBC improved to 5.32 today, ANC up to 2.35 - on neutropenic precautions - oncology consulted (2) Pancytopenia due to antineoplastic chemotherapy: - WBC 1.81 on admission, up to 5.32 with neupogen - Hgb low at 8.3 - platelets normal at 257 (3) Pneumonia: - Chest CT showing suspected RML PNA - procalcitonin mildly elevated on admission, favoring infectious etiology - presumed HCAP given recent hospitalization and immunocompromised state (on chemotherapy) - initially started on IV vancomycin/cefepime. vanc has been d/c with negative nasal MRSA swab - recent bronchial washing showing pansensitive pseudomonas. it is possible zosyn would provide adequate coverage, but we will continue with IV cefepime given good response - on review of chest CT, current PNA appears to possibly be a result of a post- obstructive process given location of small cell tumor. Will discuss case with pulm for consideration of intervention (bronchial stent vs. radiation) - incentive spirometry (4) COPD (chronic obstructive pulmonary disease): - does not appear to be in exacerbation. - continue Spiriva every morning - patient given dose of azithromycin in ED - zopenex prn (5) Atrial fibrillation: - Paroxysmal; patient slipped into A-fib with rate in 130s this AM, likely to due to acute illness - rate normalized with 5mg Lopressor - continue home dose metoprolol succinate 12.5mg BID for rate control - As per most recent cardiology documentation she is not on anticoagulation due to history of anemia in 04/2019 (small bowel AVMs) (6) Pleural effusion on left: - Suspected malignant, improved from prior imaging - Unlikely empyema given presence on imaging prior to infection (7) Small cell lung cancer, overlapping sites of left lung: 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 Started on chemotherapy carboplatin, etoposide, atezolizumab October 19, 2019. Port placement October 27, 2019 (8) CAD (coronary artery disease): STEMI in 2016 s/p x3 bare metal stents to RCA 02/2016 Continue ASA, metoprolol, rosuvastatin (9) DVT prophylaxis: Lovenox 30 mg subcutaneous at bedtime Admission and Anticipated Discharge Date Admission Date: November 01, 2019 Supervising Physician Co-Signing Physician Notes I personally examined the patient and verified all valle points of history and exam, discussed case, and agree with decision making with Dr Min. feeling better. breathing more or less at baseline. fever gone. vitals noted nad heent nc at mmm breathing unlabored L lung fairly quiet, R diminished but clear breath sounds no r/r/w good effort no accessory muscles. skin no rashes no pallor or icterus neutropenic fever -due to pneumonia -improving pneumonia - concern on gram negative probable pseudomonas - treating w cefepime for now - improving. once able to transition to home ?quinolone - continue to follow -possibly obstructive - will need to d/w pumonary ?possibility/benefit of stenting, ?benefit of XRT --> to alleviate obstruction probable moderate protein/calorie malnutrition - noted. ongoing vigilance and management as outpt afib - brief RVR this AM - improved w additional metoprolol. 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 Breathing at its baseline. Review of Systems Review of Systems: All systems reviewed & are unremarkable except as noted in HPI & below Physical Exam Constitutional: WD/WN, vitals as above cooperative Eyes: + anicteric sclerae ENMT: external ear and nose normal, oropharynx normal Neck: normal visual inspection and trachea midline Respiratory: normal respiratory effort Auscultation: + diminished lung sounds (left lung base) and + crackles Chest (Breasts): Chest: + vascular access device or port (no surrounding erythmea ) Gastrointestinal (Abdomen): Inspection/Auscultation: abdomen normal to inspection Skin: no rashes, warm and dry Psychiatric: A+Ox3, euthymic affect Results & Data Results & Data ([facility]) Vital Signs (Past 12 Hours) Vital Signs Temp Pulse Pulse Resp BP Pulse Ox 11/02/19 11:54 37.2 C 88 16 114/62 95 11/02/19 10:53 80 18 95 11/02/19 09:04 140 H 11/02/19 08:03 37.2 C 86 18 101/53 L 96 11/02/19 07:07 81 18 92 11/02/19 03:45 37.4 C 87 22 96/54 L 90 11/02/19 01:25 84 11/02/19 00:13 37.2 C 83 21 96/45 L 91 Resident Activity Tracking Resident Involvement: Resident Care Provided Care Provided: Adult Hospital Medicine (1) Atrial fibrillation Atrial fibrillation type: paroxysmal Qualified Code(s): I48.0 - Paroxysmal atrial fibrillation (2) Pneumonia Laterality: right Lung location: lower lobe of lung Pneumonia type: due to unspecified organism Qualified Code(s): J18.9 - Pneumonia, unspecified organism
--- NOTE | 2019-11-02 15:56 | Electrocardiogram Report ---
Test Reason : Blood Pressure : / mmHG Vent. Rate : 127 BPM Atrial Rate : 147 BPM P-R Int : 000 ms QRS Dur : 074 ms QT Int : 302 ms P-R-T Axes : 000 099 -36 degrees QTc Int : 438 ms Poor data quality, interpretation may be adversely affected Atrial fibrillation with rapid ventricular response Rightward axis Low voltage QRS Septal infarct , age undetermined Abnormal ECG When compared with ECG of 01-NOV-2019 10:51, Atrial fibrillation has replaced Sinus rhythm Nonspecific T wave abnormality, improved in Anterior leads Confirmed by Goyo Arzate ([id number]) on 11/02/2019 3:55:42 PM Referred By: REFERRED SELF Confirmed By:Goyo Arzate
[2019-11-02] MEDS ORDERED: IPRATROPIUM BROMIDE NEB SOLN 0.02% 2.5 ML VIAL INH PRN (16:15)
[2019-11-02] MEDS: OXYCODONE HCL IR 5 MG TAB (IMMEDIATE RELEASE) PO PRN (16:22)
--- NOTE | 2019-11-02 16:29 | Billing Data ---
Date of Service November 02, 2019 Coding Level of Care Code 00313 Subseq Hosp Care Lvl 3
[2019-11-02] MEDS ORDERED: LEVALBUTEROL 1.25MG/0.5ML NEB INH PRN (17:23)
[2019-11-02] MEDS: METOPROLOL SUCC 25MG EXT REL TAB PO SCH (17:34)
[2019-11-02] MEDS ORDERED: Nursing to Pharmacy Communication SCH (18:00)
[2019-11-02] MEDS ORDERED: METOPROLOL TARTRATE 1 MG/ML VIAL IV PRN (18:04)
[2019-11-02] MEDS: ENOXAPARIN INJ 30 MG/0.3 ML SYR SQ SCH (19:58)
[2019-11-02] MEDS: ROSUVASTATIN CALCIUM 20 MG TAB PO SCH (19:59)
[2019-11-02] MEDS: ASPIRIN 81 MG ECTAB PO SCH (19:59)
[2019-11-02] MEDS: GABAPENTIN 100 MG CAP PO SCH (20:00)
[2019-11-03] MEDS: CEFEPIME 2,000 MG in SYRINGE 7.5 ML IV SCH ×3 (03:21→19:44)
[2019-11-03 08:00] LABS: Hemoglobin 9.2 g/dL (12.0-16.0); Mean Corpuscular Hgb Conc 30.7 g/dL (32-36); Mean Corpuscular Volume 84.7 fL (80-100); Mean Platelet Volume 10.6 fL (7.4-10.4); Nucleated RBC # (auto) 0.93 K/uL (0-0); Platelet Count 487 K/uL (130-400); RDW Coefficient of Variation 18.6 % (11.5-14.5); RDW Standard Deviation 57.6 fL (36.4-46.3); Red Blood Count 3.54 M/uL (4.2-5.4); White Blood Count 15.45 K/uL (4.8-10.8)
[2019-11-03 08:18] LABS: ALC (manual) 2.19 K/uL (1.2-3.4); ANC (manual) 10.91 K/uL (1.4-6.5); Blast # (manual) 0.42 K/uL (0-0); Blast Cells % (manual) 2.7 %; Eosinophils # (manual) 0.14 K/uL (0-0.5); Eosinophils % (manual) 0.9 %; Howell-Jolly Bodies Occasional; Lymphocytes # (manual) 2.19 K/uL (1.2-3.4); Lymphocytes % (manual) 14.2 %; Metamyelocytes # (manual) 0.14 K/uL (0-0); Metamyelocytes % (manual) 0.9 %; Monocytes % (manual) 7.1 %; Myelocytes # (manual) 0.14 K/uL (0-0); Myelocytes % (manual) 0.9 %; Neutrophils # (manual) 10.91 K/uL (1.4-6.5); Neutrophils % (manual) 70.6 %; Promyelocytes # (manual) 0.42 K/uL (0-0); Promyelocytes % (manual) 2.7 %; Spherocytes Occasional; Target Cells 1+; Toxic Granulation 3+; Toxic Vacuolation 1+
[2019-11-03 08:22] LABS: BUN Creatinine Ratio 15.1 (10-20); Calcium 8.3 mg/dl (8.5-10.1); Creatinine Clr Calc Pharmacy 60.2 ml/min; Est GFR (African American) 99.9; Est GFR (Non-African American) 86.2; Potassium 3.7 mmol/L (3.5-5.1)
[2019-11-03] MEDS: SERTRALINE HCL 50 MG TABLET PO SCH (08:29)
[2019-11-03] MEDS: CHOLECALCIFEROL 1,000 UNITS 25 MCG TAB PO SCH ×2 (08:29→19:40)
[2019-11-03] MEDS: GABAPENTIN 300 MG CAP PO SCH ×4 (08:29→19:40)
[2019-11-03] MEDS: AZITHROMYCIN 250 MG TAB PO SCH (08:30)
[2019-11-03] MEDS: PANTOprazole 40 MG TAB PO SCH (08:30)
[2019-11-03] MEDS: UMECLIDINIUM BROMIDE 62.5MCG/BLISTER 7 PUFFS/INHALER INH SCH (08:30)
[2019-11-03 08:37] LABS: Albumin Globulin Ratio 0.4 (0.9-2); Bilirubin,Total 0.3 mg/dl (0.2-1); Globulin 4.5 gm/dl (2.5-4.0); Phosphorus 1.2 mg/dl (2.5-4.9); Total Protein 6.5 gm/dl (6.4-8.2)
[2019-11-03] MEDS ORDERED: POTASSIUM PHOS 3 MMOL/1 ML INFUSION IV STA ×2 (09:10→09:12)
[2019-11-03] MEDS ORDERED: POTASSIUM PHOSPHATE 21 MMOL in SODIUM CHLORIDE 0.9% 500 ML IV ONE (09:45)
--- NOTE | 2019-11-03 10:21 | Consultation Report ---
DATE OF CONSULTATION: 11/03/2019 MEDICAL ONCOLOGY CONSULTATION REASON FOR CONSULTATION: Neutropenic fever. This is a pleasant 84-year-old female with extensive-stage small cell lung cancer. HISTORY OF PRESENT ILLNESS: The patient is a pleasant 84-year-old female with extensive-stage small cell lung cancer, who presented to the Emergency Room on 11/01/2019 with subacute onset fever, fatigue, generalized weakness over the past 24 hours. The patient was recently diagnosed with extensive-stage small cell lung cancer including bony mets in mid September. She was subsequently started on combination carboplatin, etoposide and atezolizumab on 10/19/2019. Initially did very well with her infusion; however, the day of admission, had developed a low-grade fever and her relative was insistent she come to hospital. She has had no COVID-19 contacts or symptoms consistent with coronavirus. Her WBCs were quite low with an ANC of 50. I was contacted by the hospitalist service and instructed immediate initiation of granulocyte colony stimulating growth factor. Her white count has subsequently responded nicely. 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 Presently, she feels quite well. She has been devoid of fever, receiving broad spectrum antimicrobials. Cultures are pending. Back in mid September, the patient had an alveolar lavage culture positive for pseudomonas. PAST MEDICAL HISTORY: Includes gastroesophageal reflux disease, normocytic normochromic anemia, coronary artery disease, COPD, history of atrial fibrillation, history of myocardial infarction, history of TIA, hyperlipidemia, lumbar disk disease, left-sided pleural effusion, pulmonary hypertension, situational depression, extensive stage small cell lung cancer, vitamin D deficiency. PAST SURGICAL HISTORY: Includes tooth extraction, splenectomy, inguinal hernia repair, history of coronary artery stenting, ORIF facial fracture, EGD, colonoscopy, cholecystectomy, cataract surgery, bronchoscopy, appendectomy. MEDICATIONS: Prior to admission include nitroglycerin 0.4 mg subQ q. 5 minutes x3 p.r.n., rosuvastatin 20 mg p.o. daily, cholecalciferol 2000 units p.o. b.i.d., gabapentin 300 mg p.o. q.i.d. with 400 mg dose at bedtime, budesonide 1 mg inhaled q.i.d. p.r.n., hydrocodone 5 mg/acetaminophen 325 one tablet p.o. q. 6 hours p.r.n., albuterol inhaler 2 puffs inhaled q. 4 hours p.r.n., dexamethasone 4 mg p.o. u.d., olanzapine 2.5 mg p.o. u.d., Zofran 8 mg p.o. q. 8 hours p.r.n., Compazine 10 mg p.o. q. 8 hours p.r.n., Spiriva HandiHaler 1 capsule inhaled q.a.m., Tylenol 500 mg p.o. q. 6 hours p.r.n., aspirin 81 mg p.o. at bedtime, furosemide 40 mg p.o. daily, metoprolol 12.5 mg p.o. daily, omeprazole 40 mg p.o. daily, Zoloft 50 mg p.o. q.aM ALLERGIES: TO DICLOFENAC, DICLOXACILLIN, LEVOFLOXACIN, NAPROSYN, PENICILLIN, RISEDRONATE SODIUM. FAMILY HISTORY: Mother suffered from hypertension, brother suffered from gallbladder disease. SOCIAL HISTORY: The patient is retired, reformed smoker. Negative for alcohol or illicit drugs. REVIEW OF SYSTEMS: CONSTITUTIONAL: Positive for asthenia, fatigue, low-grade fever. She is not anorexic or losing weight. SKIN: No rashes or lesions. No history of dermatoses. HEENT: Negative for headaches, lightheadedness or dizziness. No acute visual or hearing deficits. No sinus symptoms, sore throat or dysphagia. LYMPH: No history of lymphoproliferative disease. CARDIAC: Positive history of coronary artery disease. Positive history of atrial fibrillation. No current angina or palpitations. PULMONARY: Positive history for oxygen dependent COPD. She is not acutely short of breath, dyspneic or orthopneic. No hemoptysis reported. GASTROINTESTINAL: Negative for abdominal pain, nausea, vomiting, diarrhea or constipation, hematochezia or melena stools. GENITOURINARY: No hematuria, dysuria, urinary incontinence. MUSCULOSKELETAL: No arthralgias or myalgias. No focal muscle weakness. ENDOCRINE: Negative for diabetes or thyroid disease. NEUROLOGIC: Negative for seizure, stroke or migraine headache. HEMATOLOGIC: Positive for neutropenia and normocytic normochromic anemia. PHYSICAL EXAMINATION: GENERAL: Very pleasant 84-year-old female, awake, alert and appropriate, in no acute distress. VITAL SIGNS: Temperature 36.9, pulse 82, respiratory rate 16, blood pressure 97/59. SKIN: Warm, dry, noncyanotic. Turgor is fair. HEENT: Atraumatic, normocephalic. Eyes; PERRLA, EOMI. Sclerae nonicteric. No conjunctival injection. Nares patent without rhinorrhea or discharge. Throat clear. Tongue midline. Mucous membranes are moist. Dentures in place. No buccal lesions or ulcerations. No evidence of thrush. NECK: Supple without JVD or thyromegaly. HEART: Irregularly irregular. LUNGS: Diminished breath sounds in the posterior bases, left greater than right. No wheezes or rhonchi appreciated. ABDOMEN: Soft, nontender, nondistended without palpable hepatosplenomegaly. EXTREMITIES: Musculoskeletal strength and pulses are equal in all 4 extremities. No clubbing, cyanosis or edema. NEUROLOGICAL: She is awake, alert and oriented x3. Cranial nerves are grossly intact. LABORATORY DATA: These are values from 11/02/2019. WBC count 5320, hemoglobin 8.3 and platelet count 257,000. Her absolute neutrophil count is now 2350. Sodium 136, potassium 3.4, chloride 103, carbon dioxide 26, creatinine 0.46, BUN 8, magnesium slightly decreased to 1.7, albumin 1.9. IMPRESSION: 1. Neutropenic fever. 2. Hypoalbuminemia. 3. Hypomagnesemia. 4. Extensive stage small cell lung cancer. PLAN: In summary, the patient is a very pleasant 84-year-old female well known to [facility], recently diagnosed with extensive-stage small cell lung cancer in mid September. She subsequently received her initial course of carboplatin, etoposide and atezolizumab on 10/19/2019. Not surprisingly, the patient became neutropenic and developed fever. She was appropriately administered broad-spectrum antimicrobials and has received granulocyte colony stimulating growth factor. Need to work on her nutritional status a bit. Replace all deficiant electrolytes. Clinically, she is doing much better already and anticipate she will go home in the next 24-48 hours unless she develops new clinical issue. My plan moving forward is to administer her second cycle of chemotherapy when due, which I believe is next week. May consider dose modification to reduce the myelosuppressive effects. We will also incorporate Neulasta 6 mg subQ on day 4 post each cycle. I agree with medical management otherwise and have nothing further to add. Thank you very much for allowing me to participate in her care and look forward to seeing the patient prior to cycle number 2. MTDD
[2019-11-03] MEDS: MULTIVITAMIN TAB PO SCH (11:24)
[2019-11-03] MEDS: METOPROLOL SUCC 25MG EXT REL TAB PO SCH ×2 (11:24→19:41)
[2019-11-03] MEDS: CALCIUM CARBONATE 1250MG TAB PO SCH (11:24)
--- NOTE | 2019-11-03 17:14 | Hospitalist Progress Note ---
Date of Service November 03, 2019 Assessment & Plan (1) Neutropenia with fever: Mrs. Brownlee is an 84 yo F with metastatic small cell lung cancer (diagnosed 09/2019) currently on chemotherapy (first infusion 10/21) with port placement on 10/26 who was admitted for neutropenic fever. - secondary to HCAP - currently afebrile - WBC 1.81, ANC 0.05 on admission; patient given Neupogen per Dr. Bermeo - WBC up to 15.32 today, ANC up to 2.35 - on neutropenic precautions - oncology consulted (2) Pancytopenia due to antineoplastic chemotherapy: - WBC 1.81 on admission, up to 15 - s/p neupogen - Hgb improved - platelets normal at 257 (3) Pneumonia: - Chest CT showing suspected RML PNA - procalcitonin mildly elevated on admission, favoring infectious etiology - presumed HCAP given recent hospitalization and immunocompromised state (on chemotherapy) - on day 2 of IV cefepime - recent bronchial washing showing pansensitive pseudomonas. it is possible zosyn would provide adequate coverage, but we will continue with IV cefepime given good response - on review of chest CT, current PNA appears to possibly be a result of a post- obstructive process given location of small cell tumor. Will discuss case with pulm for consideration of intervention (bronchial stent vs. radiation) - incentive spirometry (4) COPD (chronic obstructive pulmonary disease): - does not appear to be in exacerbation. - continue Spiriva every morning - patient given dose of azithromycin in ED - zopenex prn (5) Atrial fibrillation: - Paroxysmal; patient slipped into A-fib with rate in 130s this AM, likely to due to acute illness - rate at times increasing to 130s - increased home dose metoprolol succinate 12.5mg from once daily to BID for ra te control - As per most recent cardiology documentation she is not on anticoagulation due to history of anemia in 04/2019 (small bowel AVMs) (6) Pleural effusion on left: - Suspected malignant, improved from prior imaging - Unlikely empyema given presence on imaging prior to infection (7) Small cell lung cancer, overlapping sites of left lung: 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 Started on chemotherapy carboplatin, etoposide, atezolizumab October 19, 2019. Port placement October 27, 2019 (8) CAD (coronary artery disease): STEMI in 2016 s/p x3 bare metal stents to RCA 02/2016 Continue ASA, metoprolol, rosuvastatin (9) DVT prophylaxis: Lovenox 30 mg subcutaneous at bedtime Dispo: Tele Diet: Heart Healthy Code: DNR/DNI Admission and Anticipated Discharge Date Admission Date: November 01, 2019 Supervising Physician Co-Signing Physician Notes I personally examined the patient and verified all valle points of history and exam, discussed case, and agree with decision making with Dr Min. feeling better. breathing more or less at baseline. fever gone. vitals noted nad heent nc at mmm breathing unlabored L lung fairly quiet, R diminished but clear breath sounds no r/r/w good effort no accessory muscles. skin no rashes no pallor or icterus neutropenic fever -due to pneumonia -improved - discussed risks/benefits as far as abx transition to go home - currently on 4th gen ceph, has grown pseudomonas before - but was youngblood sensitive, and this time fortunately was really not severely ill w pneumonia making the need for anti-pseudomonal gram negative coverage more in doubt. in that respect strongly considering PO 3rd gen ceph at time of discharge - good gram negative coverage all around, but without the connective tissue risks of a quinolone - and also given her cancer/obstruction/etc - there's a high likelihood she may need quinolones at some point in her journey and would prefer to preserve efficacy for when they're clearly necessary. pneumonia - see above. probably home tomorrow so will get another 24hrs cefepime probable moderate protein/calorie malnutrition - noted. ongoing vigilance and management as outpt afib -ongoing mild asymptomatic RVR --> increase metoprolol and follow (late addendum is that rates have improved through this afternoon) dispo - since neutropenia/fever/pneumonia all improving - as long as afib better controlled then home tomorrow. Subjective Patient feeling improved today. Breathing at its baseline. Review of Systems Review of Systems: All systems reviewed & are unremarkable except as noted in HPI & below Physical Exam Constitutional: WD/WN, vitals as above cooperative Eyes: + anicteric sclerae ENMT: external ear and nose normal, oropharynx normal Neck: normal visual inspection and trachea midline Respiratory: normal respiratory effort Auscultation: + diminished lung sounds (left lung base) and + crackles Chest (Breasts): Chest: + vascular access device or port (no surrounding erythmea ) Gastrointestinal (Abdomen): Inspection/Auscultation: abdomen normal to inspection Skin: no rashes, warm and dry Psychiatric: A+Ox3, euthymic affect Results & Data Results & Data ([facility]) Vital Signs (Past 12 Hours) Vital Signs Temp Pulse Resp BP Pulse Ox 11/03/19 15:49 37.1 C 81 16 113/65 94 11/03/19 11:29 36.6 C 116 H 19 99/59 L 98 11/03/19 07:54 36.8 C 124 H 19 98/58 L 96 Resident Activity Tracking Resident Involvement: Resident Care Provided Care Provided: Adult Hospital Medicine (1) Atrial fibrillation Atrial fibrillation type: paroxysmal Qualified Code(s): I48.0 - Paroxysmal atrial fibrillation (2) Pneumonia Laterality: right Lung location: lower lobe of lung Pneumonia type: due to unspecified organism Qualified Code(s): J18.9 - Pneumonia, unspecified organism
--- NOTE | 2019-11-03 18:16 | Billing Data ---
Date of Service November 03, 2019 Coding Level of Care Code 65609 Subseq Hosp Care Lvl 3
[2019-11-03] MEDS: OXYCODONE HCL IR 5 MG TAB (IMMEDIATE RELEASE) PO PRN (19:38)
[2019-11-03] MEDS: GABAPENTIN 100 MG CAP PO SCH (19:40)
[2019-11-03] MEDS: ENOXAPARIN INJ 30 MG/0.3 ML SYR SQ SCH (19:41)
[2019-11-03] MEDS: ASPIRIN 81 MG ECTAB PO SCH (19:41)
[2019-11-03] MEDS: ROSUVASTATIN CALCIUM 20 MG TAB PO SCH (19:41)
[2019-11-04] MEDS: CEFEPIME 2,000 MG in SYRINGE 7.5 ML IV SCH ×2 (04:08→12:26)
--- NOTE | 2019-11-04 06:35 | Communication Note ---
Date of Service: November 04, 2019 Notified by nursing overnight that pt was having increased work of breathing. Notified she had her 3L oxygen off at one point overnight and had oxygen sat urations as low as the 60s. She now required 5L. Stat repeat portable xray obtained. Appeared to show some progression of pathology on the left, which might require therapeutic tapping. Supportive oxygen therapy was provided overnight, pt required 5L for sats >92%. PRN bipap was ordered if escalation of respiratory support was needed. Resident Activity Tracking Resident Involvement: Satellite Technician Coverage Note Care Provided: Adult Hospital Medicine
[2019-11-04 06:50] LABS: Hematocrit (blood only) 28.5 % (37-47); Hemoglobin 8.9 g/dL (12.0-16.0); Mean Corpuscular Hemoglobin 26.5 pg (25-34); Mean Corpuscular Hgb Conc 31.2 g/dL (32-36); Mean Corpuscular Volume 84.8 fL (80-100); Mean Platelet Volume 9.9 fL (7.4-10.4); Nucleated RBC # (auto) 0.66 K/uL (0-0); Nucleated RBC % (auto) 2.2 %; Platelet Count 546 K/uL (130-400); RDW Coefficient of Variation 19.2 % (11.5-14.5); RDW Standard Deviation 59.3 fL (36.4-46.3); Red Blood Count 3.36 M/uL (4.2-5.4)
[2019-11-04 06:57] LABS: ALC (manual) 1.36 K/uL (1.2-3.4); ANC (manual) 23.47 K/uL (1.4-6.5); Blast # (manual) 0.55 K/uL (0-0); Blast Cells % (manual) 1.8 %; Lymphocytes # (manual) 1.36 K/uL (1.2-3.4); Lymphocytes % (manual) 4.4 %; Metamyelocytes # (manual) 0.55 K/uL (0-0); Metamyelocytes % (manual) 1.8 %; Monocytes # (manual) 3.51 K/uL (0.11-0.59); Monocytes % (manual) 11.4 %; Neutrophils # (manual) 23.47 K/uL (1.4-6.5); Neutrophils % (manual) 76.2 %; Promyelocytes # (manual) 1.36 K/uL (0-0); Promyelocytes % (manual) 4.4 %
[2019-11-04 06:59] LABS: BUN Creatinine Ratio 16.9 (10-20); Calcium 8.6 mg/dl (8.5-10.1); Creatinine Clr Calc Pharmacy 44.4 ml/min; Est GFR (African American) 84.1; Est GFR (Non-African American) 72.5; Magnesium 2.1 mg/dl (1.8-2.4); Phosphorus 2.8 mg/dl (2.5-4.9); Potassium 4.5 mmol/L (3.5-5.1)
[2019-11-04 07:00] LABS: Dohle Bodies 1+; Howell-Jolly Bodies Occasional; Spherocytes Occasional; Target Cells 1+; Toxic Granulation 3+
[2019-11-04] MEDS: PANTOprazole 40 MG TAB PO SCH (08:38)
[2019-11-04] MEDS: SERTRALINE HCL 50 MG TABLET PO SCH (08:38)
[2019-11-04] MEDS: AZITHROMYCIN 250 MG TAB PO SCH (08:38)
[2019-11-04] MEDS: CHOLECALCIFEROL 1,000 UNITS 25 MCG TAB PO SCH ×2 (08:38→19:42)
[2019-11-04] MEDS: GABAPENTIN 300 MG CAP PO SCH ×4 (08:39→19:41)
[2019-11-04] MEDS: METOPROLOL SUCC 25MG EXT REL TAB PO SCH ×2 (08:39→19:44)
[2019-11-04] MEDS: UMECLIDINIUM BROMIDE 62.5MCG/BLISTER 7 PUFFS/INHALER INH SCH (08:39)
--- NOTE | 2019-11-04 08:46 | XRay Report ---
XR chest 1V portable CLINICAL HISTORY: Shortness of breath COMPARISON STUDY: 11/01/2019 FINDINGS: The chest is emphysematous configuration. There is an increasing left pleural effusion with associated left lung atelectasis/consolidation. There is a bandlike area of presumed subsegmental at electatic change at the right lung base. There is a right-sided A-Port catheter. A spinal catheter is visualized.[There is left hilar fullness raising the possibility of a hilar mass. IMPRESSION: 1. Increasing left pleural effusion with associated left lung atelectasis/consolidation ACT 112: Negative or not required by law. Electronically signed by: Jose Fisher M.D. 11/04/2019 7:06 AM
[2019-11-04] MEDS: OXYCODONE HCL IR 5 MG TAB (IMMEDIATE RELEASE) PO PRN (09:24)
--- NOTE | 2019-11-04 11:52 | Hospitalist Progress Note ---
Date of Service November 04, 2019 Assessment & Plan (1) Neutropenia with fever: Mrs. Brownlee is an 84 yo F with metastatic small cell lung cancer (diagnosed 09/2019) currently on chemotherapy (first infusion 10/21) with port placement on 10/26 who was admitted for neutropenic fever. - secondary to HCAP - increased oxygen requirement overnight and increased WBC concerning for progressive infection vs. worsening effusion - CXR showing progression of pleural effusion - currently afebrile - WBC 1.81, ANC 0.05 on admission; patient given Neupogen per Dr. Bermeo - on neutropenic precautions - oncology consulted (2) Pancytopenia due to antineoplastic chemotherapy: - WBC 1.81 on admission, up to 30 - s/p neupogen - Hgb improved - platelets normal at 257 (3) Pneumonia: - Chest CT showing suspected RML PNA - procalcitonin mildly elevated on admission, favoring infectious etiology - presumed HCAP given recent hospitalization and immunocompromised state (on chemotherapy) - increased O2 requirement and WBC concerning for inadequate abx coverage. Will repeat MRSA nares and add vanco if positive - on day 3 of IV cefepime - recent bronchial washing showing pansensitive pseudomonas. it is possible zosyn would provide adequate coverage, but we will continue with IV cefepime given good response - on review of chest CT, current PNA appears to possibly be a result of a post- obstructive process given location of small cell tumor. Will discuss case with pulm for consideration of intervention (bronchial stent vs. radiation) - incentive spirometry (4) COPD (chronic obstructive pulmonary disease): - does not appear to be in exacerbation. - continue Spiriva every morning - patient given dose of azithromycin in ED - zopenex prn (5) Atrial fibrillation: - Paroxysmal; patient slipped into A-fib with rate in 130s this AM, likely to due to acute illness - rate at times increasing to 130s - increased home dose metoprolol succinate 12.5mg from once daily to BID for rate control - As per most recent cardiology documentation she is not on anticoagulation due to history of anemia in 04/2019 (small bowel AVMs) (6) Pleural effusion on left: - Suspected malignant, improved from prior imaging - Unlikely empyema given presence on imaging prior to infection - pulmonary consulted and did a thoracentesis, removing 600-700 ml of fluid (7) Small cell lung cancer, overlapping sites of left lung: 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 Started on chemotherapy carboplatin, etoposide, atezolizumab October 19, 2019. Port placement October 27, 2019 (8) CAD (coronary artery disease): STEMI in 2016 s/p x3 bare metal stents to RCA 02/2016 Continue ASA, metoprolol, rosuvastatin (9) DVT prophylaxis: Lovenox 30 mg subcutaneous at bedtime Dispo: Tele Diet: Heart Healthy Code: DNR/DNI Admission and Anticipated Discharge Date Admission Date: November 01, 2019 Supervising Physician Co-Signing Physician Notes I personally examined the patient and verified all valle points of history and exam, discussed case, and agree with decision making with Dr Min. seen during thoracentesis. d/w pulmonary - input appreciated. nursing notes that a lot of her grogginess came after pain medication this AM. vitals noted nad getting thoracentesis clear yellow fluid being removed breathing unlabored during procedure. neutropenic fever -due to pneumonia -clinical worsening hopefully all due to effusion getting larger - thoracentesis done by pulmonary - but concern on rising wbc - keep cefepime low threshold to double cover gram negatives; repeat MRSA nares and add vanco if positive pneumonia - see above. not amenable to stenting per pulmonary - therefore agree w ?XRT to help alleviate obstruction some malignant effusion -worse likely in response to pneumonia. likely in large part causative for worsening hypoxia today. s/p thoracentesis now. worsening leukocytosis - concern on above being causative; also could be vigorous reaction to gCSF, could be multifactorial - continue to follow closely and otherwise as above probable moderate protein/calorie malnutrition - noted. ongoing vigilance and management as outpt afib -ongoing mild asymptomatic RVR --> increase metoprolol and follow (late addendum is that rates have improved through this afternoon) dispo - since neutropenia/fever/pneumonia all improving - as long as afib better controlled then home tomorrow. Subjective Overnight patient desatted to the 60s; nurse found oxygen off her nose. Patient feels unwell today. She is very drowsy. Review of Systems Review of Systems: All systems reviewed & are unremarkable except as noted in HPI & below Physical Exam Constitutional: WD/WN, vitals as above cooperative Eyes: + anicteric sclerae ENMT: external ear and nose normal, oropharynx normal Neck: normal visual inspection and trachea midline Respiratory: normal respiratory effort Auscultation: + diminished lung sounds (left lung base) and + crackles Chest (Breasts): Chest: + vascular access device or port (no surrounding erythmea ) Gastrointestinal (Abdomen): Inspection/Auscultation: abdomen normal to inspection Skin: no rashes, warm and dry Psychiatric: A+Ox3, euthymic affect Results & Data Results & Data ([facility]) Vital Signs (Past 12 Hours) Vital Signs Temp Pulse Resp BP Pulse Ox 11/04/19 11:39 36.4 C L 76 18 112/67 95 11/04/19 08:08 36.6 C 92 H 20 120/71 95 11/04/19 04:11 36.8 C 88 22 101/64 94 11/04/19 00:21 98 H 20 91 11/04/19 00:00 36.7 C 101 H 26 H 108/64 90 Resident Activity Tracking Resident Involvement: Resident Care Provided Care Provided: Adult Hospital Medicine (1) Atrial fibrillation Atrial fibrillation type: paroxysmal Qualified Code(s): I48.0 - Paroxysmal atrial fibrillation (2) Pneumonia Laterality: right Lung location: lower lobe of lung Pneumonia type: due to unspecified organism Qualified Code(s): J18.9 - Pneumonia, unspecified organism
[2019-11-04] MEDS: MULTIVITAMIN TAB PO SCH (12:25)
[2019-11-04] MEDS: CALCIUM CARBONATE 1250MG TAB PO SCH (12:26)
--- NOTE | 2019-11-04 13:55 | Surgery Progress Note ---
Date of Service November 04, 2019 Assessment & Plan (1) Small cell lung cancer in adult: Patient is POD#8 insertion of mediport w/ general surgery She is currently here being treated for pneumonia Patient's wound's are c/d/i with dermabond in place, healing well She had an appointment scheduled in surgery clinic this upcoming friday11/08/19- we will cancel this appointment as patient currently admitted. Wound is healing well. She can follow up on an as needed basis Mediport okay for use Please call with any questions/concerns Subjective Patient says she is starting to feel better than when she was admitted. No more fevers. Physical Exam Chest (Breasts): Additional Comments: Right port in place. incisions c/d/i with dermabond over chest and neck incision. well approximated. no signs of infection. Results & Data Vital Signs (Past 12 Hours) Vital Signs Temp Pulse Resp BP Pulse Ox 11/04/19 11:39 36.4 C L 76 18 112/67 95 11/04/19 08:08 36.6 C 92 H 20 120/71 95 11/04/19 04:11 36.8 C 88 22 101/64 94 PG Care Time/CCT Total # of Minutes Spent Total Time Spent with Patient: Total time spent is greater than 50% in coordination of care (as documented) at patient's floor/unit and/or counseling patient: Coding Level of Care Code None Diagnoses Small cell lung cancer in adult C34.90
--- NOTE | 2019-11-04 15:28 | Procedure Note ---
Procedure Note Date of Service November 04, 2019 Note Procedure: Diagnostic and/or therapeutic ultrasound-guided catheter thoracentesis Airplane Navigator: Dr. Michael Alfaro Indication: Pleural effusion Consent: Signed by patient and verified with timeout prior to procedure Anesthesia: 8 mL's of 1% lidocaine without epinephrine given locally Procedure: Consent was verified and timeout performed. Appropriate imaging studies were reviewed prior to the procedure. Patient was placed in a seated position and limited thoracic ultrasound was performed of the left lateral chest. See separate imaging. The site appropriate for thoracentesis was selected. The skin was prepped and draped in normal sterile fashion. Lidocaine was used for local analgesia. Fluid was aspirated via the finder needle. A small skin catarino was made with the scalpel and the catheter over the needle apparatus was advanced over the rib into the pleural space. Using the syringe one-way valve system, a total of approximately 600 mL's of clear yellow fluid was removed. Procedure was terminated due to lack of fluid. The catheter was removed and observed to be intact. A sterile dressing was applied. Post procedure chest x- ray was ordered. Fluid was sent for LDH, total protein, cell count, glucose, pH, cytology, AFB cultures, gram stain and culture and fungal cultures. The patient tolerated the procedure well without obvious complication Coding CPT Codes Pulmonary/Thoracic - Pulmonary and Thoracic: 82046 Thoracentesis w imaging ([id number][place] [facility] [place] Codes (Charges) Pulmonary/Thoracic Procedure 1: Pulmonary and Thoracic: 14007 Thoracentesis w imaging
--- NOTE | 2019-11-04 15:39 | Pulmonary Consultation ---
Date of Consultation November 04, 2019 Assessment & Plan (1) Acute hypoxemic respiratory failure: 84-year-old female with a past medical history of recently diagnosed extensive stage small cell lung carcinoma presenting with neutropenic fever found to have pneumonia and recurrent left pleural effusion currently in an acute hypoxemic respiratory failure. I performed a thoracentesis of the left side and removed roughly 600 mL of fluid. Pleural fluid studies are pending. I did send for repeat cytology of the pleural fluid. She did have symptomatic improvement after the thoracentesis. The left upper lobe collapse likely has been a chronic collapse and she does have severe focal narrowing in the left upper lobe as per Dr. Jimenez's bronchoscopy and as evidenced on the CT of her chest.. I did discuss the case with him. She had a very significant complication post bronchoscopy and required intubation. I suspect that she would do very poorly with stent placement in the left upper lobe, as again, this is a chronic condition that she has had and she would likely do very poorly with anesthesia and the procedure itself. I think discussion with radiation oncology would be prudent to see if radiation would help reduce some of the tumor burden and open up that left upper lobe. I also think palliative care consultation would be prudent given her advanced age and advanced stage malignancy. Pulmonary will continue to follow. Thank you for the consult. (2) Extensive stage primary small cell carcinoma of lung: (3) Recurrent left pleural effusion: (4) Consolidation of left upper lobe of lung: (5) Acute pneumonia: History of Present Illness Reason for Consultation: Acute hypoxemic respiratory failure with history of extensive stage small cell carcinoma Requesting Physician: Family medicine team Attending Physician: Al Mi DO History of Present Illness 84-year-old female with a recent diagnosis of extensive stage small cell carcinoma with likely metastases to the thoracic spine, left upper lobe collapse and associated left lower lobe pleural effusion who presented to the hospital due to increasing shortness of breath and lethargy. She underwent bronchoscopy with endobronchial biopsies, EBUS and BAL on 09/25/2019 and s ubsequently was diagnosed with small cell lung cancer. During the bronchoscopy, she went into respiratory failure and was subsequently intubated. Since that time she has undergone chemotherapy on 10/19/2019 with a course of carboplatinum, etoposide and atezolizumab. She is also underwent a port placement. This time around she was admitted on 11/01/2023 neutropenic fever with sepsis. The thought was that she had pneumonia. She has been on broad-spectrum antibiotics. She underwent Neupogen and her counts have come up since Neupogen injection. Pulmonary is consulted due to acutely worsening respiratory failure on 11/04/2019 and currently she is requiring 5 L via oxygen mask. It appears that she is having an enlarging effusion on the left lung. I performed a pleural ultrasound which demonstrated small to moderate size left pleural effusion. I tapped the effusion and was able to remove roughly 600 mL of yellow appearing fluid. Initially, actually had some trouble with the initial thoracentesis but I was able to remove roughly 200 mL of clear yellow fluid. On subsequent thoracentesis a few rib spaces up from the initial insertion, I was able to remove approximately 3-400 more mL of fluid that appeared rust colored. This may have been traumatic from the initial thoracentesis. Patient noted that she felt better after the thoracentesis. She denies any fevers, chest pain, nausea or vomiting. She is very lethargic. She received a dose of oxycodone recently. I did speak with the patient's son who was concerned about his mother's condition and updated him regarding her status. Allergies Allergy/AdvReac Type Severity Reaction Status Date / Time diclofenac Allergy Intermediate ITCHING Verified 11/01/19 11:25 WITH NAUSEA dicloxacillin Allergy Intermediate ITCHING Verified 11/01/19 11:25 WITH NAUSEA levofloxacin Allergy Intermediate ITCHING Verified 11/01/19 11:25 WITH NAUSEA naproxen Allergy Intermediate ITCHING Verified 11/01/19 11:25 WITH NAUSEA Penicillins Allergy Intermediate Hives Verified 11/01/19 11:25 risedronate sodium Allergy Intermediate ITCHING Verified 11/01/19 11:25 [From Actonel] AND NAUSEA Home Medications Home Medications Medication Instructions Recorded Confirmed Type nitroglycerin 0.4 mg sublingual 0.4 mg SL Q5M #30 tab 11/13/18 11/01/19 Rx tablet rosuvastatin 20 mg tablet 20 mg PO HS tab 02/12/19 11/01/19 History chlorhexidine gluconate 0.12 % 15 ml BUCCAL BID #1500 ml 04/20/19 11/01/19 Rx mouthwash cholecalciferol (vitamin D3) 50 2,000 units PO BID #30 tab 04/20/19 11/01/19 Rx mcg (2,000 unit) tablet gabapentin 300 mg capsule 300 mg PO QID #120 cap 08/16/19 11/01/19 Rx gabapentin 100 mg capsule 100 mg PO HS #90 cap 09/01/19 11/01/19 Rx budesonide 1 mg INH QID PRN 09/22/19 11/01/19 History hydrocodone 5 mg-acetaminophen 325 1 tab PO Q6H PRN #120 tab 10/08/19 11/01/19 Rx mg tablet albuterol sulfate 90 mcg/actuation 2 puffs INHALATION Q4H PRN #18 gm 10/12/19 11/01/19 Rx aerosol inhaler dexamethasone 4 mg PO UD 10/22/19 11/01/19 History humidification for oxygen #1 ea 10/22/19 Rx olanzapine 2.5 mg PO UD 10/22/19 11/01/19 History ondansetron 8 mg PO Q12H PRN 10/22/19 11/01/19 History prochlorperazine maleate 10 mg PO Q8H PRN 10/22/19 11/01/19 History Oxygen Home 10/27/19 10/27/19 History Spiriva with HandiHaler 1 cap INH QAM 11/01/19 11/01/19 History acetaminophen [Tylenol Extra 500 mg PO Q6H PRN 11/01/19 11/01/19 History Strength] aspirin 81 mg PO HS 11/01/19 11/01/19 History calcium carbonate [Calcium 500] 500 mg PO QDL 11/01/19 11/01/19 History furosemide 40 mg PO QDL 11/01/19 11/01/19 History metoprolol succinate 12.5 mg PO HS 11/01/19 11/01/19 History multivitamin [Daily Multi-Vitamin] 1 tab PO QDL 11/01/19 11/01/19 History omeprazole 40 mg PO QAM 11/01/19 11/01/19 History sertraline [Zoloft] 50 mg PO QAM 11/01/19 11/01/19 History tizanidine 1 mg PO TID PRN 11/01/19 11/01/19 History Patient History Medical History Acid reflux Acquired lymphocytosis Anemia Arthritis CAD (coronary artery disease) s/p three BMS's to RCA in 2016 COPD (chronic obstructive pulmonary disease) History of atrial fibrillation FOLLLOWED BY YVETTE KENNY (ABRAMS)- NO AC- H/O SUBDURAL HEMATOMA History of [place] (myocardial infarction) 2016 History of TIA (transient ischemic attack) LAST EVENT OVER 5 YEARS AGO Hyperlipidemia Lumbar disc disease On home oxygen therapy WEARS 2-3L CONT. Pleural effusion on left Monitored by pulm- not causing acute distress- thoracentesis not needed at this time. Pulmonary hypertension Situational depression Small cell lung cancer, overlapping sites of left lung NEW DX Spinal cord stimulator status IMPLANTED 2012 (ENCOURAGED TO BRING REMOTE IN AND PAPERWORK) Vitamin D deficiency Surgical History History of anesthesia reaction "TROUBLE BREATHING" History of appendectomy History of bronchoscopy History of cataract surgery RT/LEFT History of cholecystectomy History of colonoscopy History of esophagogastroduodenoscopy (EGD) History of facial surgery FELL 2018 ("FRACTURE OF FACE") HARDWARE/SCREWS INTACT History of heart artery stent 2015 (3 STENTS PLACED) [facility] History of inguinal hernia repair History of splenectomy 2003 History of tooth extraction Family History Mother Hypertension Brother Gallbladder disease Denies family history of Ovarian cancer Prostate cancer Myocardial infarction Breast cancer Colorectal cancer Social History Preferred Language: Romansh Communication Ability: Effective Visual Impairment: No Limitations Hearing Ability: Normal Bumper Operator Required: No Beliefs That Will Affect Care: Mormon Mormon Beliefs: METH marital status: Current Living Situation: Alone current occupational status: retired Feels Safe at Home: Yes Smoking Status: Former smoker Tobacco Type: cigarettes ; Age Started Using Tobacco: 20 ; Age Quit Using Tobacco: 71 ; packs per day: 0.25 ; Cigarettes Per Day: 2016 ; Second Hand Exposure: No ; Hx Alcohol Use: No Hx Substance Use: No Childhood Exposure to Second-Hand Smoke: No caffeine: Yes (tea and coffee) Dental Care, Regularly: Yes Physical Activity Frequency: Daily Seatbelt Use: always Sunscreen Use: Yes Do you think of yourself as: straight/heterosexual Review of Systems Review of Systems: All systems reviewed & are unremarkable except as noted in HPI & below Physical Exam Constitutional: Elderly and lethargic appearing female wearing an oxygen mask in mild distress. Eyes: PERRL, conjunctivae normal, anicteric sclerae ENMT: Ears: + hearing impairment Neck: normal visual inspection Respiratory: Diminished breath sounds on the left with occasional crackles. Relatively clear on the right. Cardiovascular: Irregularly irregular. No obvious murmurs. No significant edema. Gastrointestinal (Abdomen): normal bowel sounds, soft, nontender, no hepatosplenomegaly Musculoskeletal: no cyanosis or clubbing, extremities motor strength 5/5 Skin: no rashes, warm and dry Neurologic: PERRL, EOMI, accommodation nl, no face palsy, no dysarthria Psychiatric: A+Ox3, euthymic affect Results & Data Results & Data ([facility]) Vital Signs (Past 12 Hours) Vital Signs Temp Pulse Resp BP Pulse Ox 11/04/19 11:39 97.5 F L 76 18 112/67 95 11/04/19 08:08 97.9 F 92 H 20 120/71 95 11/04/19 04:11 98.2 F 88 22 101/64 94 I reviewed labs, chest imaging and recent notes. PG Care Time/CCT Total # of Minutes Spent Total Time Spent with Patient: Total time spent is greater than 50% in coordination of care (as documented) at patient's floor/unit and/or counseling patient: [place] [address] Initial Inpt Care Lvl 3 Patient Type Established Diagnoses Acute hypoxemic respiratory failure J96.01 Extensive stage primary small cell carcinoma of lung C34.90 Recurrent left pleural effusion J90 Consolidation of left upper lobe of lung J18.1 Acute pneumonia J18.9 Time Spent (min) 101
[2019-11-04] MEDS ORDERED: FUROSEMIDE 20 MG in SYRINGE 0 ML IV ONE (16:00)
[2019-11-04 16:05] LABS: Glucose Pleural Fluid 83 mg/dl
[2019-11-04 16:11] LABS: LDH Pleural Fluid 96 U/L; Total Protein Pleural Fluid 2.3 g/dl
[2019-11-04 16:35] LABS: Appearance Pleural Fluid HAZY; Basophils, Fluid 0 %; Color Pleural Fluid YELLOW; Eosinophils, Fluid 0 %; Lymphocytes, Fluid 48 %; Mono,Macrophage,Mesothelial 4 %; Neutrophils, Fluid 48 %; RBC Pleural Fluid (A) 3000 /uL; Source Pleural Fluid LEFT LUNG; WBC Pleural Fluid (A) 5995 /uL
--- NOTE | 2019-11-04 17:08 | XRay Report ---
XR chest 1V portable CLINICAL HISTORY: post thoracentesis, left dyspnea COMPARISON STUDY: 11/04/2019 12:53 AM FINDINGS: No significant postprocedural pneumothorax. Unchanged opacification left hemithorax. Unchan ged right basilar atelectasis. IMPRESSION: 1. No evidence of pneumothorax postthoracentesis. 2. Unchanged opacification left hemithorax. ACT 112: Negative or not required by law. The above report was generated using voice recognition software. It may contain grammatical, syntax or spelling errors. Electronically signed by: Carlitos Chery M.D. 11/04/2019 5:07 PM
--- NOTE | 2019-11-04 17:29 | Billing Data ---
Date of Service November 04, 2019 Coding Level of Care Code 12004 Subseq Hosp Care Lvl 3
[2019-11-04 18:24] LABS: HCO3 ABG 27 mmol/L (19-24); Oxygen Saturation ABG 93.2 % (90-95); PCO2 ABG 54 mmHg (35-46); PO2 ABG 73 mmHg (80-95); pH ABG 7.31 (7.35-7.45)
[2019-11-04 18:27] LABS: Allen Test Pos (Pos)
[2019-11-04] MEDS ORDERED: ALBUTEROL 0.5% NEB SOLN 2.5 MG/0.5 ML VIAL NEB STA (18:36)
[2019-11-04] MEDS ORDERED: LEVALBUTEROL 0.31MG/3 ML VIAL NEB PRN (19:13)
[2019-11-04] MEDS: ROSUVASTATIN CALCIUM 20 MG TAB PO SCH (19:40)
[2019-11-04] MEDS: ASPIRIN 81 MG ECTAB PO SCH (19:41)
[2019-11-04] MEDS: ENOXAPARIN INJ 30 MG/0.3 ML SYR SQ SCH (19:41)
[2019-11-04] MEDS: GABAPENTIN 100 MG CAP PO SCH (19:42)
[2019-11-05] MEDS: CEFEPIME 2,000 MG in SYRINGE 7.5 ML IV SCH ×2 (00:28→12:33)
[2019-11-05] MEDS: PANTOprazole 40 MG TAB PO SCH (08:49)
[2019-11-05] MEDS: SERTRALINE HCL 50 MG TABLET PO SCH (08:49)
[2019-11-05] MEDS: AZITHROMYCIN 250 MG TAB PO SCH (08:49)
[2019-11-05] MEDS: CHOLECALCIFEROL 1,000 UNITS 25 MCG TAB PO SCH ×2 (08:49→20:45)
[2019-11-05] MEDS: GABAPENTIN 300 MG CAP PO SCH ×4 (08:50→20:45)
[2019-11-05] MEDS: UMECLIDINIUM BROMIDE 62.5MCG/BLISTER 7 PUFFS/INHALER INH SCH (08:50)
[2019-11-05] MEDS: METOPROLOL SUCC 25MG EXT REL TAB PO SCH (08:50)
--- NOTE | 2019-11-05 11:13 | Hospitalist Progress Note ---
Date of Service November 05, 2019 Assessment & Plan (1) Neutropenia with fever: Mrs. Brownlee is an 84 yo F with metastatic small cell lung cancer (diagnosed 09/2019) currently on chemotherapy (first infusion 10/21) with port placement on 10/26 who was admitted for neutropenic fever. During hospital stay patient's respiratory status acutely worsened, which was initially concerning for MRSA superinfection given increased WBC, although patient remained afebrile with stable vitals. It would possibly be explained by progressive mucous plugging. Concurrent somnolence increased suspicion of COPD exacerbation with retained carbon dioxide. ABG showed mild respiratory acidosis,not severe enough to be totally responsible for somnolence. Breathing did improve with duo-neb and use of BiPAP overnight. Other possible etiologies for somnolence include residual narcotic effect (patient given a dose of Tanya) vs. development of hospital acquired delirium. Given continued increase in WBC and need of Bipap overnight, we will keep patient for at least one more night and reassess in the am. - Source of fever found to be an HCAP that responded well to IV Cefepime. - patient contracted fever at [facility] from recent chemotherapy - WBC 1.81, ANC 0.05 on admission; patient given Neupogen per Dr. Bermeo - on neutropenic precautions (2) Pancytopenia due to antineoplastic chemotherapy: - likely secondary to chemotherapy as above - patient given Neupogen per Dr. Bermeo (3) Pneumonia: Chest CT on admission showing suspected RML PNA; elevated procalcitonin also favored infectious etiology. - presumed HCAP given recent hospitalization and immunocompromised state (on chemotherapy) - currently on Day 4 of IV Cefepime; vancomycin d/c after MRSA nares neg - recent bronchial washing showing pansensitive pseudomonas. it is possible zosyn would provide adequate coverage, but we will continue with IV cefepime given good response - increase in WBC count greater than expected with neupogen therapy; will order procal to trend a secondary marker of possible infection - on review of chest CT, current PNA appears to possibly be a result of a post- obstructive process given concurrent malignancy. Pulmonary recommended conside ration of palliative radiation to reduce obstructive burden; patient felt not to be a good candidate for bronchial stenting procedure due to frailty - incentive spirometry (4) COPD (chronic obstructive pulmonary disease): - does not appear to be in exacerbation, although we will continue Azithromax for possible anti-inflammatory effect - continue Spiriva every morning - zopenex prn - duonebs prn (5) Atrial fibrillation: - Paroxysmal; patient slipped into A-fib with rate in 130s during hospital , likely to due to acute illness - increased home dose metoprolol succinate 12.5mg from once daily to BID with improved rate control - As per most recent cardiology documentation she is not on anticoagulation due to history of anemia in 04/2019 (small bowel AVMs) (6) Pleural effusion on left: - Suspected malignant - increased on serial CXRs, s/p thoracentesis with removal of 600ml fl - pleural fluid analysis not concerning for infections process (7) Small cell lung cancer, overlapping sites of left lung: - 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 - Started on chemotherapy carboplatin, etoposide, atezolizumab October 19, 2019. - Port placement October 27, 2019 - considering age, frailty, and extensive metastatic disease, patient with poor prognosis overall. Amenable to meeting with palliative care as outpatient in [place]. (8) CAD (coronary artery disease): STEMI in 2016 s/p x3 bare metal stents to RCA 02/2016 Continue ASA, metoprolol, rosuvastatin (9) DVT prophylaxis: Lovenox 30 mg subcutaneous at bedtime Dispo: Tele Diet: Heart Healthy Code: DNR/DNI Admission and Anticipated Discharge Date Admission Date: November 01, 2019 Supervising Physician Co-Signing Physician Notes I personally examined the patient and verified all valle points of history and exam, discussed case, and agree with decision making with Dr Min. feeling better and breathing better. back to [place] O2. pulmonary input appreciated. d/w heme/onc PA-C on phone as well. vitals noted nad breathing unlabored no accessory muscles good effort skin no rashes no pallor or icterus Small cell carcinoma of lung causing obstructive pneumonia, concern on gram negative/Pseudomonas pneumonia neutropenic fever -due to pneumonia -leukocytosis now - seems nonspecific possibly part rebound in face of infection and part brisk response to gCSF. procal marginally higher but not markedly from a few days ago - and she did have worsening in that time -- suspect she's ipmroving again - follow closely pneumonia - see above. not amenable to stenting per pulmonary - therefore agree w ?XRT to help alleviate obstruction some malignant effusion -worse likely in response to pneumonia. breathing is better since thoracentesis. actually fluid seemed more transudative. worsening leukocytosis - see above. clinically is improving. likely bump is multifactorial. follow clinically as well as inflammatory markers probable moderate protein/calorie malnutrition - noted. ongoing vigilance and management as outpt afib -ongoing mild asymptomatic RVR --> now has been rate controlled acute on chronic hypoxic (and mildly hypercapnic) respiratory failure - due to pneumonia, effusion, COPD. now showing improvement again - did require bipap through the night dispo - need to see stability in how she's doing to ensure that she'll be able to maintain at home, f/u heme/onc in office but suspect that she'll need to have next chemo delayed as she recovers Subjective Patient feeling much better today than yesterday. Breathing well. Reports interest in seeing palliative care in [place] as outpatient. Review of Systems Review of Systems: All systems reviewed & are unremarkable except as noted in HPI & below Physical Exam Constitutional: WD/WN, vitals as above cooperative Eyes: + anicteric sclerae ENMT: external ear and nose normal, oropharynx normal Neck: normal visual inspection and trachea midline Respiratory: normal respiratory effort Auscultation: + crackles (bilateral lung bases ) Chest (Breasts): Chest: + vascular access device or port (no surrounding erythmea ) Gastrointestinal (Abdomen): Inspection/Auscultation: abdomen normal to inspection Skin: no rashes, warm and dry Psychiatric: A+Ox3, euthymic affect Results & Data Results & Data ([facility]) Vital Signs (Past 12 Hours) Vital Signs Temp Pulse Pulse Resp BP BP Pulse Ox 11/05/19 10:02 36.7 C 72 18 96/55 L 94 11/05/19 03:49 36.4 C L 72 18 93/44 L 97 11/05/19 03:12 74 23 97 11/04/19 23:34 36.5 C 77 18 137/47 L 96 Resident Activity Tracking Resident Involvement: Resident Care Provided Care Provided: Adult Hospital Medicine (1) Atrial fibrillation Atrial fibrillation type: paroxysmal Qualified Code(s): I48.0 - Paroxysmal atrial fibrillation (2) Pneumonia Laterality: right Lung location: lower lobe of lung Pneumonia type: due to unspecified organism Qualified Code(s): J18.9 - Pneumonia, unspecified organism
[2019-11-05 11:18] LABS: Hematocrit (blood only) 28.9 % (37-47); Hemoglobin 8.7 g/dL (12.0-16.0); Mean Corpuscular Hemoglobin 25.8 pg (25-34); Mean Corpuscular Hgb Conc 30.1 g/dL (32-36); Mean Corpuscular Volume 85.8 fL (80-100); Mean Platelet Volume 9.8 fL (7.4-10.4); Nucleated RBC # (auto) 0.73 K/uL (0-0); Platelet Count 669 K/uL (130-400); RDW Coefficient of Variation 19.4 % (11.5-14.5); RDW Standard Deviation 60.4 fL (36.4-46.3); Red Blood Count 3.37 M/uL (4.2-5.4); White Blood Count 36.06 K/uL (4.8-10.8)
[2019-11-05 11:29] LABS: ALC (manual) 3.79 K/uL (1.2-3.4); ANC (manual) 25.28 K/uL (1.4-6.5); Anisocytosis Present; Howell-Jolly Bodies 1+; Lymphocytes # (manual) 3.79 K/uL (1.2-3.4); Lymphocytes % (manual) 10.5 %; Metamyelocytes # (manual) 1.91 K/uL (0-0); Metamyelocytes % (manual) 5.3 %; Monocytes # (manual) 2.52 K/uL (0.11-0.59); Myelocytes # (manual) 0.65 K/uL (0-0); Myelocytes % (manual) 1.8 %; Neutrophils # (manual) 25.28 K/uL (1.4-6.5); Neutrophils % (manual) 70.1 %; Promyelocytes # (manual) 1.91 K/uL (0-0); Promyelocytes % (manual) 5.3 %; Target Cells 1+; Toxic Granulation 3+
[2019-11-05] MEDS: MULTIVITAMIN TAB PO SCH (12:33)
[2019-11-05] MEDS: CALCIUM CARBONATE 1250MG TAB PO SCH (12:33)
--- NOTE | 2019-11-05 13:22 | Palliative Care Consultation ---
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 She presented to the ER on 10/31 for fever approx 2 weeks post chemo. Pt was found to be neutropenic and was admitted and started on p.o. and IV antibiotics. Patient was given a dose of Neupogen -had an overwhelming response. Patient's white count went from 1.81-36.06. Patient's hemoglobin remained stable at 8.7-9.0. Other past medical history includes Afib, CAD s/p stent placement x2, COPD, HLD, and lumbar disc disease. Patient reports she lives alone, her daughter, Ines Ding lives 5 minutes away, she has a son that lives in the [place] area. Patient states she has advance care plans and her daughter is her healthcare surrogate. Patient with good functional status-lives independently, does have someone come in occasionally to clean the house, she drives short distances to [place] or to her daughter's home. Patient reports her daughter does her grocery shopping and any other longer distance driving. 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 She states she quit approximately 40 years ago. -Patient asking if she should continue her chemo-according to scans done on this admission there is been a decrease in the hilar and mediastinal mass, the left upper lobe bronchus continues to be occluded. Discussed how she has shown improvement even after 1 dose of chemo-encouraged her to continue chemo if she feels up to it. Her next chemo dose is scheduled for next week. Did discuss that if patient felt that having chemo was too much of a burden-she could stop at any time. Discussed that if she did stop chemo it would be appropriate to have her referred to hospice. Did discuss hospice care and what it would entail. -Patient's current's CODE STATUS is DNR/DNI-patient does not have a POLST form at home-we filled one out -original given to patient to take home with her. Patient educated on the use of a pulsed form if needed. -Nursing reports that patient is looking better than yesterday-patient hopes to return home shortly. -Patient can be referred to the outpatient palliative clinic if she desires. (2) Small cell lung cancer: Patient scheduled for chemo next week (3) Neutropenia with fever: Resolving, continue antibiotics (4) Consolidation of left upper lobe of lung: Patient to be evaluated by XRT, collapsed lung will serve as a nidus for fulminant infection (5) COPD (chronic obstructive pulmonary disease): -Continue O2 and inhalers History of Present Illness Reason for Consultation: Discuss goals of care Requesting Physician: Dr Alfaro Attending Physician: Al Mi, History of Present Illness Patient is known to our service from her stay this past September. Pt is an 83 year old female patient with PMH of newly dx SCLC in September of this year - pt received one dose of chemo on 10/18 and tolerated it well . She presented to the ER on 10/31 for fever approx 2 weeks post chemo. Pt was found to be neutropenic and was admitted and started on p.o. and IV antibiotics. Patient was given a dose of Neupogen -had an overwhelming response. Patient's white count went from 1.81-36.06. Patient's hemoglobin remained stable at 8.7-9.0. Other past medical history includes Afib, CAD s/p stent placement x2, COPD, HLD, and lumbar disc disease. Patient reports she lives alone, her daughter, Ines Ding lives 5 minutes away, she has a son that lives in the [facility]. Patient states she has advance care plans and her daughter is her healthcare surrogate. Patient with good functional status-lives independently, does have someone come in occasionally to clean the house, she drives short distances to [place] or to her daughter's home. Patient reports her daughter does her grocery shopping and any other longer distance driving. 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 She states she quit approximately 40 years ago. -Patient asking if she should continue her chemo-according to scans done on this admission there is been a decrease in the hilar and mediastinal mass, the left upper lobe bronchus continues to be occluded. Discussed how she has shown improvement even after 1 dose of chemo-encouraged her to continue chemo if she feels up to it. Her next chemo dose is scheduled for next week. Did discuss that if patient felt that having chemo was too much of a burden-she could stop at any time. Discussed that if she did stop chemo it would be appropriate to have her referred to hospice. Did discuss hospice care and what it would entail. -Patient's current's CODE STATUS is DNR/DNI-patient does not have a POLST form at home-we filled one out -original given to patient to take home with her. Patient educated on the use of a pulsed form if needed. -Nursing reports that patient is looking better than yesterday-patient hopes to return home shortly. -Patient can be referred to the outpatient palliative clinic if she desires. Allergies Allergy/AdvReac Type Severity Reaction Status Date / Time diclofenac Allergy Intermediate ITCHING Verified 11/01/19 11:25 WITH NAUSEA dicloxacillin Allergy Intermediate ITCHING Verified 11/01/19 11:25 WITH NAUSEA levofloxacin Allergy Intermediate ITCHING Verified 11/01/19 11:25 WITH NAUSEA naproxen Allergy Intermediate ITCHING Verified 11/01/19 11:25 WITH NAUSEA Penicillins Allergy Intermediate Hives Verified 11/01/19 11:25 risedronate sodium Allergy Intermediate ITCHING Verified 11/01/19 11:25 [From [facility]] AND NAUSEA Home Medications Home Medications Medication Instructions Recorded Confirmed Type nitroglycerin 0.4 mg sublingual 0.4 mg SL Q5M #30 tab 11/13/18 11/01/19 Rx tablet rosuvastatin 20 mg tablet 20 mg PO HS tab 02/12/19 11/01/19 History chlorhexidine gluconate 0.12 % 15 ml BUCCAL BID #1500 ml 04/20/19 11/01/19 Rx mouthwash cholecalciferol (vitamin D3) 50 2,000 units PO BID #30 tab 04/20/19 11/01/19 Rx mcg (2,000 unit) tablet gabapentin 300 mg capsule 300 mg PO QID #120 cap 08/16/19 11/01/19 Rx gabapentin 100 mg capsule 100 mg PO HS #90 cap 09/01/19 11/01/19 Rx budesonide 1 mg INH QID PRN 09/22/19 11/01/19 History hydrocodone 5 mg-acetaminophen 325 1 tab PO Q6H PRN #120 tab 10/08/19 11/01/19 Rx mg tablet albuterol sulfate 90 mcg/actuation 2 puffs INHALATION Q4H PRN #18 gm 10/12/19 11/01/19 Rx aerosol inhaler dexamethasone 4 mg PO UD 10/22/19 11/01/19 History humidification for oxygen #1 ea 10/22/19 Rx olanzapine 2.5 mg PO UD 10/22/19 11/01/19 History ondansetron 8 mg PO Q12H PRN 10/22/19 11/01/19 History prochlorperazine maleate 10 mg PO Q8H PRN 10/22/19 11/01/19 History Oxygen Home 10/27/19 10/27/19 History Spiriva with HandiHaler 1 cap INH QAM 11/01/19 11/01/19 History acetaminophen [Tylenol Extra 500 mg PO Q6H PRN 11/01/19 11/01/19 History Strength] aspirin 81 mg PO HS 11/01/19 11/01/19 History calcium carbonate [Calcium 500] 500 mg PO QDL 11/01/19 11/01/19 History furosemide 40 mg PO QDL 11/01/19 11/01/19 History metoprolol succinate 12.5 mg PO HS 11/01/19 11/01/19 History multivitamin [Daily Multi-Vitamin] 1 tab PO QDL 11/01/19 11/01/19 History omeprazole 40 mg PO QAM 11/01/19 11/01/19 History sertraline [Zoloft] 50 mg PO QAM 11/01/19 11/01/19 History tizanidine 1 mg PO TID PRN 11/01/19 11/01/19 History Patient History Medical History Acid reflux Acquired lymphocytosis Acute hypoxemic respiratory failure Acute pneumonia Anemia Arthritis CAD (coronary artery disease) s/p three BMS's to RCA in 2016 Consolidation of left upper lobe of lung COPD (chronic obstructive pulmonary disease) Extensive stage primary small cell carcinoma of lung History of atrial fibrillation FOLLLOWED BY [facility] NO AC- H/O SUBDURAL HEMATOMA History of [place] (myocardial infarction) 2016 History of TIA (transient ischemic attack) LAST EVENT OVER 5 YEARS AGO Hyperlipidemia Lumbar disc disease On home oxygen therapy WEARS 2-3L CONT. Pleural effusion on left Monitored by pulm- not causing acute distress- thoracentesis not needed at this time. Pulmonary hypertension Recurrent left pleural effusion Situational depression Small cell lung cancer, overlapping sites of left lung NEW DX Spinal cord stimulator status IMPLANTED 2012 (ENCOURAGED TO BRING REMOTE IN AND PAPERWORK) Vitamin D deficiency Surgical History History of anesthesia reaction "TROUBLE BREATHING" History of appendectomy History of bronchoscopy History of cataract surgery RT/LEFT History of cholecystectomy History of colonoscopy History of esophagogastroduodenoscopy (EGD) History of facial surgery FELL 2018 ("FRACTURE OF FACE") HARDWARE/SCREWS INTACT History of heart artery stent 2015 (3 STENTS PLACED) TOI VEROMURALI History of inguinal hernia repair History of splenectomy 2003 History of tooth extraction Family History Mother Hypertension Brother Gallbladder disease Denies family history of Ovarian cancer Prostate cancer Myocardial infarction Breast cancer Colorectal cancer Social History Preferred Language: Czech Communication Ability: Effective Visual Impairment: No Limitations Hearing Ability: Normal 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 Beliefs That Will Affect Care: Rastafari Rastafari Beliefs: METH marital status: Current Living Situation: Alone current occupational status: retired Feels Safe at Home: Yes Smoking Status: Former smoker Tobacco Type: cigarettes ; Age Started Using Tobacco: 20 ; Age Quit Using Tobacco: 71 ; packs per day: 0.25 ; Cigarettes Per Day: 2016 ; Second Hand Exposure: No ; Hx Alcohol Use: No Hx Substance Use: No Childhood Exposure to Second-Hand Smoke: No caffeine: Yes (tea and coffee) Dental Care, Regularly: Yes Physical Activity Frequency: Daily Seatbelt Use: always Sunscreen Use: Yes Do you think of yourself as: straight/heterosexual Review of Systems Review of Systems: Patient denies fever over the last 48 hours, chills, chest pain, increased shortness of breath or abdominal pain Positive for weakness and fatigue, shortness of breath with exertion. Physical Exam Physical Exam: PE: Patient's breathing appears improved from when she was last seen by myself on 09/27-she was not pursed lip breathing during visit. Patient does become fairly short of breath with minimal conversation. HEENT: EOMI, hearing within normal limits Respirations: Diminished breath sounds left upper zone, patient currently on O2 at 4 L CV: Regular rate, no edema Abdomen: Soft, nontender Neuro: Alert and oriented x4 Results & Data Vital Signs (Past 12 Hours) Vital Signs Temp Pulse Pulse Resp BP BP Pulse Ox 11/05/19 11:55 98.4 F 76 18 90/52 L 95 11/05/19 10:02 98.1 F 72 18 96/55 L 94 11/05/19 03:49 97.5 F L 72 18 93/44 L 97 11/05/19 03:12 74 23 97 PG Care Time/CCT Total # of Minutes Spent Total Time Spent with Patient: Total time spent 70 minutes with greater than 50% of the time spent at bedside discussing goals of care as well as further treatments, collaborated with attending physician as well as case management. Coding Level of Care Code 35796 Inpt Consult Level 3 Diagnoses Goals of care, counseling/discussion Z71.89 Small cell lung cancer C34.90 Neutropenia with fever D70.9; R50.81 Consolidation of left upper lobe of lung J18.1 COPD (chronic obstructive pulmonary disease) J44.9 Time Spent (min) 70
--- NOTE | 2019-11-05 15:55 | Pulmonology Progress Note ---
Date of Service November 05, 2019 Assessment & Plan (1) Acute hypoxemic respiratory failure: 84-year-old female with a past medical history of recently diagnosed extensive stage small cell lung carcinoma presenting with neutropenic fever found to have pneumonia and recurrent left pleural effusion currently in an acute hypoxemic and hypercapnic respiratory failure. Thoracentesis yesterday yielded 600 mL of clear yellow fluid. The fluid appears to be a transudate based on the pleural fluid chemistries. Cytology pending. Cultures pending. She did appear to have some symptomatic benefit from the thoracentesis. Oxygenation has largely remained the same. Palliative care has seen the patient and she has indicated that she would prefer to continue with chemotherapy for the time being. She is a DO NOT RESUSCITATE and DO NOT INTUBATE. I did give her 20 mg of IV Lasix yesterday. I do suspect that she has some degree of volume overload. I would recommend starting her on oral Lasix and having her check her daily weights. 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 She is not 4.5 L positive since admission. Recommend BiPAP PRN. Judicious use of opiates for pain control and air hunger. At this time, pulmonary will sign off. Thank you for the consult. Please call us with questions. Pulmonary will continue to follow. Thank you for the consult. (2) Extensive stage primary small cell carcinoma of lung: (3) Recurrent left pleural effusion: (4) Consolidation of left upper lobe of lung: (5) Acute pneumonia: (6) Acute hypercapnic respiratory failure: Admission and Anticipated Discharge Date Admission Date: November 01, 2019 Subjective Patient is much more awake and alert today. She slept with BiPAP yesterday. She was found to be in acute respiratory acidosis likely related to the narcotics that she received during the day and deconditioning. Today she is more alert and in good spirits. Breathing is much improved from yesterday per her account. She is normally on 3 L of oxygen. Currently on 4-1/2 L of oxygen. Physical Exam Constitutional: Elderly and lethargic appearing female wearing an oxygen mask in mild distress. Eyes: PERRL, conjunctivae normal, anicteric sclerae ENMT: Ears: + hearing impairment Neck: normal visual inspection Respiratory: Diminished breath sounds on the left with occasional crackles. Relatively clear on the right. Cardiovascular: Irregularly irregular. No obvious murmurs. No significant edema. Gastrointestinal (Abdomen): normal bowel sounds, soft, nontender, no hepatosplenomegaly Musculoskeletal: no cyanosis or clubbing, extremities motor strength 5/5 Skin: no rashes, warm and dry Neurologic: PERRL, EOMI, accommodation nl, no face palsy, no dysarthria Psychiatric: A+Ox3, euthymic affect Results & Data Results & Data ([facility]) Vital Signs (Past 12 Hours) Vital Signs Temp Pulse Pulse Resp BP BP Pulse Ox 11/05/19 15:39 97.9 F 71 19 108/63 98 11/05/19 11:55 98.4 F 76 18 90/52 L 95 11/05/19 10:02 98.1 F 72 18 96/55 L 94 PG Care Time/CCT Total # of Minutes Spent Total Time Spent with Patient: Total time spent is greater than 50% in coordination of care (as documented) at patient's floor/unit and/or counseling patient: Coding Level of Care Code 77350 Subseq Hosp Care Lvl 3 Diagnoses Acute hypoxemic respiratory failure J96.01 Extensive stage primary small cell carcinoma of lung C34.90 Recurrent left pleural effusion J90 Consolidation of left upper lobe of lung J18.1 Acute pneumonia J18.9 Acute hypercapnic respiratory failure J96.02
--- NOTE | 2019-11-05 18:19 | Billing Data ---
Date of Service November 05, 2019 Coding Level of Care Code 45161 Subseq Hosp Care Lvl 3
[2019-11-05] MEDS: ENOXAPARIN INJ 30 MG/0.3 ML SYR SQ SCH (20:44)
[2019-11-05] MEDS: GABAPENTIN 100 MG CAP PO SCH (20:45)
[2019-11-05] MEDS: ROSUVASTATIN CALCIUM 20 MG TAB PO SCH (20:46)
[2019-11-05] MEDS: ASPIRIN 81 MG ECTAB PO SCH (20:46)
[2019-11-05] MEDS ORDERED: HEPARIN 100 UNIT/ML 5ML FLUSH FLUSH PRN (21:40)
[2019-11-06] MEDS: METOPROLOL SUCC 25MG EXT REL TAB PO SCH ×2 (00:14→09:01)
[2019-11-06] MEDS: CEFEPIME 2,000 MG in SYRINGE 7.5 ML IV SCH ×2 (00:14→11:58)
[2019-11-06 05:46] LABS: Hematocrit (blood only) 28.1 % (37-47); Hemoglobin 8.9 g/dL (12.0-16.0); Mean Corpuscular Hemoglobin 26.5 pg (25-34); Mean Corpuscular Hgb Conc 31.7 g/dL (32-36); Mean Corpuscular Volume 83.6 fL (80-100); Mean Platelet Volume 9.9 fL (7.4-10.4); Nucleated RBC # (auto) 0.92 K/uL (0-0); Nucleated RBC % (auto) 2.3 %; Platelet Count 748 K/uL (130-400); RDW Coefficient of Variation 19.2 % (11.5-14.5); RDW Standard Deviation 57.9 fL (36.4-46.3); Red Blood Count 3.36 M/uL (4.2-5.4); White Blood Count 40.02 K/uL (4.8-10.8)
[2019-11-06 06:13] LABS: ALC (manual) 1.72 K/uL (1.2-3.4); ANC (manual) 30.66 K/uL (1.4-6.5); Echinocytes 1+; Lymphocytes # (manual) 1.72 K/uL (1.2-3.4); Lymphocytes % (manual) 4.3 %; Monocytes # (manual) 4.16 K/uL (0.11-0.59); Monocytes % (manual) 10.4 %; Myelocytes # (manual) 0.36 K/uL (0-0); Myelocytes % (manual) 0.9 %; Neutrophils # (manual) 30.66 K/uL (1.4-6.5); Neutrophils % (manual) 76.6 %; Ovalocytes 1+; Promyelocytes # (manual) 3.12 K/uL (0-0); Promyelocytes % (manual) 7.8 %; Toxic Granulation 1+
[2019-11-06 06:24] LABS: Creatinine Clr Calc Pharmacy 60.2 ml/min; Est GFR (African American) 99.9; Est GFR (Non-African American) 86.2
[2019-11-06] MEDS: UMECLIDINIUM BROMIDE 62.5MCG/BLISTER 7 PUFFS/INHALER INH SCH (08:58)
[2019-11-06] MEDS: PANTOprazole 40 MG TAB PO SCH (09:01)
[2019-11-06] MEDS: GABAPENTIN 300 MG CAP PO SCH ×2 (09:01→13:17)
[2019-11-06] MEDS: SERTRALINE HCL 50 MG TABLET PO SCH (09:02)
[2019-11-06] MEDS: CHOLECALCIFEROL 1,000 UNITS 25 MCG TAB PO SCH (09:02)
[2019-11-06] MEDS: MULTIVITAMIN TAB PO SCH (11:33)
[2019-11-06] MEDS: CALCIUM CARBONATE 1250MG TAB PO SCH (11:33)
--- NOTE | 2019-11-06 12:59 | Discharge Summary ---
Date of Service November 06, 2019 Admission HPI Per Admitting Provider Key Brownlee is an 84-year-old female with metastatic small cell lung cancer who presents to the ER due to fever, increasing fatigue and general weakness over the last 24 hours. She had a recent port placement on October 27, 2019. Last chemotherapy 11 days ago. Generally felt unwell yesterday with increasing fatigue and generalized weakness. Last evening started having chills with subjective fever of 102.5 F last night. Mild increased shortness of breath today, no chest pain. Loss of taste since starting chemotherapy 3 weeks ago. No change in smell. Also notes loss of voice present prior to chemotherapy but worse afterwards. Not currently receiving radiation. In the ER she had a CT scan showing right middle lobe tree-in-bud opacities concerning for pneumonia. Procalcitonin was elevated and she was started on cefepime. Admission Exam Per Admitting Provider Constitutional: well developed and + frail appearing; + not well nourished and no acute distress Eyes: + anicteric sclerae; normal pupil size ENMT: Ears: no external ear abnormality Nose: no external nose abnormality Mouth: + dry oral mucous membranes Neck: normal visual inspection and trachea midline Respiratory: Auscultation: + diminished lung sounds (Bilaterally L > R) and + crackles (Throughout); no wheezes Cardiovascular: Rate/Rhythm: regular rhythm and + tachycardic Heart Sounds: no murmur Vessels: no JVD Extremities: normal capillary refill; no calf tenderness and no pedal edema Gastrointestinal (Abdomen): normal bowel sounds, soft, nontender, no hepatosplenomegaly Musculoskeletal: no cyanosis or clubbing, extremities motor strength 5/5 Skin: no rashes, warm and dry Neurologic: moves all extremities and awake; no focal motor deficits (Grossly normal) and not confused Speech / Cognition: normal speech Psychiatric: A+Ox3, euthymic affect Lymphatic: no cervical or axillary lymphadenopathy Principal Diagnosis Pneumonia w/ bronchus obstruction 2/2 lung mass Discharge Exam General: A&Ox3. NAD. Cooperative. HEENT: Atraumatic, normocephalic. Pulm: L rales present, RLL crackles. Symmetrical chest rise. No increased work of breathing. No respiratory distress. Cardiac: RRR, systolic murmer present. Radial pulses intact and symmetrical. Abdominal: Nontender, nondistended, soft. BS present. Discharge Data Allergies Allergy/AdvReac Type Severity Reaction Status Date / Time diclofenac Allergy Intermediate ITCHING Verified 11/01/19 11:25 WITH NAUSEA dicloxacillin Allergy Intermediate ITCHING Verified 11/01/19 11:25 WITH NAUSEA levofloxacin Allergy Intermediate ITCHING Verified 11/01/19 11:25 WITH NAUSEA naproxen Allergy Intermediate ITCHING Verified 11/01/19 11:25 WITH NAUSEA Penicillins Allergy Intermediate Hives Verified 11/01/19 11:25 risedronate sodium Allergy Intermediate ITCHING Verified 11/01/19 11:25 [From Actonel] AND NAUSEA Consultations 11/01/19 12:30 ED Decision to Admit Stat 11/02/19 09:13 Consult Oncology Routine 11/04/19 08:44 Consult Pulmonology Routine 11/05/19 08:03 Consult Palliative Care Routine Ordered Studies 11/01/19 10:43 CT angio chest PE protocol Stat 11/04/19 14:29 US point of care ultrasound Urgent Hospital Course (1) Acute hypercapnic respiratory failure: Key Brownlee is an 84yo F with a past medical history of COPD, A. fib, coronary artery disease, arthritis, and recently diagnosed small cell carcinoma of the lung who presented with neutropenic fever and was admitted for pneumonia with pleural effusion and acute hypoxemic/hypercapneic respiratory failure. To do as outpatient: 1: Follow-up with hematology/oncology 2: Follow-up with pulmonology 3: Repeat CBC and procalcitonin on 11/07-11/08 4. Eval for home bipap/trelegy 2/2 bronchus obstruction Obstructive Pneumonia with combined hypoxic/hypercarbic respiratory failure Key presented to the emergency department with 24 hours of fever, increasing fatigue, and weakness. She had had a fever of 102.[address] showed right middle lobe tree-in-bud opacities concerning for pneumonia and procalcitonin was elevated. She had an increased oxygen requirement. She had effusions felt to be malignant, treated as noted below. She had a past bronchial wash present for pansensitive Pseudomonas, she was started on empiric cefepime and vancomycin. Vancomycin was discontinued when MRSA swab was negative. CT was reviewed, and was consistent with a post obstructive process due to small cell lung cancer tumor (further discussed below) which would likely place patient at risk for recurrent pneumonia. Pulmonology was consulted, patient was not a good bronchial stent candidate. It was recommended she follow-up as outpatient with consideration for radiation therapy. Oncology was consulted as noted below. She experienced acute combined hypoxic hypercarbic respiratory failure which improved with antibiotics and BiPAP overnight. She was continued on cefepime with clinical improvement and decreased oxygen requirements over the course of her hospitalization. She completed 6 days of antibiotics while in the hospital and was clinically well, and was converted to complete 10 days of treatment with cefdinir. Based on her obstructive process and brisk response to BiPAP it was suggested that she be evaluated for trilogy as outpatient, this was not able to be authorized by her insurance without additional overnight studies but was recommended for follow-up as outpatient. Neutropenic fever Key had recently been diagnosed with small cell lung cancer with bony metastasis in September 2019. She received chemotherapy with carboplatin, etoposide, and atezolizumab with last treatment on 10/19/2019 with good tolerance but subsequent development of a low-grade fever. During her hospitalization as above she was noted to have a leukopenia with absolute neutrophil count of 50. Oncology was consulted and recommended Neupogen treatment. She had been noted to have chemotherapy induced pancytopenia in the past. She responded well to the Neupogen, and had an aggressive response with a increase of her white blood cell count to 40. This was further discussed with oncology on whether this was due to the Neupogen or reflected underlying infectious process. It was felt that since she was doing clinically well, this likely reflected Neupogen effect and did not portend worsening disease. A pro-Anibal was ordered and was downtrending. She was discharged to complete antibiotics as above with a repeat CBC and pro-calcitonin. Blood cultures had ng at 5 days. Small cell lung cancer with malignant effusion As noted above Key was diagnosed with small cell lung cancer with bony metastasis in September 2019 and received chemotherapy as noted above. She was noted to have good clinical response with reduction in tumor size. Oncology was consulted due to her neutropenic fever and she was treated as above. She did not undergo any acute treatment of her small cell lung cancer during her hospitalization, but due to the obstructive process as noted above she was evaluated as a stent versus radiation candidate. Pulmonology reported that she was a poor stent candidate, and recommended follow-up with oncology and consideration of radiation therapy for shrinkage as outpatient. On CT she was noted to have a recurrent left pleural effusion, she underwent thoracentesis with return of 600 cc of clear yellow fluid. Her effusions appeared more transudative, and it was recommended she use BiPAP as needed with judicious use of opiates for pain control/air hunger to avoid worsening of respiratory status. On admission she was noted to have she was discharged to follow-up with outpatient services. Pleural fluid cultures were pending final read with NGTD at time of discharge. DVT prophylaxis Key was maintained on Lovenox 30 mg subcu for DVT prophylaxis and did not show any signs of acute DVT during her admission. (2) Acute hypoxemic respiratory failure: (3) Acute pneumonia: (4) Consolidation of left upper lobe of lung: (5) Extensive stage primary small cell carcinoma of lung: (6) Pancytopenia due to antineoplastic chemotherapy: (7) Neutropenia with fever: (8) Pneumonia: (9) Pleural effusion on left: (10) Atrial fibrillation: (11) Pulmonary hypertension: (12) COPD (chronic obstructive pulmonary disease): (13) H/O splenectomy: (14) Dyspnea: (15) Hypoxia: (16) Mass of left lung: (17) DVT prophylaxis: Total Time Total Time Spent Total Time Spent (In Minutes): <30 Discharge Plan Discharge Items Patient Disposition: Home - Home Health Services Reason For Visit: NEUTROPENIC FEVER Discharge Diagnosis: Pneumonia Condition on Discharge: Good Activity: Resume your previous activity Non-emergency contact: Primary Care Provider and Physics Technician Call non-emergency contact if: you have any medication questions, your symptoms worsen, your pain is not controlled, your pain is worsening, your pain is unusual for you, your pain is concerning for you and you have a fever Follow-up/Referrals: Teresa Jimenez MD [Physician] - 11/22/19 3:15 pm (Please, follow up at [facility] Pulmonology Office on FridayNovember 21 at 3:15 pm. *The office is located in [address] of [facility] [place], next to this [facility]. If you need to change this appointment, call the office at [phone].) Rolo Ron DO [Primary Care Provider] - 11/11/19 10:00 am (Please, follow up at Dr. Ron' office on Thursday Clary 2nd at 10:00 am. *If you need to change this appointment, call the office at [phone]. PLEASE, WEAR A MASK.) Diet: Heart Healthy Addtl Attending Provider Instructions: You were seen in the hospital for acute pneumonia and neutropenic fever. You were found to have low white blood cells (neutropenia) which improved with medication. You had signs of pneumonia which was treated with antibiotics. You have been continued on antibiotics as noted below. You have had followup appointments as noted below. You have been prescribed an antibiotic, Cefdinir. Please take cefdinir 300mg by mouth twice daily for 4 more days to complete a total course of 10 days including the antibiotics received while in the hospital. If new or worsening symptoms occur, including shortness of breath, fever, chills, night sweats, or increased oxygen requirements, please contact your primary care provider at the number below, or call 911 for evaluation in the emergency department if you are very concerned. Antibiotics may cause diarrhea and increase the risk of an infection called C. difficile. Taking an over the counter probiotic with meals may help reduce this risk and diarrhea. If you develop worsening diarrhea, have any blood in your bowel movements, or have worsening fever please contact your PCP at the number below or call 911 for re-evaluation in the emergency department. An appointment has been made for you with your PCP Dr. Ron for 11/11/19 at 10:00am. If you need to change this appointment, call the office at [phone]. You have had a prescription provided to have blood work, a Complete Blood Count (CBC) and procalcitonin level drawn. Please have your blood drawn on Tuesday 11/07 or Wednesday 11/08 and have the results forwarded to your primary care provider above. An appointment has been made for you with the scouring machine tender, Dr. Jimenez on 11/22/19 at 3:15pm. If you need to change this appointment, call the office at [phone]. If you develop any new or worsening symptoms including fever, chills, sweats, chest pain, chest pressure, difficulty breathing, uncontrolled nausea/vomiting, rash, wheezing, passing out or nearly passing out, bleeding, black/bloody bowel movements, or other new or concerning symptoms please call your primary care physician at [phone], or call 911 for re-evaluation in the emergency department if you are very concerned. Pending Studies at Discharge: Yes Studies:: CBC Procalcitonin Stand-Alone Forms: [facility], Smoking Cessation Medications and DC Order Prescriptions: New cefdinir 300 mg capsule 300 mg PO BID 4 Days Qty: 8 RF: 0 Continued chlorhexidine gluconate 0.12 % mouthwash 15 ml BUCCAL BID Qty: 1500 RF: 0 cholecalciferol (vitamin D3) 2,000 unit tablet 2,000 units PO BID Qty: 30 RF: 0 gabapentin 300 mg capsule 300 mg PO QID Qty: 120 RF: 3 gabapentin 100 mg capsule 100 mg PO HS Qty: 90 RF: 0 (DME) humidification for oxygen Qty: 1 RF: 0 nitroglycerin 0.4 mg tablet, sublingual 0.4 mg SL Q5M Qty: 30 RF: 0 albuterol sulfate 90 mcg/actuation HFA aerosol inhaler 2 puffs inhalation Q4H PRN (Reason: Shortness Of Breath Or Wheezing) Qty: 18 RF: 2 hydrocodone-acetaminophen 5-325 mg tablet 1 tab PO Q6H PRN (Reason: pain) Qty: 120 RF: 0 rosuvastatin 20 mg tablet 20 mg PO HS RF: 0 budesonide 1 mg/2 mL suspension for nebulization 1 mg INH QID PRN (Reason: SHORT OF BREATH) RF: 0 tizanidine 2 mg tablet 1 mg PO TID PRN (Reason: Muscle Spasticity) RF: 0 acetaminophen [Tylenol Extra Strength] 500 mg Tablet 500 mg PO Q6H PRN (Reason: Pain) RF: 0 calcium carbonate [Calcium 500] 500 mg calcium (1,250 mg) Tablet 500 mg PO QDL RF: 0 multivitamin [Daily Multi-Vitamin] tablet 1 tab PO QDL RF: 0 furosemide 40 mg tablet 40 mg PO QDL RF: 0 omeprazole 40 mg capsule,delayed release(DR/EC) 40 mg PO QAM RF: 0 aspirin 81 mg tablet,delayed release (DR/EC) 81 mg PO HS RF: 0 metoprolol succinate 25 mg tablet extended release 24 hr 12.5 mg PO HS RF: 0 sertraline [Zoloft] 50 mg tablet 50 mg PO QAM RF: 0 Spiriva with HandiHaler 18 mcg capsule, w/inhalation device 1 cap INH QAM RF: 0 prochlorperazine maleate 10 mg Tablet 10 mg PO Q8H PRN (Reason: Nausea) RF: 0 olanzapine 2.5 mg Tablet 2.5 mg PO UD RF: 0 ondansetron 8 mg Tablet,Disintegrating 8 mg PO Q12H PRN (Reason: Nausea) RF: 0 dexamethasone 4 mg Tablet 4 mg PO UD RF: 0 (DME) Oxygen Home Liters Per Minute RF: 0 Discharge Orders: Discharge Order (Routine); Ordered 11/06/19 Ordered By: Tom Gotti/Other Patient Handouts: Neutropenia, Preventing Pneumonia Admission Data Admit Date/Time: 11/01/19 14:00 Attending Provider: Al Mi Admit Provider: Isrrael Brand Primary Care Provider: Rolo Ron Other Providers: Isrrael Brand ; [facility] ; Joey Bermeo V. ; Michael Alfaro ; Norma Mnotoya Other Interventions: Discharge Summary Assessment (RN) Last Done: 11/06/19 15:59 DC Date/Time DO NOT enter until pt leaves facility: 11/06/19 16:49 Supervising Physician Co-Signing Physician Notes I personally examined the patient and verified all valle points of history and exam, discussed case, and agree with decision making with Dr Allison. feels good breathing is better feels up to going home feels she'll be safe at home, wants to go home vitals ntoed nad heent nc at mmm lungs surprisingly clear with good air entry (L lung sounds far better than would expect w films) - cta no r/r/w good effort no accessory muscles. no focal neuro deficits skin no rashes no pallor or icterus Small cell carcinoma of lung causing obstructive pneumonia, concern on gram negative/Pseudomonas pneumonia neutropenic fever -due to pneumonia -leukocytosis now - seems nonspecific possibly part rebound in face of infection and part brisk response to gCSF. procal trending down and she's improving greatly clinically - safe for home, f/u CBC next week (on discussions w heme/onc last week -PAC did think possible that WBC were all in response to gCSF) pneumonia - see above. not amenable to stenting per pulmonary - therefore agree w ?XRT to help alleviate obstruction some (outpt eval for this). has had sseveral days of cefepime, improved quickly. in discussions of risk/benefit - while there is no clearly "perfect" choice - will finish treatment with cefdinir since she improved so quickly, will have less chance of Cdiff or other ADRs than with a quinolone, and that will also reserve quinolones for future given that with her obstruction she is unfortunately likely to get recurrent infections. malignant effusion -worse likely in response to pneumonia. breathing is better since thoracentesis. actually fluid seemed more transudative making it likely multifactorial. outpt f/u worsening leukocytosis - see above. clinically is improving. likely bump is multifactorial. she looks/feels/examines better and procal trending down. probable moderate protein/calorie malnutrition - noted. ongoing vigilance and management as outpt afib -ongoing mild asymptomatic RVR --> now has been rate controlled. acute on chronic hypoxic (and mildly hypercapnic) respiratory failure - due to pneumonia, effusion, COPD. stable. did have mild respiratory acidosis a few days ago likely also somewhat precipitated by pain meds. she does feel better on bipap - R2 noted that case management did not see criteria that we would be able to set up bipap/noninvasive ventilation at discharge, but hopefully PCP/pulm may be able to help facilitate this since it did help her feel better dispo - home today, close f/u Resident Activity Tracking Resident Involvement: Resident Care Provided Care Provided: Adult Hospital Medicine
[2019-11-06] MEDS ORDERED: SODIUM CHLORIDE 0.9% 1000ML 250 ML IV ONE (15:11)
[2019-11-06 15:54] VITALS: TEMP 97.7; O2SAT 96
[2019-11-06 16:12] VITALS: BP 96/57
[2019-11-06 16:56] VITALS: PULSE 81
[2019-11-06] MEDS ORDERED: LACTOBACILLUS ACIDOPHILUS 1 GM PACK PO SCH (17:00)
--- NOTE | 2019-11-06 18:28 | Billing Data ---
Date of Service November 06, 2019 Coding Level of Care Code D/C Day Management <30 mins
== END 2019-11-06 16:49 | disposition home health service (06) | DRG 177 ==
LOC: ED 10:16 → SUATTDRO 14:00 → 2S 14:00
DX: E44.0 Moderate protein-calorie malnutrition; J91.0 Malignant pleural effusion; J96.01 Acute respiratory failure with hypoxia; I25.10 Atherosclerotic heart disease of native coronary artery without angina pectoris; K21.9 Gastro-esophageal reflux disease without esophagitis; C34.92 Malignant neoplasm of unspecified part of left bronchus or lung; Z51.5 Encounter for palliative care; J15.1 Pneumonia due to Pseudomonas; C79.51 Secondary malignant neoplasm of bone; D61.810 Antineoplastic chemotherapy induced pancytopenia; E55.9 Vitamin D deficiency, unspecified; I25.2 Old myocardial infarction; Z66 Do not resuscitate; T45.1X5A Adverse effect of antineoplastic and immunosuppressive drugs, initial encounter; J44.9 Chronic obstructive pulmonary disease, unspecified; I48.91 Unspecified atrial fibrillation; J44.0 Chronic obstructive pulmonary disease with (acute) lower respiratory infection; E78.5 Hyperlipidemia, unspecified; Z86.73 Personal history of transient ischemic attack (TIA), and cerebral infarction without residual deficits